=== PATIENT | female | born 1940 | race Caucasian/White ===

== ENCOUNTER 2023-08-03 23:29 | Inpatient (IN) | payer MEDICARE, OTHER, SELFPAY ==
[2023-08-03 20:08] VITALS: BP 212/97
--- NOTE | 2023-08-03 20:08 | ED.GENMED ---
History of Present Illness
General
Chief Complaint: Weakness
Source: patient and ambulance crew
Exam Limitations: none
Time Seen by Provider: 08/03/23 20:03
History of Present Illness
History of Present Illness:
See MDM
Past History
Past History
ED Past Medical History: GERD, HTN and Hypercholesterolemia
ED Past Surgical History: Cholecystectomy, Orthopedic (Bilateral knee replacement, and lumbar laminectomy) and Tonsilectomy
Social History
Tobacco: Non-smoker
Alcohol: None
Drug: None
Personal:
Living: assisted living
Employment: Retired
Family History
Family History: Other (Noncontributory)
Phy Exam
Physical Exam
Physical Exam:
See MDM
Course
Orders/Labs/Results
Orders:
Orders
08/03/23 20:07
Electrocardiogram (*1) Urgent
Reason for Study: Fatigue / Weakness
CT Head W/o Iv Contrast Urgent
Comment:
Reason For Exam: fall, head injury
EKG- Treatment ONCE
08/03/23 20:17
Basic Metabolic Panel Urgent
Complete Blood Count/With Diff Urgent
08/03/23 20:19
0.9% Sodium Chloride 1000 ml [Nss] 1,000 ml IV BOLUS
Acetaminophen [Tylenol] 1,000 mg PO NOW STA
08/03/23 20:40
COVID-19 Antigen Urgent
Source: Nasal Swab
Lactic Acid Q4H
Comment: CANCEL 2nd LACTIC ACID IF 1st LACTIC ACID IS LESS THAN 2
Blood Culture Q30M
FERMIN Source: Blood/Venous
Specimen Description:
Blood Culture Q30M
FERMIN Source: Blood/Venous
Specimen Description:
Influenza A+B Rapid Molecular Urgent
FERMIN Source: Nasal Swab
Specimen Description:
08/03/23 20:51
Urinalysis Reflex To Culture Urgent
Date Specimen was Collected: 08/03/23
Time Specimen was Collected: 20:50
Urine Microscopic Reflex Cult Urgent
08/03/23 21:09
CT Chest W/o Iv Contrast Urgent
Comment:
Reason For Exam: fall, R rib pain
CT Pelvis W/o Iv Contrast Urgent
Comment:
Reason For Exam: pelvic and b/l hip pain
08/03/23 22:17
Case Management Consult ONCE
Case Management Consult: Discharge Planning
Pt Eval And Treat Urgent
Activity Level: Ambulate
08/04/23 00:30
Lactic Acid Q4H
Comment: CANCEL 2nd LACTIC ACID IF 1st LACTIC ACID IS LESS THAN 2
Abnormal Lab Results
08/03/23 08/03/23
20:17 20:51
WBC 11.6 H 10^3/uL
(4.8-10.8)
Abs Immat Gran (auto) 0.1 H 10^3/uL
(0-0.05)
Absolute Neuts (auto) 9.4 H 10^3/uL
(1.4-6.5)
Absolute Monos (auto) 0.8 H 10^3/uL
(0.1-0.6)
Immature Gran % 0.7 H %
(0-0.5)
Neutrophils % 80.7 H %
(42.2-75.2)
Lymphocytes % 10.8 L %
(20.5-51.1)
Sodium 133 L mmol/L
(135-145)
BUN 33 H mg/dl
(7-17)
Creatinine 1.5 H mg/dL
(0.6-1.0)
Glucose 148 H mg/dl
(70-99)
Calcium 10.4 H mg/dl
(8.4-10.2)
Urine Bacteria (Reflex) Few A
(Negative)
Urine Albumin (Reflex) 3+ A
(Neg - Trace)
08/03/23 20:17
08/03/23 20:17
Vital Signs
Initial and Last Documented VS:
Initial Vital Signs
Temp Pulse
100.1 F 86
08/03/23 20:07 08/03/23 20:07
Last Documented Vital Signs
Temp Pulse Resp BP Pulse Ox
100.1 F 81 14 198/72 95
08/03/23 20:07 08/03/23 22:15 08/03/23 22:15 08/03/23 21:27 08/03/23 22:15
MDM/Problems Addressed
Differential Diagnosis Includes:
HPI and MDM Narrative:
82-year-old female presenting from [facility]. Patient states she has been falling over the past several days. She complains of increased weakness. EMS was called initially for lift assist. However, she called them
back because patient is unable to get up or move around.
On exam, patient appears uncomfortable. She complains of pain 'everywhere'. She has multiple bruises throughout her body ages of healing. Most significantly, there is large bruising to right axilla and right chest. Patient denies head trauma but
she has bruising to her right face.
Will obtain CT head, hip x-rays, chest x-ray and basic blood work. If everything negative, patient will require admission for case management and physical therapy for placement
Patient found to be febrile. Will obtain lactic acid, culture, COVID and flu and provide IV fluids and Tylenol
Physical exam
General: tearful and upset, nontoxic
HEENT: protecting airway
Neck: supple
CV: No evidence of cyanosis. Regular rate and rhythm
Resp: No accessory muscle use. Lungs clear
Abd: Non-distended and nontender
Extremities: Chronic appearing lymphedema to bilateral lower extremities
Neuro: alert
Psych: Tearful and upset
Skin: bruising throughout her body with evidence of healing. Large bruising to right axilla and right chest
Problems Addressed including Acute and Chronic Conditions affecting care:
1. Generalized weakness
Acuity: acute
Prognosis: stable
Details: Will obtain basic blood work
2. Frequent falls
Acuity: acute
Prognosis: unstable
Details: Will obtain CT head, rib x-ray and hip x-rays.
Updates
Imaging negative for fracture. No infectious source noted. Will admit overnight for Case management and physical therapy
Differential Diagnosis (but not limited to): Contusions, hip fracture, rib fracture
Testing considered: Cervical spine CT but no tenderness elicited
Drug therapy (if applicable): OTC meds, please see d/c instruction regarding Rx drugs
Amount and/or Complexity of Data Reviewed
Clinical info obtained from: Patient
External data reviewed: N/A
Labs I independently reviewed (but not limited to): Mild leukocytosis
Radiology: the CT scan was personally and independently reviewed. In addition, official CT report reviewed.
Pulse Ox: not hypoxic
EKG independently reviewed: Sinus rhythm, normal axis, no STEMI
Clinical Social Work Aide: N/A
Critical Care: N/A
Risk of Complication:
Social Determinants of health: Good social support
Discussed with other providers: Hospitalist
Escalation of Care includes Admit/Obs: given her weakness, deconditioning and frequent falls, will admit for case management physical therapy
Occasional wrong word or 'sound a like' substitutions may have occurred due to the inherent limitations of voice recognition software. Read the chart carefully and recognize, using context, where substitutions have occurred.
*Critical Care Note
Total Time (30-74mins, 75-104mins- exclusive of procedures): Not Applicable
ED Attending Note
-
Portions of this chart may have been created with voice recognition software.� Occasional wrong word or��sound alike� substitutions may have occurred due to the inherent limitations of voice recognition software.
Discharge Plan
Departure
Patient Disposition: Admit
Date of Disposition: 08/03/23
Time of Disposition: 22:20
Admit to: Med/Surg
Presentation/result/management discussed w/ accepting MD/DO: Hospitalist
Discharge Problem:
Frequent falls, Physical deconditioning
Prescriptions:
No Action
diltiazem HCl 240 mg Capsule,Extended Release 24hr
240 mg PO DAILY
aspirin 81 mg Tablet,Chewable
81 mg PO DAILY
rosuvastatin [Crestor] 20 mg Tablet
20 mg PO DAILY
acetaminophen [Tylenol] 325 mg Tablet
650 mg PO Q6HPRN PRN (Reason: FEVER)
sertraline 100 mg Tablet
100 mg PO QPM
trazodone 50 mg Tablet
25 mg PO HS
dextromethorphan-guaifenesin 10-100 mg/5 mL Liquid
10 ml PO Q6H PRN (Reason: COUGH)
metoprolol succinate 100 mg tablet extended release 24 hr
100 mg PO DAILY@1999
miconazole nitrate 2 % Powder
1 applic TOPICAL BIDPRN PRN (Reason: GROIN,ABD FOLDS FOR RASH)
alprazolam 0.5 mg Tablet
1 mg PO HSPRN PRN (Reason: ANXIETY,SLEEP)
magnesium hydroxide [Milk of Magnesia] 400 mg/5 mL Suspension
30 ml PO DAILYPRN PRN (Reason: CONSTIPATION)
menthol 10 mg Lozenge
10 mg PO TIDPRN PRN (Reason: SORE THROAT)
calcium carbonate 500 mg calcium (1,250 mg) Tablet,Chewable
1,000 mg PO DAILY PRN (Reason: HEARTBURN)
ondansetron 4 mg Tablet,Disintegrating
4 mg PO Q6H PRN (Reason: NAUSEA AND VOMITING)
cholecalciferol (vitamin D3) 25 mcg (1,000 unit) Tablet
50 mcg PO DAILY
Michelle Protect (zinc oxide) 12 % Cream
1 applic TOPICAL BID
miconazole nitrate [Miconazorb AF] 2 % Powder
1 applic topical BID Qty: 85 0RF
furosemide [Lasix] 20 mg tablet
20 mg PO Q OTHER DAY Qty: 14 0RF
Metamucil Packet
0.5 packet PO DAILYPRN PRN (Reason: constipation)
loperamide 2 mg Tablet
2 mg PO DAILYPRN PRN (Reason: diarrhea)
lidocaine 5 % Adhesive Patch,Medicated
1 patch TOPICAL DAILY
Interventions
Interventions:
*Risk Screen - Suicide Last Done: 08/03/23 20:07
*General Assessment Last Done: 08/03/23 20:07
*Neglect/Abuse Screening Last Done: 08/03/23 20:07
[2023-08-03 20:16] VITALS: BP 204/71
[2023-08-03 20:18] VITALS: BP 204/71
[2023-08-03 20:29] LABS: % Basophils 0.3 % (0-2); % Eosinophils 0.8 % (0-6); % Immature Granulocytes 0.7 % (0-0.5); % Lymphocytes 10.8 % (20.5-51.1); % Monocytes 6.7 % (1.7-9.3); % Neutrophils 80.7 % (42.2-75.2); Absolute Eosinophils 0.1 10^3/uL (0-0.7); Absolute Immature Granulocytes 0.1 10^3/uL (0-0.05); Absolute Lymphocytes 1.3 10^3/uL (1.2-3.4); Absolute Monocytes 0.8 10^3/uL (0.1-0.6); Absolute Neutrophils 9.4 10^3/uL (1.4-6.5); Hematocrit 37.9 % (37.0-47.0); Hemoglobin 12.9 g/dL (12.0-16.0); Mean Corpuscular Hgb 29.3 pg (27.0-31.0); Mean Corpuscular Volume 85.9 fL (81.0-99.0); Mean Platelet Volume 9.2 fL (7.4-10.4); Nucleated Red Blood Cells % 0 %; Platelet Count 187 10^3/uL (130-400); Red Blood Cell Count 4.41 10^6/uL (4.20-5.40); White Blood Cell Count 11.6 10^3/uL (4.8-10.8)
[2023-08-03 20:51] VITALS: BP 201/74
[2023-08-03 20:55] LABS: Blood Urea Nitrogen 33 mg/dl (7-17); Calcium 10.4 mg/dl (8.4-10.2); Carbon Dioxide 29 mmol/L (22-30); Chloride 102 mmol/L (98-107); Estimated Creatinine Clearance 36 ml/min; Glucose 148 mg/dl (70-99); Sodium 133 mmol/L (135-145); eGFR 34.36
[2023-08-03 21:04] LABS: Urine Albumin 3+ (Neg - Trace); Urine Bilirubin Negative (Negative); Urine Character Clear (Clear); Urine Color Yellow; Urine Glucose Negative (Negative); Urine Ketone Negative (Negative); Urine Leukocyte Negative (Negative); Urine Nitrite Negative (Negative); Urine Occult Blood Negative (Negative); Urine Urobilinogen Negative (Neg - 1+)
[2023-08-03 21:15] LABS: COVID-19 Antigen Negative (Negative)
[2023-08-03 21:15] LABS: Urine Bacteria Few (Negative); Urine Red Blood Cell 0-2 /HPF (0-2); Urine White Cell 0-2 /HPF (0-5)
--- NOTE | 2023-08-03 21:17 | PHANOTE ---
Addendum entered by Naila Richardson 08/04/23 16:27:
Pages 1 & 2 sent up to ER, home med list updated. Still missing page 4.
Addendum entered by Narciso Manuel 08/04/23 10:13:
08/04/2023, med rec tech, called twice at 0840 and 0945 and both times [facility] said that they will fax over pt.'s med. list, awaiting fax.
Addendum entered by Lorena Pinedo 08/03/23 21:32:
called [phone] and [facility] spoke to her and explained missing pages and she going to fax them over, awaiting fax
Addendum entered by Lorena Pinedo 08/03/23 21:19:
also called [phone], no answer
Original Note:
med rec note- [facility] paperwork missing page 2 and 4, called [facility] at [phone] but no answer
[2023-08-03 21:27] VITALS: BP 198/72
[2023-08-03] MEDS: TYLENOL 1000 MG PO (21:46)
[2023-08-03] MEDS: NSS 1000 IV (21:47)
--- NOTE | 2023-08-03 22:58 | HPS.HSE ---
Addendum entered and electronically signed by Paula Sanches MD 08/03/23 23:04:
Continue loperamide for chronic diarrhea.
Original Note:
Family Physician
-
Family Physician: Renee Bruno DO
Chief Complaint
-
falls
History of Present Illness
82-year-old female past medical history of GERD, hypertension, hypercholesteremia, CKD 3B, lymphedema, stasis dermatitis, insomnia, obesity, chronic ambulatory dysfunction, insomnia presenting from [facility] with falls and weakness and vertigo
since the weekend. She denies passing out. She complains of pain in her upper legs/pelvic area. She had a fever in the hospital today. She denies any symptoms of infection such as headache, sore throat or runny nose, cough, shortness of breath,
chest pain, nausea or vomiting, abdominal pain, urinary symptoms.
She states that she has been having diarrhea for the past 6 months for which she has been taking antidiarrheal. She states that her bilateral lower extremity lymphedema has been stable and has nurse perform wound care. Her legs are not painful and
she denies any discharge from the legs.
Medical History
Past Medical History
Past Medical History: Reports Other ( GERD, hypertension, hypercholesteremia, CKD 3B, lymphedema, stasis dermatitis, insomnia, obesity, chronic ambulatory dysfunction, insomnia)
Past Surgical History: Reports Other ( Cholecystectomy, Orthopedic (Bilateral knee replacement, and lumbar laminectomy) and Tonsilectomy)
Social History
Tobacco: Non-smoker
Alcohol: None
Drug: None
Family History
Family History: Not pertinent
Allergies / Home Medications
Allergies reflects when Allergies were last updated in [facility].
Home Medications with original date entered in [facility]
Allergy/Medication List:
Allergies
Allergy/AdvReac Type Severity Reaction Status Date / Time
shellfish derived Allergy Rash Verified 01/04/23 20:57
Home Medications
aspirin 81 mg chewable tablet 81 mg PO DAILY Blood clot prevention/tx 01/10/22
diltiazem HCl 240 mg capsule,extended release 24 hr 240 mg PO DAILY HYPERTENSION 01/10/22
rosuvastatin 20 mg tablet (Crestor) 20 mg PO DAILY High cholesterol 01/10/22
acetaminophen 325 mg tablet (Tylenol) 650 mg PO Q6HPRN PRN FEVER 09/12/22
sertraline 100 mg tablet 100 mg PO QPM Depression 09/12/22
alprazolam 0.5 mg tablet 1 mg PO HSPRN PRN ANXIETY,SLEEP 12/10/22
calcium carbonate 500 mg calcium (1,250 mg) chewable tablet 1,000 mg PO DAILY PRN HEARTBURN 12/10/22
cholecalciferol (vitamin D3) 25 mcg (1,000 unit) tablet 50 mcg PO DAILY Supplement 12/10/22
dextromethorphan-guaifenesin 10 mg-100 mg/5 mL oral liquid 10 ml PO Q6H PRN COUGH 12/10/22
magnesium hydroxide 400 mg/5 mL oral suspension (Milk of Magnesia) 30 ml PO DAILYPRN PRN CONSTIPATION 12/10/22
menthol 10 mg lozenges 10 mg PO TIDPRN PRN SORE THROAT 12/10/22
metoprolol succinate 100 mg tablet,extended release 24 hr 100 mg PO DAILY@2000 Blood Pressure 12/10/22
miconazole nitrate 2 % topical powder 1 applic topical BIDPRN PRN GROIN,ABD FOLDS FOR RASH 12/10/22
ondansetron 4 mg disintegrating tablet 4 mg PO Q6H PRN NAUSEA AND VOMITING 12/10/22
trazodone 50 mg tablet 25 mg PO HS INSOMNIA 12/10/22
zinc oxide 12 % topical cream (Michelle Protect (zinc oxide)) 1 applic topical BID GROIN AND BUTTOCKS FOR REDNESS 12/10/22
furosemide 20 mg tablet (Lasix) 20 mg PO Q OTHER DAY Fluid retention/Swelling #14 tabs 12/12/22
miconazole nitrate 2 % topical powder (Miconazorb AF) 1 applic topical BID Skin issues #85 grams 12/12/22
lidocaine 5 % topical patch 1 patch topical DAILY low back 08/03/23
loperamide 2 mg tablet 2 mg PO DAILYPRN PRN diarrhea 08/03/23
psyllium 0.5 packet PO DAILYPRN PRN constipation 08/03/23
Review of Systems
-
History Source: Patient
A 12 point ROS was completed and negative except as noted: Yes
Constitutional: Reports No Symptoms
EENT: Reports No Symptoms
Respiratory: Reports No Symptoms
Cardiac: Reports No Symptoms
Abdomen/GI: Reports No Symptoms
: Reports No Symptoms
Musculoskeletal: Reports No Symptoms
Skin: Reports No Symptoms
Neurological: Reports No Symptoms
Endocrine: Reports No Symptoms
Hematologic/Lymphatic: Reports No Symptoms
Psych: Reports No Symptoms
Physical Exam
Vital Signs
Vital Signs
Temp Pulse Resp BP Pulse Ox
100.7 F H 81 14 198/72 95
08/03/23 22:38 08/03/23 22:15 08/03/23 22:15 08/03/23 21:27 08/03/23 22:15
Physical Exam
General: Well Developed, Well Nourished and No Apparent Distress
HEENT: NormoCephalic, Moist mucous membranes and Atraumatic
Respiratory: Clear
Cardiac: S1/S2 and Regular Rhythm; No Murmur or Rub
GI: Soft, Non Tender, Non Distended and Normal Bowel Sounds; No Organomegaly
Rectal: Deferred by Provider
Musculoskeletal: No Clubbing, No Cyanosis and No Edema
Skin: No Rash
Neuro: Nonfocal/grossly intact
Laboratory Results
-
08/03/23 20:17
08/03/23 20:17
Laboratory Results
Lactic Acid 1.0 mmol/L (0.7-2.0) 08/03/23 20:40
Total Bilirubin Cancelled 08/03/23 20:17
AST Cancelled 08/03/23 20:17
ALT Cancelled 08/03/23 20:17
Alkaline Phosphatase Cancelled 08/03/23 20:17
Data Reviewed
-
Lab Data: Labs Reviewed by me
Old Records: Reviewed
Impression/Plan
-
IMPRESSION:
PLAN:
# Fever/weakness/falls unclear etiology, possibly mild cellulitis of chronic lymphedema of lower extremities
-No focal symptoms of infection
-COVID-negative
-Influenza negative
-Urinalysis negative
-Check blood cultures
-Cefazolin to cover cellulitis
-PT/OT
# Hypertensive urgency likely chronic possibly exacerbated by hypercalcemia
-Continue metoprolol
-Start losartan 25 mg
-Unclear if still on diltiazem, hold
-As needed hydralazine
# Hypercalcemia
-Check vitamin D, PTH
-Hold calcium supplements if she still takes
Chronic lymphedema/venous stasis
CKD 3B
-Renal function baseline
GERD
Hypercholesterolemia
-Continue statin
Insomnia
-Continue trazodone
Chronic ambulatory dysfunction
Anxiety/depression
-Continue Xanax
-Continue sertraline
Full code
DVT prophylaxis�heparin
Regular diet
[2023-08-04] VITALS (9 sets, daily range): BP systolic 150–196; BP diastolic 66–89; BMI 49.6
[2023-08-04] MEDS: ANCEF 5 IV ×4 (00:11→23:46)
[2023-08-04 06:45] LABS: % Basophils 0.4 % (0-2); % Eosinophils 0.8 % (0-6); % Immature Granulocytes 0.8 % (0-0.5); % Lymphocytes 13.3 % (20.5-51.1); % Monocytes 7.8 % (1.7-9.3); % Neutrophils 76.9 % (42.2-75.2); Absolute Eosinophils 0.1 10^3/uL (0-0.7); Absolute Immature Granulocytes 0.1 10^3/uL (0-0.05); Absolute Lymphocytes 1.1 10^3/uL (1.2-3.4); Absolute Monocytes 0.7 10^3/uL (0.1-0.6); Absolute Neutrophils 6.5 10^3/uL (1.4-6.5); Hematocrit 37.1 % (37.0-47.0); Hemoglobin 12.4 g/dL (12.0-16.0); Mean Corp Hgb Conc. 33.4 g/dL (33.0-37.0); Mean Corpuscular Hgb 29.2 pg (27.0-31.0); Mean Corpuscular Volume 87.3 fL (81.0-99.0); Mean Platelet Volume 9.5 fL (7.4-10.4); Nucleated Red Blood Cells % 0 %; Platelet Count 152 10^3/uL (130-400); Red Blood Cell Count 4.25 10^6/uL (4.20-5.40); White Blood Cell Count 8.4 10^3/uL (4.8-10.8)
[2023-08-04 07:02] LABS: ALT (SGPT) 12 U/L (0-35); AST (SGOT) 20 U/L (14-36); Alkaline Phosphatase 68 U/L (38-126); Blood Urea Nitrogen 28 mg/dl (7-17); Calcium 10.1 mg/dl (8.4-10.2); Carbon Dioxide 29 mmol/L (22-30); Chloride 101 mmol/L (98-107); Estimated Creatinine Clearance 38 ml/min; Glucose 118 mg/dl (70-99); Potassium 4.1 mmol/L (3.5-5.1); Sodium 136 mmol/L (135-145); Total Bilirubin 1.2 mg/dl (0.2-1.3); Total Protein 5.8 g/dl (6.3-8.2); eGFR 37.33
[2023-08-04 07:14] LABS: Intact PTH 198.3 pg/ml (13.6-85.8)
[2023-08-04 07:24] LABS: Vitamin D, 25-OH*** 28.9 ng/mL (30-80)
[2023-08-04] MEDS: ZINC OXIDE OINTMENT 1 APPLIC TOPICAL ×2 (08:34→20:09)
[2023-08-04] MEDS: LIDOCAINE 4% PATCH 1 PATCH TOPICAL (08:36)
[2023-08-04] MEDS: HEPARIN SC ×2 (08:36→08:47)
[2023-08-04] MEDS: APRESOLINE 5 MG IV ×3 (11:43→23:47)
[2023-08-04] MEDS: LOW STRENGTH ASPIRIN PO (11:49)
--- NOTE | 2023-08-04 11:49 | PTCARENOTE ---
Addendum entered by Eleanor Louis RN 08/04/23 14:03:
Awaiting pharmacy to clarify if patient takes cozaar. both pharmacy and MD aware.
Addendum entered by Eleanor Louis RN 08/04/23 11:57:
attempted to take patients blood sugar due to change in patient mood, patient states 'i have the right to refuse do not poke me' MD aware.
Original Note:
Patient refusing morning aspirin and heparin. Patient agitated telling staff to 'leave me alone'. this morning patient was pleasant now angry with staff. MD aware.
--- NOTE | 2023-08-04 12:12 | W.PN.HOSP.TC ---
Today's Communication/Plan
-
cw abx
PT/OT eval and tx
Assessment / Plan
Assessment / Plan
# Fever/weakness/falls unclear etiology, possibly mild cellulitis of chronic lymphedema of lower extremities
-No focal symptoms of infection
-COVID-negative
-Influenza negative
-Urinalysis negative
-Check blood cultures
-Cefazolin to cover cellulitis
-PT/OT
# Hypertensive urgency
-Continue metoprolol
-CW Prn hydralazine
- DW Pharmacist -await clarification on her meds
-Unclear if still on diltiazem, hold
-
# Hypercalcemia
Normalized now.Intermittenlty high but mild degree
-Check vitamin D; PTH elevated suspect sec to CKD.Follow with Nephro for secondary hyperparathyroid treatments
Chronic lymphedema/venous stasis
CKD 3B
-Renal function baseline
GERD
Hypercholesterolemia
-Continue statin
Insomnia
-Continue trazodone
Chronic ambulatory dysfunction
Anxiety/depression
-Continue Xanax
-Continue sertraline
Full code
DVT prophylaxis�heparin
Regular diet
Anticipated Discharge: 24 - 48 hours
Subjective/Interval History
-
Date of Service: August 04, 2023
pt sleeping
Got irritable when woken up' what do you want?' and goes back to sleep
No events from ovenight per RN
Objective Data
-
Labs:
Laboratory Results
08/04/23 08/04/23
06:21 06:21
WBC 8.4
Hgb 12.4
Hct 37.1
Plt Count 152
Sodium 136
Potassium 4.1
Chloride 101
Carbon Dioxide 29
BUN 28 H
Creatinine 1.4 H
Glucose 118 H
Calcium Cancelled 10.1
Total Bilirubin 1.2
AST 20
ALT 12
Alkaline Phosphatase 68
Vital Signs:
Vital Signs
Temp Pulse Resp BP Pulse Ox
98.6 F 66 18 188/75 91
08/04/23 11:25 08/04/23 11:43 08/04/23 11:25 08/04/23 11:43 08/04/23 11:25
Review of Systems
-
Unable to obtain full review of systems at this time due to: Other (Due to her sleeping)
Physical Exam
-
General: No Apparent Distress
HEENT: Moist Mucous Membranes
Respiratory: Clear to Auscultation (anteriorly)
Cardiac: Regular Rhythm and S1/S2
GI: Soft
Neuro: Other (sleepy ;not cooperative so didnt do neuro exam)
Psych: Calm
Data Reviewed
-
Labs: Labs Reviewed by me
--- NOTE | 2023-08-04 14:05 | PTCARENOTE ---
Addendum entered by Eleanor Louis RN 08/04/23 15:46:
BP still elevated, ordered another IV hydralazine
Original Note:
PRN hydralazine given for patient high BP, when attempting to recheck patient screaming at staff. Recheck BP 173/83. Still waiting for verification of cozaar medication. MD made aware of BP.
[2023-08-04] MEDS: COZAAR PO (15:48)
[2023-08-04] MEDS: XANAX 0.25 MG PO (17:34)
--- NOTE | 2023-08-04 18:28 | PTCARENOTE ---
Arrived to unit in bed. AAOx3. Reports feeling anxious. Dr. Gtz made aware. 1x order for po xanax given. Oriented to room.
[2023-08-04] MEDS: XANAX 1 MG PO (20:06)
[2023-08-04] MEDS: TOPROL XL 100 MG PO (20:07)
[2023-08-04] MEDS: HEPARIN 5000 UNITS SC (20:08)
[2023-08-04] MEDS: TYLENOL 650 MG PO (20:36)
[2023-08-05] MEDS: COZAAR 25 MG PO (05:17)
[2023-08-05] MEDS: TYLENOL 650 MG PO (05:19)
[2023-08-05] MEDS: ULTRAM 25 MG PO (05:46)
[2023-08-05 06:15] VITALS: BP 177/78
--- NOTE | 2023-08-05 06:28 | PTCARENOTE ---
Throughout night patient increasingly anxious, uncooperative, and yelling out. Patient with multiple demands. Repositioned for comfort multiple times, as well as emotional support provided. Patient called daughters and son stating she was 'dying',
prompting a visit from son at 0445. Patient's son extremely apologetic for patient yelling out and being uncooperative with staff. Patient complained to son about generalized pain from prior falls and son asked this RN if it would be possible to
get his mother something stronger for pain control and to calm her down. TEENAGE PROGRAM DIRECTOR made aware of son's request, orders for 25 mg PO Ultram - given as ordered.
[2023-08-05 06:46] LABS: Hematocrit 39.3 % (37.0-47.0); Hemoglobin 13.2 g/dL (12.0-16.0); Mean Corp Hgb Conc. 33.6 g/dL (33.0-37.0); Mean Corpuscular Hgb 29.2 pg (27.0-31.0); Mean Corpuscular Volume 86.9 fL (81.0-99.0); Mean Platelet Volume 9.7 fL (7.4-10.4); Platelet Count 150 10^3/uL (130-400); Red Blood Cell Count 4.52 10^6/uL (4.20-5.40); Red Cell Dist. Width 13.9 % (11.5-14.5); White Blood Cell Count 9.6 10^3/uL (4.8-10.8)
[2023-08-05 07:07] LABS: Blood Urea Nitrogen 22 mg/dl (7-17); Calcium 10.2 mg/dl (8.4-10.2); Carbon Dioxide 27 mmol/L (22-30); Chloride 103 mmol/L (98-107); Estimated Creatinine Clearance 44 ml/min; Glucose 141 mg/dl (70-99); Potassium 3.7 mmol/L (3.5-5.1); Sodium 133 mmol/L (135-145); eGFR 44.91
[2023-08-05 07:25] VITALS: BP 198/97
[2023-08-05] MEDS: ANCEF 5 IV ×3 (08:26→23:36)
[2023-08-05] MEDS: LIDOCAINE 4% PATCH 1 PATCH TOPICAL (08:26)
[2023-08-05] MEDS: HEPARIN 5000 UNITS SC ×2 (08:26→21:13)
[2023-08-05] MEDS: APRESOLINE 5 MG IV (08:31)
[2023-08-05] MEDS: LOW STRENGTH ASPIRIN 81 MG PO (08:32)
[2023-08-05] MEDS: ZINC OXIDE OINTMENT 1 APPLIC TOPICAL ×2 (08:33→21:16)
[2023-08-05 09:44] VITALS: BP 246/113
[2023-08-05] MEDS: CARDIZEM CD 240 MG PO (11:15)
--- NOTE | 2023-08-05 11:37 | W.PN.HOSP.TC ---
Today's Communication/Plan
-
see plan above
Assessment / Plan
Assessment / Plan
# Fever/weakness/falls unclear etiology, possibly mild cellulitis in left leg; chronic lymphedema of lower extremities
-COVID-negative
-Influenza negative
-Urinalysis negative
-Neg blood cultures
- CT chest no pneumonia
-Cefazolin to cover cellulitis
-PT/OT
- Wound care consult chronic lymphedema
# Hypertensive urgency
-Continue metoprolol
-Add back her routine diltiazem.
-CT of the head shows no acute intracranial findings.
-CW Prn hydralazine
# Falls
CT chest showed no evidence of fractures. Pelvic CT shows no evidence of fractures. Check x-ray of the right femur because of the pain
# Hypercalcemia
Normalized now.Intermittenlty high but mild degree
-Check vitamin D and phosphorus; PTH elevated suspect sec to CKD.Follow with Nephro for secondary hyperparathyroid treatments
Chronic lymphedema/venous stasis
CKD 3B
-Renal function baseline
GERD
Hypercholesterolemia
-Continue statin
Insomnia
-Continue trazodone
Chronic ambulatory dysfunction
Anxiety/depression
-Continue Xanax
-Continue sertraline
Full code
DVT prophylaxis�heparin
Regular diet
Discussed with son at bedside
Anticipated Discharge: 24 - 48 hours
Subjective/Interval History
-
Date of Service: August 05, 2023
Patient has been having some lately in the last 2 weeks. According to her son at bedside it is a change for her. She normally walks with a walker and has been doing okay for the last year or so. She usually gets in trouble with weakness and fall
when she has an acute medical issue.
Patient complains of cough as a symptom but no shortness of breath. No chest pain.
Since the fall she complains of left arm pain and the right leg pain. Her right leg pain seems to be focused in the thigh.
Denies any diarrhea.
Denies any dysuria.
No fever chills today.
Objective Data
-
Labs:
Laboratory Results
08/05/23
06:19
WBC 9.6
Hgb 13.2
Hct 39.3
Plt Count 150
Sodium 133 L
Potassium 3.7
Chloride 103
Carbon Dioxide 27
BUN 22 H
Creatinine 1.2 H
Glucose 141 H
Calcium 10.2
Vital Signs:
Vital Signs
Temp Pulse Resp BP Pulse Ox
97.7 F 66 18 246/113 95
08/05/23 07:25 08/05/23 07:25 08/05/23 07:25 08/05/23 09:44 08/05/23 10:08
I&O
08/04/23 08/05/23 08/06/23
06:59 06:59 06:59
Intake Total 1680 / 1680
Output Total 3400 / 3400
Balance -1720 / -1720
Review of Systems
-
Constitutional: Denies Fever
EENT: Denies Sore Throat
Respiratory: Denies Cough or Trouble Breathing
Cardiac: Denies Chest Pain
Abdomen/GI: Denies Abdominal Pain, Nausea or Vomiting
Genitourinary: Denies Dysuria
Neuro: Denies Dizzy
Physical Exam
-
General: No Apparent Distress
HEENT: Moist Mucous Membranes
Respiratory: Clear to Auscultation; Negative Wheezes or Crackles
Cardiac: Regular Rhythm and S1/S2; Negative Tachycardic
GI: Soft and Other (obese)
Musculoskeletal: Other (BL LE lymphedema with some erythema in left lateral leg ; pain in palpation of right femur; ROM ok in left shoulder/elbow)
Neuro: AO x 3
Psych: Calm; Negative Confused
Data Reviewed
-
Labs: Labs Reviewed by me
[2023-08-05] MEDS: ZOLOFT 100 MG PO (12:03)
[2023-08-05 12:10] LABS: Phosphorus 3.3 mg/dl (2.5-4.5)
[2023-08-05] MEDS: ULTRAM 50 MG PO ×2 (12:49→21:14)
[2023-08-05 13:03] VITALS: BP 180/118
[2023-08-05 15:25] VITALS: BP 151/94
[2023-08-05] MEDS: ZOFRAN 4 MG IV (15:35)
--- NOTE | 2023-08-05 15:51 | WOUNDNOTE ---
[facility] RN NOTE: Review chart, met with patient and son Dalton. Patient lives in Personal Care at [facility]. Son reports poor mobility. Son states patient has leg wraps and lymphedema pumps at home but patient does not like and will not wear. Patient
verbally agreed with son's statement. Bilateral LE dry, edematous with changes consistent with lymphedema. Patient began dry heaving/vomiting during assessment. Will resume consultation later so back of LE cam be viewed. Per son, legs have been
'weeping. Static air overlay ordered. DONYA Lamb and hospitalist made aware of plan. Static air overlay ordered.
--- NOTE | 2023-08-05 16:50 | CM ---
Cm following re: d/c planning
Chart reviewed
Cm met with the patient and her son at bedside; IA completed
Patient's son answered questions asked due to the patient's cognitive deficit
Pt resides at [facility] in a 2nd floor apartment
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
Pt has recent PT/OT hx with [facility], has been to [facility], [facility], & for rehab, & has a w/c & r/w for use if needed
Pt has confirmed prescription coverage and rx's are filled at [facility]
Pt PCP-Renee Bruno
Awaiting PT/OT evals for recommendations r/t to discharge planning
PLAN; CM following for needs
[2023-08-05] MEDS: CRESTOR 20 MG PO (17:05)
[2023-08-05] MEDS: TOPROL XL 100 MG PO (21:14)
[2023-08-05] MEDS: DESYREL 100 MG PO (21:15)
[2023-08-05] MEDS: XANAX 1 MG PO (21:16)
[2023-08-05 23:39] VITALS: BP 179/88
[2023-08-06] VITALS (9 sets, daily range): BP systolic 112–220; BP diastolic 53–99
[2023-08-06] MEDS: ULTRAM 50 MG PO (03:12)
--- NOTE | 2023-08-06 03:59 | PTCARENOTE ---
Patient yelling out, went to check on patient. Patient screaming 'water!' multiple times, when given pt cup of water it was only half way full, pt stating it was empty and threw cup at this RN, spilling water on radiator. Pt also stating she 'will
throw herself onto the floor until she gets what she wants'. Safety measures in place, including bed alarm. Patient reassured she has been given multiple cups of water throughout the night. Asked patient if she needed anything else, to which she
responded this RN is 'too stupid to understand'.
[2023-08-06] MEDS: TYLENOL 650 MG PO ×2 (06:13→18:16)
[2023-08-06] MEDS: ANCEF 5 IV ×3 (08:51→23:57)
[2023-08-06] MEDS: CARDIZEM CD 240 MG PO (08:52)
[2023-08-06] MEDS: LIDOCAINE 4% PATCH 1 PATCH TOPICAL (08:52)
[2023-08-06] MEDS: HEPARIN 5000 UNITS SC ×2 (08:53→21:08)
[2023-08-06] MEDS: LOW STRENGTH ASPIRIN 81 MG PO (08:53)
[2023-08-06] MEDS: ZOLOFT 100 MG PO (08:53)
[2023-08-06] MEDS: ZINC OXIDE OINTMENT 1 APPLIC TOPICAL ×2 (09:12→21:13)
--- NOTE | 2023-08-06 11:00 | W.PN.HOSP.TC ---
Today's Communication/Plan
-
Psychiatry consultation
Follow blood pressure closely
Continue with PT OT
Assessment / Plan
Assessment / Plan
# Fever/weakness/falls unclear etiology, possibly mild cellulitis in left leg; chronic lymphedema of lower extremities
-COVID-negative
-Influenza negative
-Urinalysis negative
-Neg blood cultures
- CT chest no pneumonia
-Cefazolin to cover cellulitis
-cw PT/OT
-cw Wound care for chronic lymphedema
# Hypertensive urgency
-Patient 's son thinks that blood pressure was under control but when she landed in the hospital her blood pressure readings were high
-Patient on her home regimen now blood pressure controlled.
-CT of the head shows no acute intracranial findings.
-CW Prn hydralazine
# Change in personality-per patient's son , she has been having change in personality for a week before coming into the hospital. Doubt mild cellulitis doing it. I am more concerned about her hypertensive urgency picture on presentation and she
could as well have a hypertensive encephalopathy. Advised patient's son to get me the readings for at least couple of days before presentation to see how the blood pressure was and if it was normal then I would do an MRI of the brain to rule out
any acute stroke causing blood pressure dysregulations.
Consult psychiatry to rule out any major mood disorder.
# Falls
CT chest showed no evidence of fractures. Pelvic CT shows no evidence of fractures. neg x-ray of the right femur
CW PT
# Hypercalcemia
Normalized now.Intermittenlty high but mild degree.
Phosphorus normal.
Vitamin D deficiency noted.
Based on this degree of elevation on admission rule out primary parathyroidism. She does have chronic kidney disease which could cause secondary hyperparathyroidism. Advised an endocrinology follow-up. Phosphorus is normal.
#Vitamin D deficiency-increase dose of vitamin D3
Chronic lymphedema/venous stasis
CKD 3B
-Renal function baseline
GERD
Hypercholesterolemia
-Continue statin
Insomnia
-Continue trazodone
Chronic ambulatory dysfunction
Anxiety/depression
-Continue Xanax
-Continue sertraline
Full code
DVT prophylaxis�heparin
Regular diet
Discussed with son at bedside
Anticipated Discharge: 24 - 48 hours
Subjective/Interval History
-
Date of Service: August 06, 2023
Patient's son at bedside. He is concerned about her personality changes.
Patient was up all night and had made multiple calls to him and other people. She was noted to be emotionally labile. Did not see any hallucinations or delusions.
This morning she is sleeping because she did not get enough sleep last night.
1 week prior to hospitalization son said there was a change in her personality. He has a change in personality associated with falls in the past as well.
He thinks her blood pressure was well-controlled prior to coming into the hospital. Her mobility was pretty decent before this falls. He showed me a video from Jul of this year where she seemed pretty independent with a walker.
She is sleepy but arousable. She is oriented to place person. She seems appropriate
Objective Data
-
Vital Signs:
Vital Signs
Temp Pulse Resp BP Pulse Ox
98.9 F 70 20 134/70 92
08/06/23 07:40 08/06/23 08:52 08/06/23 07:40 08/06/23 08:52 08/06/23 09:30
I&O
08/05/23 08/06/23 08/07/23
06:59 06:59 06:59
Intake Total 1680 / 1680 2320 / 2320
Output Total 3400 / 3400 3000 / 3000
Balance -1720 / -1720 -680 / -680
Review of Systems
-
Unable to obtain full review of systems at this time due to: Other (Limited due to her sleepiness)
Respiratory: Denies Trouble Breathing
Cardiac: Denies Chest Pain
Abdomen/GI: Reports Diarrhea (Apparently diarrhea before coming to the hospital but here she has brown formed stools.); Denies Nausea or Vomiting
Neuro: Reports Dizzy
Physical Exam
-
General: No Apparent Distress
HEENT: Moist Mucous Membranes
Respiratory: Clear to Auscultation
Cardiac: Regular Rhythm and S1/S2
GI: Soft and Nontender
Neuro: Negative Awake (Sleepy but oriented when woken up) or Alert
Psych: Calm
Data Reviewed
-
Labs: Labs Reviewed by me
[2023-08-06] MEDS: HYDROPHOR 1 APPLIC TOPICAL (11:34)
[2023-08-06] MEDS: VITAMIN D3 (cholecalciferol) 2000 UNITS PO (11:34)
--- NOTE | 2023-08-06 12:39 | WOUNDNOTE ---
[facility] RN NOTE: Visited patient to follow up on lymphedema and orders. Met with patient, son Dalton and Dr. Gtz. Patient with + palpable pulse. Per Dr. Gtz, ok order bilateral compression with ARELIS. Patients legs cleaned with Vashe soaked gauze.
Nursing to follow up with applying Aquaphor and ARELIS wraps. DONYA Marcano given update. Careplan, discharge and orders updated. Will follow as needed.
--- NOTE | 2023-08-06 14:46 | W.PN.UPDATE ---
Update Note
Progress Note Update
Saw the patient but she was drowsy and kept falling off to sleep so I was not successful in interviewing her. Called so who was very good historian. He stated she tends to get depressed more in July to September. She however has had depression for
much of her life. Currently is on Zoloft 100, Trazodone, 100 hs and Xanax 1 mg prn prescibed bey her FP. Son reports change in MS over past 2 weeks, calling family at night and sleeping during the day. Prior to that was apparently social,
cognitively intact and able to do ADL's.
Currently investigated for hypertensive encephalopathy, cause of the change in MS not clear.
Unfortunately I could not assess the patient.
We will F/U through the department.
Discussed with son.
[2023-08-06] MEDS: APRESOLINE 5 MG IV ×2 (15:15→17:39)
--- NOTE | 2023-08-06 16:24 | PTCARENOTE ---
BP elevated, 189/98, 79% O2, gave hydralazine prn and placed pt on O2, notified.
--- NOTE | 2023-08-06 16:25 | PTCARENOTE ---
Rpt BP at 1600 was 220/99, 92% on 2 lpm, MD contacted again, will repeat BP in 15 minutes
[2023-08-06] MEDS: CRESTOR 20 MG PO (17:40)
--- NOTE | 2023-08-06 17:47 | PTCARENOTE ---
Pt BP manually is 190/87, made aware, STAT does of hydralazine given, will recheck at 1815.
--- NOTE | 2023-08-06 18:22 | PTCARENOTE ---
Pt recvd a STAT dose of hydralazine 5 mg, rechecked BP and it is 155/53 and a fever of 100.6, 650mg Tylenol given. will reassess
[2023-08-06 19:25] LABS: Glucose - Point of Care 109 mg/dl (70-99)
--- NOTE | 2023-08-06 19:30 | PTCARENOTE ---
Upon walking rounds, Patient has been drowsy and very hard to wake up ( but didn't really sleep last night). now on 4L pf oxygen- 91% ( was on RA last night). BP- 186/77, temp- 99.3. JOSELUIS Zhou made aware. Stat orders for Covid/CXR/ labs/
ABG.
[2023-08-06 20:17] LABS: % Basophils 0.2 % (0-2); % Eosinophils 0.2 % (0-6); % Immature Granulocytes 1.1 % (0-0.5); % Lymphocytes 10.3 % (20.5-51.1); % Monocytes 11.5 % (1.7-9.3); % Neutrophils 76.7 % (42.2-75.2); Absolute Immature Granulocytes 0.1 10^3/uL (0-0.05); Absolute Lymphocytes 0.9 10^3/uL (1.2-3.4); Absolute Neutrophils 6.7 10^3/uL (1.4-6.5); Hematocrit 36.6 % (37.0-47.0); Hemoglobin 12.4 g/dL (12.0-16.0); Mean Corp Hgb Conc. 33.9 g/dL (33.0-37.0); Mean Corpuscular Hgb 29.8 pg (27.0-31.0); Mean Platelet Volume 9.4 fL (7.4-10.4); Nucleated Red Blood Cells % 0 %; Platelet Count 150 10^3/uL (130-400); Red Blood Cell Count 4.16 10^6/uL (4.20-5.40); Red Cell Dist. Width 14.1 % (11.5-14.5); White Blood Cell Count 8.7 10^3/uL (4.8-10.8)
[2023-08-06 20:26] LABS: COVID-19 Antigen Positive (Negative)
[2023-08-06 20:35] LABS: Lactic Acid 0.6 mmol/L (0.7-2.0)
[2023-08-06 20:38] LABS: Blood Urea Nitrogen 20 mg/dl (7-17); Calcium 9.5 mg/dl (8.4-10.2); Carbon Dioxide 30 mmol/L (22-30); Chloride 98 mmol/L (98-107); Estimated Creatinine Clearance 44 ml/min; Glucose 110 mg/dl (70-99); Potassium 3.9 mmol/L (3.5-5.1); Sodium 127 mmol/L (135-145); eGFR 44.91
[2023-08-06] MEDS: TOPROL XL 100 MG PO (21:30)
[2023-08-06 21:42] LABS: B.E. 3.7 mmol/L; HCO3 30.5 mmol/L (21-28); O2 Saturation % 96.9 % (94-98); PCO2 54 mmHg (32-35); PO2 75 mmHg (83-108); pH 7.36 (7.35-7.45)
[2023-08-06] MEDS: DESYREL PO (21:44)
--- NOTE | 2023-08-06 21:45 | PTCARENOTE ---
Received report from Mary NAQVI, patient transferred into room 2125 via bed with all belongings. Assessment as documented, patient Ox3 but lethargic and arouses to tactile stimuli. On 4L NC, sat 94%, breathing very shallow with diminished lung sounds
throughout. HR regular with weak PP, +3 BLLE with red/warm cellulitic legs. Purewick placed for incontinence, brief maintained. Bed alarmed, call adrian within reach, care ongoing.
[2023-08-06 22:04] LABS: Procalcitonin 0.12 ng/ml (0.0-0.25)
--- NOTE | 2023-08-06 23:40 | W.PN.UPDATE ---
Update Note
Progress Note Update
1929 RN reports pt drowsy most of day, low grade temps and new hypoxia since afternoon (ra to 4L)
Will check covid, labs, cxr
1999 covid positive --> will start decadron
lactic and procal normal
pt was able to be aroused for me stated her name but did fall back to sleep. no resp distress noted. Of note pt was awake all night previous night.
[2023-08-07] VITALS (13 sets, daily range): BP systolic 120–208; BP diastolic 59–180
[2023-08-07] MEDS: LASIX 20 MG IV ×2 (00:16→12:53)
--- NOTE | 2023-08-07 01:24 | W.PN.UPDATE ---
Update Note
Progress Note Update
ABG results reviewed, compensating at present.
On O2 4l 94% RR 20
Cxr noted Pulmonary edema, takes Lasix at home, Patient is not on Lasix at present. Creatinine 1.2, will give Lasix 20mg IV and order ProBNP
Otherwise patient stable at present, resting in bed, Stable VS
Son Héctor made aware.
[2023-08-07] MEDS: CARDIZEM CD 240 MG PO (07:46)
[2023-08-07] MEDS: LOW STRENGTH ASPIRIN 81 MG PO (07:47)
[2023-08-07] MEDS: DECADRON 6 MG IV (07:47)
[2023-08-07] MEDS: ZOLOFT 100 MG PO (07:47)
[2023-08-07] MEDS: HEPARIN 5000 UNITS SC ×2 (07:47→19:38)
[2023-08-07] MEDS: VITAMIN D3 (cholecalciferol) 2000 UNITS PO (07:47)
[2023-08-07] MEDS: ANCEF 5 IV (07:48)
[2023-08-07] MEDS: HYDROPHOR 1 APPLIC TOPICAL (07:49)
[2023-08-07] MEDS: ZINC OXIDE OINTMENT 1 APPLIC TOPICAL ×2 (07:49→20:10)
[2023-08-07] MEDS: LIDOCAINE 4% PATCH 1 PATCH TOPICAL (07:49)
[2023-08-07 09:08] LABS: Hematocrit 36.1 % (37.0-47.0); Hemoglobin 12.4 g/dL (12.0-16.0); Mean Corp Hgb Conc. 34.3 g/dL (33.0-37.0); Mean Corpuscular Hgb 29.5 pg (27.0-31.0); Mean Platelet Volume 9.7 fL (7.4-10.4); Platelet Count 153 10^3/uL (130-400); Red Cell Dist. Width 14.1 % (11.5-14.5); White Blood Cell Count 7.2 10^3/uL (4.8-10.8)
[2023-08-07] MEDS: ZOFRAN 4 MG IV (09:18)
[2023-08-07 09:27] LABS: Blood Urea Nitrogen 23 mg/dl (7-17); Calcium 9.4 mg/dl (8.4-10.2); Carbon Dioxide 31 mmol/L (22-30); Chloride 98 mmol/L (98-107); Estimated Creatinine Clearance 44 ml/min; Glucose 90 mg/dl (70-99); Potassium 3.8 mmol/L (3.5-5.1); Sodium 131 mmol/L (135-145); eGFR 44.91
[2023-08-07 09:35] LABS: NT-proBNP 2570 pg/ml
[2023-08-07 09:45] LABS: Osmolality Urine 350 mOsm/kg (300-900)
[2023-08-07 09:49] LABS: Urine Sodium 107 mmol/L (30-90)
--- NOTE | 2023-08-07 10:31 | PTCARENOTE ---
Addendum entered by Nerissa Rainey RN 08/07/23 11:36:
This RN communicated with respiratory therapist Sabra, made MD aware of patient's need for upgrade in level of care for continuous Bipap.
Original Note:
Patient AAOx3 but lethargic this AM, arouses to tactile stimuli/sternal rub for very brief periods of time; unable to stay awake for PO medication administration or breakfast but was able to briefly answer orientation questions correctly. on 4L NC,
sat 92-93%, breathing shallow with diminished lung sounds throughout. +3 B/L LE edema, legs warm and red, wrapped with knee high ARELIS wraps, wound care completed per order by assembler 1st shift RN. PRN zofran given for patient complaint of nausea. This RN
communicated with MD regarding patient's level of arousability and blood gas results, order for Bipap placed.
[2023-08-07] MEDS: APRESOLINE 10 MG IV (11:29)
--- NOTE | 2023-08-07 12:01 | W.PN.HOSP.TC ---
Today's Communication/Plan
-
Follow BP closely after IV hydralazine and if still an issue will start on IV nicardipine drip
Continue with IV Lasix
BiPAP support
Consult cardiology
Consult neurology
Consult ID
Assessment / Plan
Assessment / Plan
# Change in MS
Patient has been excessively sleepy/decreased responsiveness
On presentation there was a concern about hypertension urgency anemia and may be hypertensive encephalopathy. She was getting a as needed antihypertensives including her blood pressure medication. She was due to get an MRI to rule out any acute
FUR IRONER issues. Her CT of the head was negative.
She remains with decreased responsiveness. Her blood pressure readings was higher this morning. She just got her iv Hydralazine. Still concern for hypertensive encephalopathy.
Transferred to ICU for close blood pressure monitoring and initiation of IV antihypertensives continuous
Complete MRI when able.
Consult neurology.
# COVID positivity
She was -3 days before that on the day of admission and now she turned positive. She also came with fever and attributed to mild cellulitis. Unclear if she may have COVID to begin with. With current hypoxia and chest x-ray changes agree with
steroids. Consult ID for remdesivir. Check inflammatory markers
# Acute hypoxic respiratory insufficiency
-Compensated respiratory acidosis suspect secondary to decreased mentation. Not known to have primary underlying lung disease. BiPAP support till she is awake.
Chest x-ray shows concern for bilateral pulm edema. BNP is mildly elevated. EKG shows sinus rhythm
Chest CT on admission 3 days ago showed no pulmonary abnormalities.
Unclear if this is hypertensive related pulm edema.
Unclear if this is related to COVID-19 infection.
Continue with IV Lasix and COVID-19 therapeutics.
Consult cardiology.
# Change in personality -per patient's son , she has been having change in personality for a week before coming into the hospital. Doubt mild cellulitis doing it. I am more concerned about her hypertensive urgency picture on presentation and she
could as well have a hypertensive encephalopathy.
Consult psychiatry to rule out any major mood disorder.
# Hypertensive urgency on admission
-Patient 's son thinks that blood pressure was under control but when she landed in the hospital her blood pressure readings were high
-Patient on her home regimen now blood pressure controlled.
-CT of the head shows no acute intracranial findings.
-CW Prn hydralazine
# Fever/weakness/falls unclear etiology, possibly mild cellulitis in left leg; chronic lymphedema of lower extremities
-COVID-negative
-Influenza negative
-Urinalysis negative
-Neg blood cultures
- CT chest no pneumonia
-Cefazolin to cover cellulitis
-cw PT/OT
-cw Wound care for chronic lymphedema
# COVID positivity
She was -3 days before that on the day of admission and now she turned positive. She also came with fever and attributed to mild cellulitis. Unclear if she may have COVID to begin with. With current hypoxia and chest x-ray changes agree with
steroids. Consult ID for remdesivir. Check inflammatory markers
# Falls
CT chest showed no evidence of fractures. Pelvic CT shows no evidence of fractures. neg x-ray of the right femur
CW PT
# Hypercalcemia
Normalized now.Intermittenlty high but mild degree.
Phosphorus normal.
Vitamin D deficiency noted.
Based on this degree of elevation on admission rule out primary parathyroidism. She does have chronic kidney disease which could cause secondary hyperparathyroidism. Advised an endocrinology follow-up. Phosphorus is normal.
#Vitamin D deficiency-increase dose of vitamin D3
Chronic lymphedema/venous stasis
CKD 3B
-Renal function baseline
GERD
Hypercholesterolemia
-Continue statin
Insomnia
-Continue trazodone
Chronic ambulatory dysfunction
Anxiety/depression
-Continue Xanax
-Continue sertraline
Full code
DVT prophylaxis�heparin
Regular diet
Discussed with son on phone and updated the clinical changes and plan
MAHESH RN
Total time spent on today's encounter was 52 minutes which included time spent in counseling the patient/family regarding diagnosis and treatment plan as listed above, goals of care, and symptom management. Case was discussed with nursing staff,
specialists, and care coordinators/case management. All labs and imaging personally reviewed by me. Remainder the time spent in detailed review of previous records, lab data, imaging, and other medical provider documentation.
Anticipated Discharge: > 48 hours
Subjective/Interval History
-
Date of Service: August 07, 2023
Last night events noted.
Patient remains very sleepy. Arousable. She is able to tell me her name and drifts off into sleep. Very hard to hold a conversation because of her sleepiness. She was able to get up and take some of her meds to RN.
Objective Data
-
Labs:
Laboratory Results
08/07/23
09:00
WBC 7.2
Hgb 12.4
Hct 36.1 L
Plt Count 153
Sodium 131 L
Potassium 3.8
Chloride 98
Carbon Dioxide 31 H
BUN 23 H
Creatinine 1.2 H
Glucose 90
Calcium 9.4
Vital Signs:
Vital Signs
Temp Pulse Resp BP Pulse Ox
98.4 F 65 14 192/104 95
08/07/23 11:29 08/07/23 11:29 08/07/23 11:29 08/07/23 11:29 08/07/23 11:29
I&O
08/06/23 08/07/23 08/08/23
06:59 06:59 06:59
Intake Total 2320 / 2320 480 / 480
Output Total 3000 / 3000 250 / 250
Balance -680 / -680 230 / 230
Review of Systems
-
Unable to obtain full review of systems at this time due to: Other (Due to her mentation issues)
Physical Exam
-
General: No Apparent Distress
HEENT: Moist Mucous Membranes
Respiratory: Clear to Auscultation (On anterior auscultatoin ;difficult to exam due to body habitus); Negative Wheezes
Cardiac: Regular Rhythm and S1/S2
GI: Soft
Neuro: Negative Awake, Alert or Tremors
Psych: Calm
Data Reviewed
-
Diagnostic Radiology: Report Reviewed by me (cxr)
Labs: Labs Reviewed by me
[2023-08-07 13:50] LABS: Troponin I 0.018 ng/ml
--- NOTE | 2023-08-07 14:53 | CON.INTV ---
Consultation
Consultation Request
Date/Time Consultation Requested: 08/07/2023 - 1430
Date/Time Consultation Performed: 08/07/2023 - 1500
Requesting Provider: Dr. Gtz
Performing Provider: Dr. Alcaraz
Reason for Consultation: AMS; hypertensive crisis; SOB
Medical History
-
Chief Complaint: Falls
History of Present Illness:
82-year-old female with a past med history of hypertension, CKD and insomnia who presented from senior care with falls and vertigo. Patient diagnosed with hypertensive urgency on admission with cellulitis. She had a fever which normalized.
Family says that her change in mental status has been ongoing for about a week now. She initially was COVID antigen negative however on 08/06/2023 she was retested and is now positive. Due to patient's change in mental status with combativeness,
brain MRI was done earlier today which was a limited study demonstrating no focal or acute intracranial abnormalities. She was started on steroids due to her being positive for COVID and due to her having high blood pressure, she was transferred to
the ICU for closer monitoring with possible need for BiPAP +/- antihypertensive drip (i.e. Cardene). Car Rental Clerk service is consulted for additional management/recommendations.
PMHx: GERD, hypertension, hypercholesteremia, CKD 3B, lymphedema, stasis dermatitis, insomnia, obesity, chronic ambulatory dysfunction, insomnia
PSHx: Cholecystectomy, Orthopedic (Bilateral knee replacement, and lumbar laminectomy) and Tonsilectomy
Past Medical History
Past Medical History: Other (Above as per HPI)
Past Surgical History: Other (Above as per HPI)
Social History
Tobacco: Non-smoker
Alcohol: None
Drug: None
Family History
Family History: Reviewed & Not Pertinent
Allergies / Home Medications
Allergies
Allergy/AdvReac Type Severity Reaction Status Date / Time
shellfish derived Allergy Rash Verified 01/04/23 20:57
Home Medications
Medication Instructions Recorded Confirmed Last Taken Type
aspirin 81 mg chewable tablet 81 mg PO DAILY Blood clot 01/10/22 08/04/23 12/10/22 History
prevention/tx
diltiazem HCl 240 mg 240 mg PO DAILY HYPERTENSION 01/10/22 08/04/23 12/10/22 History
capsule,extended release 24 hr
rosuvastatin 20 mg tablet (Crestor) 20 mg PO DAILY High cholesterol 01/10/22 12/10/22 12/10/22 History
acetaminophen 325 mg tablet 650 mg PO Q6HPRN PRN FEVER 09/12/22 08/04/23 Unknown History
(Tylenol)
sertraline 100 mg tablet 100 mg PO QPM Depression 09/12/22 12/10/22 12/09/22 History
alprazolam 0.5 mg tablet 1 mg PO HSPRN PRN ANXIETY,SLEEP 12/10/22 08/04/23 Unknown History
calcium carbonate 500 mg calcium 1,000 mg PO DAILY PRN HEARTBURN 12/10/22 08/04/23 10/16/22 History
(1,250 mg) chewable tablet
cholecalciferol (vitamin D3) 25 50 mcg PO DAILY Supplement 12/10/22 08/03/23 12/10/22 History
mcg (1,000 unit) tablet
dextromethorphan-guaifenesin 10 5 ml PO Q6H PRN COUGH 12/10/22 08/04/23 Unknown History
mg-100 mg/5 mL oral liquid
magnesium hydroxide 400 mg/5 mL 30 ml PO DAILYPRN PRN CONSTIPATION 12/10/22 12/10/22 Unknown History
oral suspension (Milk of Magnesia)
menthol 10 mg lozenges 10 mg PO TIDPRN PRN SORE THROAT 12/10/22 12/10/22 Unknown History
metoprolol succinate 100 mg 100 mg PO DAILY@2000 Blood Pressure 12/10/22 08/03/23 12/09/22 History
tablet,extended release 24 hr
miconazole nitrate 2 % topical 1 applic topical BIDPRN PRN 12/10/22 08/03/23 Unknown History
powder GROIN,ABD FOLDS FOR RASH
ondansetron 4 mg disintegrating 4 mg PO Q6H PRN NAUSEA AND VOMITING 12/10/22 12/10/22 Unknown History
tablet
trazodone 50 mg tablet 25 mg PO HS INSOMNIA 12/10/22 12/10/22 12/09/22 History
zinc oxide 12 % topical cream 1 applic topical BID GROIN AND 12/10/22 08/04/23 12/10/22 History
(Michelle Protect (zinc oxide)) BUTTOCKS FOR REDNESS
furosemide 20 mg tablet (Lasix) 20 mg PO Q OTHER DAY Fluid 12/12/22 Unknown Rx
retention/Swelling #14 tabs
miconazole nitrate 2 % topical 1 applic topical BID Skin issues 12/12/22 Unknown Rx
powder (Miconazorb AF) #85 grams
lidocaine 5 % topical patch 1 patch topical DAILY low back 08/03/23 08/03/23 Unknown History
loperamide 2 mg tablet 2 mg PO DAILYPRN PRN diarrhea 08/03/23 08/03/23 Unknown History
psyllium 0.5 packet PO DAILYPRN PRN 08/03/23 08/03/23 Unknown History
constipation
benzocaine 6 mg-menthol 10 mg 1 randell mucous membrane TID PRN sore 08/04/23 08/04/23 Unknown History
lozenges (Chloraseptic Sore Throat) throat
dextromethorphan-guaifenesin 10 10 ml PO Q4H PRN cough 08/04/23 08/04/23 Unknown History
mg-100 mg/5 mL oral syrup
diltiazem HCl 240 mg 240 mg PO DAILY 08/05/23 08/05/23 Unknown History
capsule,extended release 24 hr
(Cardizem CD)
tramadol 50 mg tablet 50 mg PO BID PRN pain 08/05/23 08/05/23 Unknown History
Review of Systems
-
Unable to Obtain full review of systems at this time due to: Acuity
Vitals / Labs / Diagnostic Testing
Vital Signs
Temp Pulse Resp BP Pulse Ox
98.4 F 65 14 176/78 95
08/07/23 11:29 08/07/23 11:29 08/07/23 11:29 08/07/23 12:07 08/07/23 11:29
Lab Data
08/07/23 09:00
08/07/23 09:00
Laboratory Results
08/06/23
21:29
pH 7.36
pCO2 54 H
pO2 75 L
HCO3 30.5 H
O2 Delivery Level
Microbiology
08/03/23 20:40 Blood/Venous Blood Culture - Preliminary
No Growth in 72 hours- Final report to follow
08/03/23 20:40 Blood/Venous Blood Culture - Preliminary
No Growth in 72 hours- Final report to follow
Diagnostic Testing:
Physical Exam
-
HEENT: Normocephalic and Anicteric
Cardiovascular: S1/S2 and Peripheral Edema (neg)
Respiratory: Wheeze (negg), Rales, Rhonchi (neg) and Accessory Resp Muscle Use (mild)
GI: Soft, Non Distended and Normal Bowel Sounds
Neurology: Awake and Other (Agitated, screaming in the room)
Skin: Warm and Dry
General: Respiratory Distress (mild) and Comfortable
Assessment
-
Assessment: 82-year-old female with a past med history of hypertension, CKD and insomnia who presented from senior care with falls and vertigo. Patient diagnosed with hypertensive urgency on admission with cellulitis. She had a fever which
normalized. Family says that her change in mental status has been ongoing for about a week now. She initially was COVID antigen negative however on 08/06/2023 she was retested and is now positive. Due to patient's change in mental status with
combativeness, brain MRI was done earlier today which was a limited study demonstrating no focal or acute intracranial abnormalities. She was started on steroids due to her being positive for COVID and due to her having high blood pressure, she was
transferred to the ICU for closer monitoring with possible need for BiPAP +/- antihypertensive drip (i.e. Cardene). Car Rental Clerk service is consulted for additional management/recommendations.
Chronic conditions [employer]: GERD, hypertension, hypercholesteremia, CKD 3B, lymphedema, stasis dermatitis, insomnia, obesity, chronic ambulatory dysfunction, insomnia
Impression:
#AMS with acute agitation and combativeness - likely due to TME in setting of steroids, sepsis and hypoxia
#Acute pulmonary edema likely due to hypertensive crisis (pro-BNP 2570; last time checked was December 2022 and it was 1090 then)
#Hypertensive crisis
#COVID-19 positive
#Frequent falls
#Hyponatremia
#CKD
Plan:
- Control BP and reduce SBP by 25% over first 24 hours, with goal SBP 140-160mmHg. Then tomorrow we can reduce BP to goal <140/90
- Continue ancef; if she spikes a fever then would broaden to cefepime and IV vanco
- Start BiPAP if SOB not improved with supplemental O2
- Unclear if she truly needs treatment for covid as her CXR appears to be acute pulmonary edema in setting of HTN crisis ---> diurese for today and control BP as above, and continue steroids for now, and I will check CXR tomorrow. If hypoxia + CXR
improves then we can stop steroids; otherwise she will need decadron 6mg daily x 10 days
- Maintain SpO2 >90-94% with supplemental O2 as needed
- Maintain MAP >65
- Replete K>4, Mg>2, PO4>3
- Maintain euglycemia with goal BG 140�180
- DVT prophylaxis
Critical care statement (Patient seen and evaluated on 08/07/2023): A total of 40 minutes of critical care time was provided for this patient today. This includes management of unstable vital signs, evaluation of the patient at bedside, reviewing the
patient's pertinent medical records including radiographs, microbiology, laboratory evaluations, and discussion with primary team, consultants, pharmacy, nutrition, physical therapy, case management, charge nurse, critical care nursing, and
respiratory therapy.
Data:
Brain MRI 08-07-2023:
Limited study demonstrating no focal or acute intracranial abnormalities.
There is moderate cortical and cerebellar atrophy with moderate nonspecific white matter changes as described above.
CXR 08-06-2023: New findings concerning for mild pulmonary edema.
Mild cardiomegaly. Stable
--- NOTE | 2023-08-07 14:55 | CON.CAR ---
Consultation
Consultation Request
Date/Time Consultation Requested: 08/07/2023 13: 00
Date/Time Consultation Performed: 08/07/2023 13: 30
Requesting Provider: Ulisses
Performing Provider: David
Reason for Consultation: chf
Medical History
-
Chief Complaint: Weakness
History of Present Illness:
Guadalupe lives at [facility] living [place] [facility]. She has a history of type 2 diabetes, hypertension, GERD, CKD 3B, lymphedema. She presented with increasing weakness and falls. She was seen by EMS and was admitted with fever and
possible mild cellulitis. She had worsening and respiratory issues. She initially was COVID-negative but now is COVID-positive. She also has had CO2 retention and cardiology is consulted for acute diastolic CHF. Patient is unable give history of
present and is being transferred to ICU
Past Medical History
Past Medical History: GERD, HTN, Hypercholesterolemia, NIDDM and Other (Measles, mumps, anxiety/depression, arthritis, ambulatory dysfunction, indigestion, falls, peripheral edema, back pain, vertigo, CKD 3B, lymphedema, stasis dermatitis, insomnia,
and obesity)
Past Surgical History: Orthopedic (Left knee replacement surgery, right knee replacement surgery, lumbar laminectomy) and Tonsilectomy
Social History
Tobacco: Non-Smoker
Alcohol: None
Drug: None
Personal:
Living: Assisted Living
Employment: Retired
Family History
Family History: Other (Father at 89 and had arteriosclerosis, mother at 91 and had 'bad heart')
Allergies / Home Medications
Allergy/AdvReac Type Severity Reaction Status Date / Time
shellfish derived Allergy Rash Verified 01/04/23 20:57
Medication Instructions Recorded Confirmed Type
aspirin 81 mg chewable tablet 81 mg PO DAILY Blood clot 01/10/22 08/04/23 History
prevention/tx
diltiazem HCl 240 mg 240 mg PO DAILY HYPERTENSION 01/10/22 08/04/23 History
capsule,extended release 24 hr
rosuvastatin 20 mg tablet (Crestor) 20 mg PO DAILY High cholesterol 01/10/22 12/10/22 History
acetaminophen 325 mg tablet 650 mg PO Q6HPRN PRN FEVER 09/12/22 08/04/23 History
(Tylenol)
sertraline 100 mg tablet 100 mg PO QPM Depression 09/12/22 12/10/22 History
alprazolam 0.5 mg tablet 1 mg PO HSPRN PRN ANXIETY,SLEEP 12/10/22 08/04/23 History
calcium carbonate 500 mg calcium 1,000 mg PO DAILY PRN HEARTBURN 12/10/22 08/04/23 History
(1,250 mg) chewable tablet
cholecalciferol (vitamin D3) 25 50 mcg PO DAILY Supplement 12/10/22 08/03/23 History
mcg (1,000 unit) tablet
dextromethorphan-guaifenesin 10 5 ml PO Q6H PRN COUGH 12/10/22 08/04/23 History
mg-100 mg/5 mL oral liquid
magnesium hydroxide 400 mg/5 mL 30 ml PO DAILYPRN PRN CONSTIPATION 12/10/22 12/10/22 History
oral suspension (Milk of Magnesia)
menthol 10 mg lozenges 10 mg PO TIDPRN PRN SORE THROAT 12/10/22 12/10/22 History
metoprolol succinate 100 mg 100 mg PO DAILY@2000 Blood Pressure 12/10/22 08/03/23 History
tablet,extended release 24 hr
miconazole nitrate 2 % topical 1 applic topical BIDPRN PRN 12/10/22 08/03/23 History
powder GROIN,ABD FOLDS FOR RASH
ondansetron 4 mg disintegrating 4 mg PO Q6H PRN NAUSEA AND VOMITING 12/10/22 12/10/22 History
tablet
trazodone 50 mg tablet 25 mg PO HS INSOMNIA 12/10/22 12/10/22 History
zinc oxide 12 % topical cream 1 applic topical BID GROIN AND 12/10/22 08/04/23 History
(Michelle Protect (zinc oxide)) BUTTOCKS FOR REDNESS
furosemide 20 mg tablet (Lasix) 20 mg PO Q OTHER DAY Fluid 12/12/22 Rx
retention/Swelling #14 tabs
miconazole nitrate 2 % topical 1 applic topical BID Skin issues 12/12/22 Rx
powder (Miconazorb AF) #85 grams
lidocaine 5 % topical patch 1 patch topical DAILY low back 08/03/23 08/03/23 History
loperamide 2 mg tablet 2 mg PO DAILYPRN PRN diarrhea 08/03/23 08/03/23 History
psyllium 0.5 packet PO DAILYPRN PRN 08/03/23 08/03/23 History
constipation
benzocaine 6 mg-menthol 10 mg 1 randell mucous membrane TID PRN sore 08/04/23 08/04/23 History
lozenges (Chloraseptic Sore Throat) throat
dextromethorphan-guaifenesin 10 10 ml PO Q4H PRN cough 08/04/23 08/04/23 History
mg-100 mg/5 mL oral syrup
diltiazem HCl 240 mg 240 mg PO DAILY 08/05/23 08/05/23 History
capsule,extended release 24 hr
(Cardizem CD)
tramadol 50 mg tablet 50 mg PO BID PRN pain 08/05/23 08/05/23 History
Review of Systems
-
Unable to obtain full review of systems at this time due to: Patient Non Verbal
All other systems: Negative unless noted
Constitutional: Sleep Disturbance
EENT: No Symptoms
Respiratory: Trouble Breathing
Cardiac: No Symptoms
Abdomen/GI: No Symptoms
: No Symptoms
Musculoskeletal: Other (Frequent falls)
Skin: No Symptoms
Neurological: Weakness
Endocrine: No Symptoms
Hematologic/Lymphatic: No Symptoms
Physical Exam
Vital Signs
Temp Pulse Resp BP Pulse Ox
98.4 F 65 14 176/78 95
08/07/23 11:29 08/07/23 11:29 08/07/23 11:29 08/07/23 12:07 08/07/23 11:29
General: Lethargic and not easily arousable including to sternal rub
Neck: Supple, no JVD, HJR, carotids +2 B/L, no bruits bilaterally.
Heart: Non displaced PMI, RRR, no murmurs, No S3, S4, no rubs.
Lungs: Scattered rhonchi with poor effort.
Abdomen: Normal bowel sounds, soft, non-tender, non-distended.
Extremities: No clubbing, cyanosis or edema bilaterally.
Neuro: Lethargic and not easily arousable including to sternal rub
Lab Results
08/07/23 09:00
08/07/23 09:00
Troponin I 0.018 ng/ml 08/07/23 13:15
Mxa-Y-Icriphsbxbt Pept 2570 pg/ml 08/07/23 09:00
Impression / Plan
-
Impression:
Respiratory failure with CO2 retention
Acute diastolic chf
COVID-positive
Change in mental status possibly due to CO2 retention
History of hypertension with hypertensive urgency on admission
History of frequent falls
CKD 3B
GERD
Hypercalcemia
Anemia
Chronic amatory dysfunction
Vitamin D deficiency
Anxiety/depression
Hyponatremia
Echocardiogram 12/11/2022: Ejection fraction 60-65 %
Plan
Patient initially admitted with increasing weakness and falls. [place] to initially have cellulitis. She now has respiratory failure with CO2 retention and is COVID-positive with acute diastolic CHF.
Will treat with IV Lasix
Being transferred to ICU
Continue treatment of COVID
Eventual echocardiogram when out of isolate
Discussed with primary service
Critical care time 33 minutes so far
Data Reviewed
-
EKG: Tracing Personally Visualized and interpreted
Radiology: Report Reviewed by me
Medical Tests (Nuc Med, Echo etc): Report Reviewed by me
Labs: Labs Reviewed by me
Old Records: Reviewed
--- NOTE | 2023-08-07 15:01 | PTCARENOTE ---
Patient transported to MRI by this RN and tech, then transferred to ICU room 3363. Bedside report given to Marie NAQVI. Speech therapy consult placed at request of .
--- NOTE | 2023-08-07 16:29 | CON.NEURO4 ---
Consultation - Neurology 4
-
CONSULTING PHYSICIAN: Dharmesh
REFERRING PHYSICIAN: Ulisses
DICTATED BY: Dharmesh
DATE/TIME OF REQUEST: 08/07/23
DATE/TIME OF CONSULTATION: 08/07/23 at 3pm
Reason for Consultation: change in mental status
History of Present Illness:
82 year-old female with a history of GERD, htn, HLD, CKD, insomnia and chronic ambulatory dysfunction who is now COVID + who presented from [facility] with falls and vertigo. No LOC. She had hypertensive urgency on admission, mild cellulitis,
some hypercalcemia that has now normalized and as well as fever. Per son she has had a change in personality for at least one week. She was COVID negative on the date of admission and is now positive with respiratory failure with CO2 retention and
acute diastolic CHF. Has a history of depression and is on Zoloft, trazodone and Xanax prescribed by her PCP. She has been arguing with staff and refused exam by me.
All obtained from records:
Past Medical History: GERD, htn, HLD, CKD, lymphedema, stasis dermatitis, insomnia, obesity, chronic ambulatory dysfunction
Surgical History: cholecystectomy, bilateral knee replacement, lumbar laminectomy, tonsillectomy
Family History: reviewed noncontributory
Social History: nonsmoker, no ETOH or drug use, came in from [facility]
Allergies
shellfish derived Allergy (Verified 01/04/23 20:57)
Rash
Home Medications
Medication Instructions Recorded
aspirin 81 mg chewable tablet 81 mg PO DAILY Blood clot 01/10/22
prevention/tx
diltiazem HCl 240 mg 240 mg PO DAILY HYPERTENSION 01/10/22
capsule,extended release 24 hr
rosuvastatin 20 mg tablet (Crestor) 20 mg PO DAILY High cholesterol 01/10/22
acetaminophen 325 mg tablet 650 mg PO Q6HPRN PRN FEVER 09/12/22
(Tylenol)
sertraline 100 mg tablet 100 mg PO QPM Depression 09/12/22
alprazolam 0.5 mg tablet 1 mg PO HSPRN PRN ANXIETY,SLEEP 12/10/22
calcium carbonate 500 mg calcium 1,000 mg PO DAILY PRN HEARTBURN 12/10/22
(1,250 mg) chewable tablet
cholecalciferol (vitamin D3) 25 50 mcg PO DAILY Supplement 12/10/22
mcg (1,000 unit) tablet
dextromethorphan-guaifenesin 10 5 ml PO Q6H PRN COUGH 12/10/22
mg-100 mg/5 mL oral liquid
magnesium hydroxide 400 mg/5 mL 30 ml PO DAILYPRN PRN CONSTIPATION 12/10/22
oral suspension (Milk of Magnesia)
menthol 10 mg lozenges 10 mg PO TIDPRN PRN SORE THROAT 12/10/22
metoprolol succinate 100 mg 100 mg PO DAILY@2000 Blood Pressure 12/10/22
tablet,extended release 24 hr
miconazole nitrate 2 % topical 1 applic topical BIDPRN PRN 12/10/22
powder GROIN,ABD FOLDS FOR RASH
ondansetron 4 mg disintegrating 4 mg PO Q6H PRN NAUSEA AND VOMITING 12/10/22
tablet
trazodone 50 mg tablet 25 mg PO HS INSOMNIA 12/10/22
zinc oxide 12 % topical cream 1 applic topical BID GROIN AND 12/10/22
(Michelle Protect (zinc oxide)) BUTTOCKS FOR REDNESS
furosemide 20 mg tablet (Lasix) 20 mg PO Q OTHER DAY Fluid 12/12/22
retention/Swelling #14 tabs
miconazole nitrate 2 % topical 1 applic topical BID Skin issues 12/12/22
powder (Miconazorb AF) #85 grams
lidocaine 5 % topical patch 1 patch topical DAILY low back 08/03/23
loperamide 2 mg tablet 2 mg PO DAILYPRN PRN diarrhea 08/03/23
psyllium 0.5 packet PO DAILYPRN PRN 08/03/23
constipation
benzocaine 6 mg-menthol 10 mg 1 randell mucous membrane TID PRN sore 08/04/23
lozenges (Chloraseptic Sore Throat) throat
dextromethorphan-guaifenesin 10 10 ml PO Q4H PRN cough 08/04/23
mg-100 mg/5 mL oral syrup
diltiazem HCl 240 mg 240 mg PO DAILY 08/05/23
capsule,extended release 24 hr
(Cardizem CD)
tramadol 50 mg tablet 50 mg PO BID PRN pain 08/05/23
Review of Symptoms:
Per the HPI. I am unable to obtain a complete review of systems�because of patient refused to provide her own history.
Vital Signs
Temp Pulse Resp BP Pulse Ox
98.4 F 65 14 176/78 95
08/07/23 11:29 08/07/23 11:29 08/07/23 11:29 08/07/23 12:07 08/07/23 11:29
Lab Results
08/07/23 09:00
08/07/23 09:00
Sodium 131 mmol/L (135-145) L 08/07/23 09:00
Potassium 3.8 mmol/L (3.5-5.1) 08/07/23 09:00
BUN 23 mg/dl (7-17) H 08/07/23 09:00
Glucose 90 mg/dl (70-99) 08/07/23 09:00
Calcium 9.4 mg/dl (8.4-10.2) 08/07/23 09:00
Phosphorus 3.3 mg/dl (2.5-4.5) 08/05/23 06:19
Nml-Q-Ptdffptddpe Pept 2570 pg/ml 08/07/23 09:00
Physical Exam: Patient refused.
NIH Stroke Scale: Patient refused.
Neurologic Examination:
The patient was initially awake. She initially followed a basic command, lifting her arms out in front of her. She then became argumentative and refused the remainder of the exam. She was oriented to self--knew birthdate, location, name of the
president; stated about half of her address then appeared to fall asleep. Repeatedly shouted 'this is horrible' and perseverated on complaint of diffuse body pain. No spontaneous antigravity movement in BLE. No involuntary movement/seizure like
activity. No clear facial weakness, dysarthria or aphasia. Before I examined her she was observed to shout at nursing staff.
HCT:
'1. � No CT evidence for acute intracranial hemorrhage or scalp soft tissue hematoma.
2. � Mild to moderate diffuse cerebral and cerebellar volume loss.
3. � Moderate white matter leukoaraiosis in the frontal and parietal lobes.'
MRI brain pending
Impression:
LIZBET KEENE is a 82 year old F with intermittent somnolence and agitation. She is fully oriented. Evaluation was limited as she refused the exam. Her agitation and intermittent somnolence is likely multifactorial with potential
etiologies including acute hypoxic respiratory insufficiency with CO2 retention, COVID, and hypertensive urgency. She has already had an MRI brain--I do not see any clear stroke or structural abnormality as cause for her symptoms. Await official
radiology read. Given multiple possible etiologies for her symptoms, would hold off on any further testing from a neurological standpoint. Continue supportive care per primary team/ICU. Neurology will follow as needed. Please call with any
further questions. Discussed with Dr. Gtz and nursing staff in ICU.
Critical care time 35 mins
--- NOTE | 2023-08-07 16:29 | CON.ID ---
Consultation
-
Date/Time Consultation Requested: 08/07/2023 1256
Date/Time Consultation Performed: 08/07/2023 1600
Requesting Provider: Dr. Gtz
Performing Provider: Dr. Robles
Reason for Consultation: COVID-19
Chief Complaint / Past History
History of Present Illness
Guadalupe Sanchez is an 82-year-old female with a significant past medical history of morbid obesity, chronic ambulatory dysfunction and chronic kidney disease being evaluated at the request of Dr. Gtz in regards to COVID-19 antiviral management.
History is obtained from chart review along with patient interview, although patient was not found to be able to provide significant history to me.
The patient presented to [facility] on 08/03 from a local nursing facility secondary to generalized weakness and several falls. At the time of admission she had complained of pain in her upper legs and pelvic area. She admitted to having
chronic diarrhea over the past 6 months and had been using an antidiarrheal medication. At admission she was tested for COVID, and found to be negative. She was placed on empiric cefazolin for possible cellulitis.
Yesterday she was found to be somnolent for most of the day, and had ongoing temperatures and reported hypoxemia. COVID antigen testing was found to be positive. She has been started on Decadron. She additionally has had issues with HTN and is
being followed by cardiology. She has been started on a nicardipine drip.
History from the patient again is limited, although she denies current shortness of breath. She notes that she is quite thirsty. She admits to occasional cough. She denies sputum production. When asked about pain, she says she has some, but that
it is 'all over' and she cannot localize to any particular body area. She denies any dysuria.
Past History
Additional Past Medical History:
GERD
HTN
Dyslipidemia
CKD stage IIIb
Morbid obesity
Insomnia
Lymphedema
Stasis dermatitis
Chronic ambulatory dysfunction
Allergy History:
shellfish derived Allergy (Verified 01/04/23 20:57)
Rash
Medications Reviewed: Yes
Current Antibiotics:
Cefazolin
Social History
Tobacco: Non-Smoker
Alcohol: None
Drug: None
Employment: Not Employed
Review of Systems
Vital Signs
Temp Pulse Resp BP Pulse Ox
98.4 F 65 14 176/78 95
08/07/23 11:29 08/07/23 11:29 08/07/23 11:29 08/07/23 12:07 08/07/23 11:29
Physical Exam
Physical Exam
Constitutional: Chronically Ill, Non-toxic and Obese
Head: Normocephalic
Eyes: Pupils Equal, Pupils Round, No Conjunctival Hemorrhage and Sclera Anicteric
Oral: No Thrush and No Ulcers
Cardiovascular: S1/S2; Negative S3/S4
Pulmonary: Coarse and Non Labored; Negative Wheezes or Rales
Gastrointestinal: Soft, Non Tender, Non Distended, Normal Bowel Sounds, No Rebound and No Guarding
Genito-Urinary: Negative Nieto
Extremities: Edema, Erythema (Bilateral lower extremities; minimal) and Venous Insufficiency; Negative Cyanosis
Skin: Warm and Dry; Negative Rash or Jaundice
Neurological: Awake and Alert
Psychological: Agitated (Intermittent)
Lab / Diagnostic Study Results
08/07/23 09:00
08/07/23 09:00
Abs Immat Gran (auto) 0.1 10^3/uL (0-0.05) H 08/06/23 20:10
Absolute Neuts (auto) 6.7 10^3/uL (1.4-6.5) H 08/06/23 20:10
Absolute Lymphs (auto) 0.9 10^3/uL (1.2-3.4) L 08/06/23 20:10
Absolute Monos (auto) 1.0 10^3/uL (0.1-0.6) H 08/06/23 20:10
Absolute Basos (auto) 0.0 10^3/uL (0-0.2) 08/06/23 20:10
Immature Gran % 1.1 % (0-0.5) H 08/06/23 20:10
Neutrophils % 76.7 % (42.2-75.2) H 08/06/23 20:10
Lymphocytes % 10.3 % (20.5-51.1) L 08/06/23 20:10
Monocytes % 11.5 % (1.7-9.3) H 08/06/23 20:10
Eosinophils % 0.2 % (0-6) 08/06/23 20:10
Basophils % 0.2 % (0-2) 08/06/23 20:10
Lactic Acid 0.6 mmol/L (0.7-2.0) L 08/06/23 20:10
C-Reactive Protein 174.20 mg/L (0.0-10.00) H 08/07/23 09:00
Procalcitonin 0.12 ng/ml (0.0-0.25) 08/06/23 21:17
Microbiology Results
Micro:
08/03/23 20:40 Blood Culture - Preliminary
Blood/Venous No Growth in 72 hours- Final report to follow
08/03/23 20:40 Blood Culture - Preliminary
Blood/Venous No Growth in 72 hours- Final report to follow
08/03/23 20:40 Influenza Types A & B (FLORES) - Final
Nasal Swab Negative for Influenza A & B, NAAT
Negative results must be combined with clinical observations
and patient history.
Nucleic Acid Amplification test (NAAT)performed on the
[employer] NOW platform.
Imaging:
08/06/2023 CXR (portable): Lungs show prominence of the central vasculature concerning for mild pulmonary edema. Heart is mildly enlarged. No acute infiltrates noted, though.
Assessment / Plan
COVID-19 with minimal symptomatology
Prior lower extremity cellulitis
GERD
HTN
Dyslipidemia
CKD stage IIIb
Morbid obesity
Insomnia
Lymphedema
Stasis dermatitis
Chronic ambulatory dysfunction
Recommendations:
Nasal O2 was titrated down to 0, and patient maintained pulse ox at 94%.
At present, no indication to initiate remdesivir. With minimal symptomatology, other antivirals would be of limited utility.
Agree with initiation of dexamethasone.
Follow clinical picture. If patient decompensates, issue of antivirals can be revisited.
Given lower extremity exam, further Ancef can be discontinued.
[2023-08-07] MEDS: ANCEF IV (16:43)
[2023-08-07] MEDS: CRESTOR 20 MG PO (16:49)
[2023-08-07] MEDS: TOPROL XL 100 MG PO (19:38)
[2023-08-07 20:08] LABS: Troponin I 0.022 ng/ml
[2023-08-07] MEDS: DESYREL 100 MG PO (21:24)
[2023-08-08] VITALS (16 sets, daily range): BP systolic 138–205; BP diastolic 59–150; BMI 45.0
--- NOTE | 2023-08-08 02:15 | PTCARENOTE ---
08/07- received pt from dayshift RN, assessments completed and charted. while in room, patient called staff registered jeanne and we didnt know what we were doing. patient is very verbally abusive, as well as screaming out constantly and putting
call adrian on a dozen times in 10 minutes. patient screaming for water, it was explained that she is on fluid restriction and this patient continues to call staff stupid and evil.
patient complaining of not being able to sleep, i explained that she will get medicine at ten pm,
patient given water and ice as allotted per restriction, patient continues to put call light on and demand to be covered with blankets, after she is covered by tech, patient pulled off all blankets and said she was still cold.
patient pulling off her O2 sensor and bp cuff in order to get you in her room, patient also will roll herself over to active bed alarm to get you in room as well.
08/08 - patient called paper baling machine operator from her cell phone stating she was looking for her call light, patient was transfered to ED phone where she was yelling at them for her call light. ED called ICU to pass message along. when we arrived in her room
patient was screaming she did not have her call light and we reminded her it was on her belly. she called me a liar, and then i pulled her blankets back to reveal the call light on her belly.
patient still taking off her monitor equipment and demanding ice/water
no further needs at this time, will monitor for any acute changes in condition, call adrian with in reach at all times.
[2023-08-08 04:41] LABS: Hematocrit 40.5 % (37.0-47.0); Hemoglobin 13.6 g/dL (12.0-16.0); Mean Corp Hgb Conc. 33.6 g/dL (33.0-37.0); Mean Corpuscular Hgb 29.2 pg (27.0-31.0); Mean Corpuscular Volume 86.9 fL (81.0-99.0); Platelet Count 191 10^3/uL (130-400); Red Blood Cell Count 4.66 10^6/uL (4.20-5.40); Red Cell Dist. Width 13.6 % (11.5-14.5); White Blood Cell Count 7.7 10^3/uL (4.8-10.8)
[2023-08-08 05:09] LABS: Blood Urea Nitrogen 34 mg/dl (7-17); Calcium 10.2 mg/dl (8.4-10.2); Carbon Dioxide 28 mmol/L (22-30); Chloride 97 mmol/L (98-107); Estimated Creatinine Clearance 44 ml/min; Glucose 116 mg/dl (70-99); Potassium 3.6 mmol/L (3.5-5.1); Sodium 134 mmol/L (135-145); eGFR 44.91
[2023-08-08 05:15] LABS: Troponin I 0.021 ng/ml
--- NOTE | 2023-08-08 05:54 | PTCARENOTE ---
patient has ripped off all of her monitoring for the fifth time this shift, she pulls cords from monitor box, has broken all of her pulse ox monitor strips as well, and removed her oxygen tubing,
when i went to replace all of her monitoring equipment, patient was swinging at me, saying 'ew missy, your gross, you want to touch me' 'leave me alone' when i put her ekg pads and electrodes on she ripped them off while i was putting her blood
pressure cuff on,
informed TUNNEL FORM PLACING SUPERVISOR of her non compliance, patient o2 without oxygen is 84-88%, tried to inform patient of how important her oxygen and monitoring was, patient just mocked me and repeated my words back to me with sarcasm and then said 'your all missy, get
out and dont touch me.' will continue to spot check oxygen and blood pressure r/t her hypoxia and hypertension.
[2023-08-08] MEDS: LIDOCAINE 4% PATCH 1 PATCH TOPICAL (07:34)
[2023-08-08] MEDS: HEPARIN 5000 UNITS SC ×2 (07:37→22:08)
[2023-08-08] MEDS: DECADRON 6 MG IV (07:37)
[2023-08-08] MEDS: LASIX 40 MG IV (07:38)
[2023-08-08] MEDS: APRESOLINE 10 MG IV ×2 (07:38→22:09)
[2023-08-08] MEDS: LOW STRENGTH ASPIRIN 81 MG PO (07:49)
[2023-08-08] MEDS: ZOLOFT 100 MG PO (07:49)
[2023-08-08] MEDS: VITAMIN D3 (cholecalciferol) 2000 UNITS PO (07:49)
[2023-08-08] MEDS: ULTRAM 50 MG PO (07:49)
[2023-08-08] MEDS: CARDIZEM CD 240 MG PO (07:49)
--- NOTE | 2023-08-08 08:25 | W.PN.HOSP.TC ---
Today's Communication/Plan
-
See detailed plan as above
Assessment / Plan
Assessment / Plan
# Change in MS
Patient has been excessively sleepy/decreased responsiveness 08/07
On initial presentation there was a concern about hypertension urgency and may be hypertensive encephalopathy. She was getting a as needed antihypertensives including her blood pressure medication. Her CT of the head was negative.
MRI brain was limited study because of her motion. No obvious pathology noted though.
Today patient is awake and follows commands. She has ongoing behavioral issues. Her blood pressure was high this morning but got all her medication. Will continue to follow her blood pressure readings.
Unclear if this is more of a sleep cycle changes and behavioral issues than any neurological issues.
Continue to follow.
# COVID positivity
She was -3 days before that on the day of admission and now she turned positive. She also came with fever and attributed to mild cellulitis. Unclear if she may have COVID to begin with. With hypoxia and chest x-ray changes agree with steroids.
Consult ID for remdesivir. Increased inflammatory markers noted
Today she is not hypoxic.
Repeated chest x-ray to see if any improvement
# Acute hypoxic respiratory insufficiency
-Compensated respiratory acidosis suspect secondary to decreased mentation. Not known to have primary underlying lung disease.
Chest x-ray shows concern for bilateral pulm edema. BNP is mildly elevated. EKG shows sinus rhythm
Chest CT on admission 3 days ago showed no pulmonary abnormalities.
Unclear if this is hypertensive related pulm edema.
Unclear if this is related to COVID-19 infection.
Continue with IV Lasix and COVID-19 therapeutics.
appt cards in put
Resolved hypoxia
ECHO per cards
# Possible AMADO - clinically with body habitus and nocturnal hypoxemia and witnessed apnea high likely AMADO . OP sleep study. For now night time O2 rx.
# Change in personality -per patient's son , she has been having change in personality for a week before coming into the hospital. Doubt mild cellulitis doing it.
Consult psychiatry to rule out any major mood disorder.
# Hypertensive urgency on admission
-Patient 's son thinks that blood pressure was under control but when she landed in the hospital her blood pressure readings were high
- Son also gave me an impression that she tolerated high BP readings in past without any issues.
-Patient on her home regimen .
-CT of the head shows no acute intracranial findings.
-CW Prn hydralazine
- If recurrent need of hydralazine, start on regular hydralazine
# Fever/weakness/falls unclear etiology, possibly mild cellulitis in left leg; chronic lymphedema of lower extremities
-COVID-negative
-Influenza negative
-Urinalysis negative
-Neg blood cultures
- CT chest no pneumonia
-Cefazolin to cover cellulitis
-cw PT/OT
-cw Wound care for chronic lymphedema
# Falls
CT chest showed no evidence of fractures. Pelvic CT shows no evidence of fractures. neg x-ray of the right femur
CW PT
# Hypercalcemia
Normalized now.Intermittenlty high but mild degree.
Phosphorus normal.
Vitamin D deficiency noted.
Based on this degree of elevation on admission rule out primary parathyroidism. She does have chronic kidney disease which could cause secondary hyperparathyroidism. Advised an endocrinology follow-up. Phosphorus is normal.
#Vitamin D deficiency-increase dose of vitamin D3
Chronic lymphedema/venous stasis
CKD 3B
-Renal function baseline
GERD
Hypercholesterolemia
-Continue statin
Insomnia
-Continue trazodone
Chronic ambulatory dysfunction
Anxiety/depression
-Continue Xanax
-Continue sertraline
Full code
DVT prophylaxis�heparin
Regular diet
Discussed with son on phone and updated yesterday's events and todays plan
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
Total time spent on today's encounter was 52 minutes which included time spent in counseling the patient/family regarding diagnosis and treatment plan as listed above, goals of care, and symptom management. Case was discussed with nursing staff,
specialists, and care coordinators/case management. All labs and imaging personally reviewed by me. Remainder the time spent in detailed review of previous records, lab data, imaging, and other medical provider documentation.
Anticipated Discharge: > 48 hours
Subjective/Interval History
-
Date of Service: August 08, 2023
Patient with significant behavioral issues yesterday. She was not nice to the medical providers. She was abrasive and throwing things !
I was warned prior to entering her room.
She was receptive during my visit but mood was labile- crying a bit ,asking to speak to son.
' My nurse is so nice'
' Can i get some water'
' Where is phone my environmental law professor?'
Objective Data
-
Labs:
Laboratory Results
08/08/23
04:00
WBC 7.7
Hgb 13.6
Hct 40.5
Plt Count 191 D
Sodium 134 L
Potassium 3.6
Chloride 97 L
Carbon Dioxide 28
BUN 34 H
Creatinine 1.2 H
Glucose 116 H
Calcium 10.2
Vital Signs:
Vital Signs
Temp Pulse Resp BP Pulse Ox
98.2 F 61 18 191/74 95
08/08/23 04:00 08/08/23 05:30 08/08/23 05:30 08/08/23 05:00 08/08/23 05:30
I&O
08/07/23 08/08/23 08/09/23
06:59 06:59 06:59
Intake Total 480 / 480 480 / 480
Output Total 250 / 250 800 / 800
Balance 230 / 230 -320 / -320
Review of Systems
-
Constitutional: Denies Fever or Chills
EENT: Denies Sore Throat
Respiratory: Denies Cough or Trouble Breathing
Cardiac: Denies Chest Pain
Abdomen/GI: Denies Abdominal Pain, Nausea or Vomiting
Neuro: Denies Headache
Physical Exam
-
General: No Apparent Distress
HEENT: Moist Mucous Membranes
Respiratory: Clear to Auscultation (obese); Negative Rales or Crackles
Cardiac: Regular Rhythm, S1/S2 and Tachycardic
GI: Negative Soft
Neuro: Awake, Alert and AO x 3; Negative No Motor Deficits (moves all 4 limbs ) or Tremors
Psych: Calm and Anxious
Data Reviewed
-
MRI: Report Reviewed by me (brain)
Medical Tests (Nuc Med, Echo etc): Image personally visualized and interpreted
[2023-08-08] MEDS: ZINC OXIDE OINTMENT 1 APPLIC TOPICAL ×2 (09:00→22:08)
--- NOTE | 2023-08-08 09:28 | W.PN.INTV ---
Today's Communication / Plan
Recommendations
Control BP with goal <130/80
Re-check A1C
Replete K>4, Mg>2 while on lasix
Continue steroids for now, but considering CT chest from 08/03/2023 did not show any evidence of bilateral opacities, this acute hypoxia is almost certainly from acute pulmonary edema/HTN crisis, and not due to COVID-19.
Re-check CXR and if it appears improved and her O2 requirements remain stable, then would stop steroids.
Patient stable for downgrade out of ICU to telemetry. [facility] Feeder/pulmonary service will sign off. Please re-consult if respiratory issues deteriorate or if there are any additional questions or concerns.
Assessment
-
Assessment: 82-year-old female with a past med history of hypertension, CKD and insomnia who presented from [facility] with falls and vertigo. Patient diagnosed with hypertensive urgency on admission with cellulitis. She had a fever which
normalized. Family says that her change in mental status has been ongoing for about a week now. She initially was COVID antigen negative however on 08/06/2023 she was retested and is now positive. Due to patient's change in mental status with
combativeness, brain MRI was done earlier today which was a limited study demonstrating no focal or acute intracranial abnormalities. She was started on steroids due to her being positive for COVID and due to her having high blood pressure, she was
transferred to the ICU for closer monitoring with possible need for BiPAP +/- antihypertensive drip (i.e. Cardene). [facility] Feeder service is consulted for additional management/recommendations.
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
Impression:
#AMS with acute agitation and combativeness - likely due to TME in setting of steroids, sepsis and hypoxia - AMS now resolved
#Acute pulmonary edema likely due to hypertensive crisis (pro-BNP 2570; last time checked was December 2022 and it was 1090 then)
#Hypertensive crisis - resolved
#Lower extremity bilateral cellulitis in setting of chronic lymphedema and chronic venous stasis dermatitis
#Acute respiratory failure with hypoxemia - due to acute pulmonary edema ?in the setting of COVID-19
#COVID-19 positive
#Frequent falls
#Hyponatremia
#CKD
Plan:
- Control BP and reduce SBP by 25% over first 24 hours, with goal SBP 140-160mmHg. Today would reduce BP to goal <130/80 9last A1C was 6.5 in February 2023)
- Continue ancef; if she spikes a fever then would broaden to cefepime and IV vanco
- Unclear if she truly needs treatment for covid as her CXR appears to be acute pulmonary edema in setting of HTN crisis ---> diurese and control BP as above, and continue steroids for now, and I will check CXR today. If hypoxia + CXR improves then
we can stop steroids; otherwise she will need decadron 6mg daily x 10 days
- Maintain SpO2 >90-94% with supplemental O2 as needed
- Maintain MAP >65
- Replete K>4, Mg>2, PO4>3
- Maintain euglycemia with goal BG 140�180
- DVT prophylaxis
Dispo: Patient stable for downgrade out of ICU to telemetry. [facility] Feeder/pulmonary service will sign off. Please re-consult if respiratory issues deteriorate or if there are any additional questions or concerns. Thank you for allowing me to be
involved in the care of this patient.
Data:
Brain MRI 08-07-2023:
Limited study demonstrating no focal or acute intracranial abnormalities.
There is moderate cortical and cerebellar atrophy with moderate nonspecific white matter changes as described above.
CXR 08-06-2023: New findings concerning for mild pulmonary edema.
Mild cardiomegaly. Stable
Subjective Dataa
Subjective Data
Date of Service:
Date of Service: August 08, 2023
Chief Complaint: [facility] Follow Up
Subjective:
Seen this morning. She is much more calm and alert today. Answering my questions appropriately. I also met her son, he brought in her phone automation architect for her. He says that at baseline she is a normally functioning woman who does not have any
confusion or agitation. The patient does not have a memory of what happened yesterday. She currently denies chest pain, headache, fevers or chills.
Review of Systems
General: Other (12 point ROS performed and is negative unless mentioned above.)
Objective Data
Data Reviewed
Vital Signs / I&O / Oxygen:
Vital Signs
Temp Pulse Resp BP Pulse Ox
97.5 F 63 15 173/75 94
08/08/23 11:00 08/08/23 17:00 08/08/23 17:00 08/08/23 16:00 08/08/23 17:00
Intake and Output
08/07/23 08/08/23 08/09/23
06:59 06:59 06:59
Intake Total 480 / 480 480 / 480 840 / 840
Output Total 250 / 250 800 / 800 500 / 500
Balance 230 / 230 -320 / -320 340 / 340
SaO2 94
Nasal Cannula flow liters per 4
minute
Physical Exam
General: Comfortable and Chills (neg)
HEENT: Normocephalic and Anicteric
Cardiovascular: S1-S2, Murmur (CHAS heard best ar RUSB) and Peripheral Edema (+1 LE edema)
Respiratory: Clear (anteriorly), Wheeze (neg), Crackles (bibasilar rales heard posteriorly), Rhonchi (neg) and Non-Labored Respirations
GI: Soft, Non Distended, Non Tender and Normal Bowel Sounds
Neurology: Awake and Alert
Skin: Rash (Chronic venous stasis dermatitis bilaterally) and Other (lower extremities covered with bandages with small linear skin tears)
Labs/Micro/Reports
Lab Data
08/08/23 04:00
08/08/23 04:00
Microbiology
08/03/23 20:40 Blood/Venous Blood Culture - Preliminary
No Growth in 4 days- Final report to follow
08/03/23 20:40 Blood/Venous Blood Culture - Preliminary
No Growth in 4 days- Final report to follow
--- NOTE | 2023-08-08 10:00 | PTCARENOTE ---
Hydralazine given for htn with good effect.
[2023-08-08] MEDS: HYDROPHOR 1 APPLIC TOPICAL (11:00)
--- NOTE | 2023-08-08 12:00 | PTCARENOTE ---
Pt more pleasant today. Following commnads. Saying Please and thank you. Pt oriented x3. CHRISTIANSEN. Assisting with turning. Feeding self meals.
--- NOTE | 2023-08-08 14:03 | W.PN.CARDCBS ---
Today's Communication / Plan
-
Continue IV Lasix
Much improved likely due to treatment of CO2 retention
Continue treatment for COVID
Okay to be transferred out of ICU
Impression / Plan
-
Impression:
Respiratory failure with CO2 retention
Acute diastolic chf
COVID-positive
Cellulitis
Change in mental status possibly due to CO2 retention, improved
History of hypertension with hypertensive urgency on admission
History of frequent falls
CKD 3B
GERD
Hypercalcemia
Anemia
Chronic amatory dysfunction
Vitamin D deficiency
Anxiety/depression
Hyponatremia
Echocardiogram 12/11/2022: Ejection fraction 60-65 %
Plan
She is much improved
Mental status is much better likely due to treatment of CO2 retention
Difficult examination but will continue IV Lasix with stable creatinine of 1.2
Weights are likely inaccurate
Continue treatment of COVID
Eventual echocardiogram when out of isolation
Blood pressure is elevated and may need more antihypertensive agents
Discussed with nursing
Critical care time 31 minutes so far
Progress Note - Rivet Heater
Subjective
Date of Service: August 08, 2023
No complaints
Objective
Labs:
08/08/23 04:00
08/08/23 04:00
Labs
Hgb 13.6 g/dL (12.0-16.0) 08/08/23 04:00
Hct 40.5 % (37.0-47.0) 08/08/23 04:00
Plt Count 191 10^3/uL (130-400) D 08/08/23 04:00
Sodium 134 mmol/L (135-145) L 08/08/23 04:00
Potassium 3.6 mmol/L (3.5-5.1) 08/08/23 04:00
BUN 34 mg/dl (7-17) H 08/08/23 04:00
Creatinine 1.2 mg/dL (0.6-1.0) H 08/08/23 04:00
Glucose 116 mg/dl (70-99) H 08/08/23 04:00
Troponins
08/07/23 08/07/23 08/08/23
13:15 19:35 04:00
Troponin I 0.018 0.022 0.021
Vital Signs and I&O:
Vital Signs
Temp Pulse Resp BP Pulse Ox
97.5 F 67 21 169/65 92
08/08/23 11:00 08/08/23 11:00 08/08/23 11:00 08/08/23 11:00 08/08/23 11:00
Vital Signs
Temp Pulse Resp BP Pulse Ox
97.5 F 67 21 169/65 92
08/08/23 11:00 08/08/23 11:00 08/08/23 11:00 08/08/23 11:00 08/08/23 11:00
Intake & Output
08/06/23 08/07/23 08/08/23 08/09/23
06:59 06:59 06:59 06:59
Intake Total 2320 / 2320 480 / 480 480 / 480 360 / 360
Output Total 3000 / 3000 250 / 250 800 / 800 500 / 500
Balance -680 / -680 230 / 230 -320 / -320 -140 / -140
Physical Exam
Physical Exam
General: Well developed, well nourished in NAD.
Neck: Supple, no JVD, HJR, carotids +2 B/L, no bruits bilaterally.
Heart: Non displaced PMI, RRR, no murmurs, No S3, S4, no rubs.
Lungs: Scattered rhonchi
Extremities: No clubbing, cyanosis or edema bilaterally.
Neuro: Grossly nonfocal, awake, alert and oriented x3.
--- NOTE | 2023-08-08 16:00 | PTCARENOTE ---
No changes in assessment. Pt comfortable
[2023-08-08] MEDS: CRESTOR 20 MG PO (17:59)
[2023-08-08] MEDS: TOPROL XL 100 MG PO (22:08)
[2023-08-08] MEDS: DESYREL 100 MG PO (22:11)
[2023-08-09] VITALS (9 sets, daily range): BP systolic 129–161; BP diastolic 50–78; O2SAT 93; BMI 44.1
[2023-08-09 05:13] LABS: Hematocrit 40.1 % (37.0-47.0); Hemoglobin 13.4 g/dL (12.0-16.0); Mean Corp Hgb Conc. 33.4 g/dL (33.0-37.0); Mean Corpuscular Hgb 29.3 pg (27.0-31.0); Mean Corpuscular Volume 87.6 fL (81.0-99.0); Mean Platelet Volume 10.1 fL (7.4-10.4); Platelet Count 226 10^3/uL (130-400); Red Blood Cell Count 4.58 10^6/uL (4.20-5.40); Red Cell Dist. Width 13.8 % (11.5-14.5); White Blood Cell Count 12.9 10^3/uL (4.8-10.8)
[2023-08-09 05:43] LABS: Blood Urea Nitrogen 47 mg/dl (7-17); Calcium 9.9 mg/dl (8.4-10.2); Carbon Dioxide 31 mmol/L (22-30); Chloride 98 mmol/L (98-107); Estimated Creatinine Clearance 33 ml/min; Glucose 131 mg/dl (70-99); Phosphorus 3.4 mg/dl (2.5-4.5); Sodium 131 mmol/L (135-145); eGFR 34.36
[2023-08-09 05:46] LABS: NT-proBNP 1150 pg/ml
[2023-08-09] MEDS: CARDIZEM CD 240 MG PO (08:18)
[2023-08-09] MEDS: ZOLOFT 100 MG PO (08:18)
[2023-08-09] MEDS: VITAMIN D3 (cholecalciferol) 2000 UNITS PO (08:18)
[2023-08-09] MEDS: DECADRON 6 MG IV (08:18)
[2023-08-09] MEDS: LOW STRENGTH ASPIRIN 81 MG PO (08:18)
[2023-08-09] MEDS: LIDOCAINE 4% PATCH 1 PATCH TOPICAL (08:19)
[2023-08-09] MEDS: HEPARIN 5000 UNITS SC ×2 (08:19→20:31)
[2023-08-09] MEDS: LASIX 40 MG IV (08:19)
[2023-08-09] MEDS: HYDROPHOR 1 APPLIC TOPICAL (08:20)
--- NOTE | 2023-08-09 08:37 | W.PN.CARDCBS ---
Today's Communication / Plan
-
Cont IV diuresis
Eventual echo
Impression / Plan
-
.
Impression:
Respiratory failure with CO2 retention
Acute diastolic CHF
COVID-positive
Cellulitis
Change in mental status possibly due to CO2 retention, improved
History of hypertension with hypertensive urgency on admission
History of frequent falls
CKD 3B
GERD
Hypercalcemia
Anemia
Chronic amatory dysfunction
Vitamin D deficiency
Anxiety/depression
Hyponatremia
Echocardiogram 12/11/2022: Ejection fraction 60-65 %
Plan
Cont IV lasix 40 mg daily. BUN and cr rising to 1.5 but pt with hx of CRI with cr 1.3-1.5 throughout 2022.
Wt continues to come down. Monitor Is and Os
Consider eventual echo once out of isolation, however recent echo reviewed with preserved EF.
BP improved but has been labile. Cont metoprolol, Cardizem. May consider Hydralazine if bp remains difficult to control.
Cont tx of COVID and supportive care
Mental status is improved with treatment of CO2 retention
Discussed with nursing
Critical care time 30 min.
Progress Note - Mixing Engineer
Subjective
Date of Service: August 09, 2023
Pt seen and examined. No cp.
Objective
Labs:
08/09/23 04:15
08/09/23 04:15
Labs
Hgb 13.4 g/dL (12.0-16.0) 08/09/23 04:15
Hct 40.1 % (37.0-47.0) 08/09/23 04:15
Plt Count 226 10^3/uL (130-400) 08/09/23 04:15
Sodium 131 mmol/L (135-145) L 08/09/23 04:15
Potassium 4.0 mmol/L (3.5-5.1) 08/09/23 04:15
BUN 47 mg/dl (7-17) H 08/09/23 04:15
Creatinine 1.5 mg/dL (0.6-1.0) H 08/09/23 04:15
Glucose 131 mg/dl (70-99) H 08/09/23 04:15
Troponins
08/07/23 08/07/23 08/08/23
13:15 19:35 04:00
Troponin I 0.018 0.022 0.021
Vital Signs and I&O:
Vital Signs
Temp Pulse Resp BP Pulse Ox
96.7 F L 56 16 146/67 95
08/09/23 08:00 08/09/23 08:19 08/09/23 06:00 08/09/23 08:19 08/09/23 06:00
Vital Signs
Temp Pulse Resp BP Pulse Ox
96.7 F L 56 16 146/67 95
08/09/23 08:00 08/09/23 08:19 08/09/23 06:00 08/09/23 08:19 08/09/23 06:00
Intake & Output
08/07/23 08/08/23 08/09/23 08/10/23
06:59 06:59 06:59 06:59
Intake Total 480 / 480 480 / 480 1320 / 1320
Output Total 250 / 250 800 / 800 1100 / 1100
Balance 230 / 230 -320 / -320 220 / 220
Physical Exam
Physical Exam
General: No acute distress, AAOX3
Neck: Negative JVD
Heart: Regular, Negative S3 positive S1/S2, Negative S4, No murmur
Lungs: CTA b/l, negative wheezes/rales/rhonchi
Abd: Positive BS, NT/ND, neg rebound/rigidity/guarding
Ext: Negative cyanosis/clubbing. +1-2 b/edema with venous stasis skin changes.
Neuro: nonfocal
--- NOTE | 2023-08-09 08:47 | W.PN.HOSP.TC ---
Today's Communication/Plan
-
PT/OT
cont decadron for COVID--not on RemD that I can see
Assessment / Plan
Assessment / Plan
pt is an 82 year old female
Change in MS--Patient has been excessively sleepy/decreased responsiveness on 08/07--head CT neg,MRI brain essentially neg--concern was for possible HTN encephalopathy--She has ongoing behavioral issues?
COVID positivity--She was neg 3 days before that and on the day of admission and now she turned positive on 08/06/23-- She also came with fever and attributed to mild cellulitis--Unclear if she may have COVID to begin with
Acute hypoxic respiratory insufficiency--Compensated respiratory acidosis suspect secondary to decreased mentation. Not known to have primary underlying lung disease--Chest CT on admission showed no pulmonary abnormalities--Unclear if this is
hypertensive related pulm edema--Unclear if this is related to COVID-19 infection--Continue with IV Lasix and COVID-19 therapeutics--ECHO pending
Possible AMADO - clinically with body habitus and nocturnal hypoxemia and witnessed apnea high likely AMADO--OP sleep study. For now night time O2 rx.
Change in personality--per patient's son, she has been having change in personality for a week before coming into the hospital. Doubt mild cellulitis doing it--last psych note 08/06....
Hypertensive urgency on admission--Patient 's son thinks that blood pressure was under control but when she landed in the hospital her blood pressure readings were high--Son also gave me an impression that she tolerated high BP readings in past
without any issues--Patient on her home regimen--CT of the head shows no acute intracranial findings--prn hydralazine
Fever/weakness/falls unclear etiology, possibly mild cellulitis in left leg; chronic lymphedema of lower extremities--now COVID +, wound care
Falls--CT chest showed no evidence of fractures--Pelvic CT shows no evidence of fractures--neg x-ray of the right femur --PT/OT
Hypercalcemia--follow--Based on this degree of elevation on admission rule out primary hyperparathyroidism--She does have chronic kidney disease which could cause secondary hyperparathyroidism. Advised an endocrinology follow-up. Phosphorus is
normal.
Vitamin D deficiency-increase dose of vitamin D3
Chronic lymphedema/venous stasis
CKD 3B--Renal function baseline
GERD
Hypercholesterolemia--Continue statin
Insomnia--Continue trazodone
Chronic ambulatory dysfunction
Anxiety/depression--Continue Xanax--Continue sertraline
code status --Full code
DVT prophylaxis�heparin
Anticipated Discharge: > 48 hours
Subjective/Interval History
-
Date of Service: August 09, 2023
pt doing OK, no c/o
Objective Data
-
Labs:
Laboratory Results
08/09/23
04:15
WBC 12.9 H
Hgb 13.4
Hct 40.1
Plt Count 226
Sodium 131 L
Potassium 4.0
Chloride 98
Carbon Dioxide 31 H
BUN 47 H
Creatinine 1.5 H
Glucose 131 H
Calcium 9.9
Vital Signs:
max temp for 24 hours
08/08/23
19:36
Temp 98.3 F
Vital Signs
Temp Pulse Resp BP Pulse Ox
96.7 F L 56 16 146/67 95
08/09/23 08:00 08/09/23 08:19 08/09/23 06:00 08/09/23 08:19 08/09/23 06:00
I&O
08/08/23 08/09/23 08/10/23
06:59 06:59 06:59
Intake Total 480 / 480 1320 / 1320
Output Total 800 / 800 1100 / 1100
Balance -320 / -320 220 / 220
Review of Systems
-
All other systems: Reviewed and negative
Physical Exam
-
General: Well Developed, Well Nourished and No Apparent Distress
HEENT: Normocephalic and Atraumatic
Respiratory: Clear to Auscultation; Negative Wheezes or Rhonchi
Cardiac: Regular Rhythm, S1/S2 and Bradycardic; Negative Murmur
GI: Soft, Nontender, Nondistended and Normal Bowel Sounds
Musculoskeletal: No Clubbing, No Cyanosis and No Edema
Skin: Warm
Neuro: Awake and Alert
Psych: Calm
--- NOTE | 2023-08-09 08:55 | CM ---
Patient on quarantine restrictions, patient was independent prior to admission per prior CM discussion with patient son. CM called to [facility] and VM left requesting call back regarding prior level of functioning. Patient pending PT/OT
assessment. CM will continue to follow for discharge planning needs.
Plan; PT/OT assessment; SNF vs return to [facility] Personal care with VN
[2023-08-09] MEDS: ZINC OXIDE OINTMENT TOPICAL (09:12)
--- NOTE | 2023-08-09 09:52 | PTCARENOTE ---
Addendum entered by Magy Roca RN 08/09/23 11:20:
complete care given, patient dangled at bedside. 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 tiger text to hospitalist to update
Original Note:
report received, assessments per work list. patient alert and oriented, cooperative and pleasant. monitor sinus bradycardia. lungs with basilar crackles, diminished throughout. pulse oximeter 95 on 1 liter. 90 on room air, desaturation to 83 while
sleeping. oxygen reapplied. purewick in place, kevan urine. call adrian in reach. covid precautions maintained
[2023-08-09 09:54] LABS: Glycohemoglobin (HgbA1c) 6.6 % (4.0-5.6)
--- NOTE | 2023-08-09 10:43 | W.PN.ID1 ---
Date of Service
Date of Service: August 09, 2023
Today's Communication
Observe off antibiotics
Assessment / Plan
COVID-19 with minimal symptomatology
Prior lower extremity cellulitis
GERD
HTN
Dyslipidemia
CKD stage IIIb
Morbid obesity
Insomnia
Lymphedema
Stasis dermatitis
Chronic ambulatory dysfunction
Recommendations:
At rest, patient is maintaining a pulse ox of 94% on minimal O2. Nursing reports that when she falls asleep that the O2 dips.
At present, no indication to initiate remdesivir. With minimal symptomatology, other antivirals would be of limited utility.
Continue dexamethasone.
Follow clinical picture. If patient decompensates, issue of antivirals can be revisited.
Subjective / Review of Systems
Patient seen and examined. Offers no complaints at present.
Review of Systems: No Fever and No Chills
Vital Signs / Physical Exam
Vital Signs
Vital Signs
Temp Pulse Resp BP Pulse Ox
96.7 F L 53 13 146/67 89
08/09/23 08:00 08/09/23 09:00 08/09/23 09:00 08/09/23 08:19 08/09/23 09:00
Physical Exam
Constitutional: Comfortable and Non-toxic
Eyes: No Conjunctival Hemorrhage and Sclera Anicteric
Cardiovascular: S1/S2; Negative S3/S4
Pulmonary: Non Labored; Negative Wheezes or Rales
Gastrointestinal: Soft, Non Tender and Non Distended
Neurological: Awake and Alert
Psychological: Calm
Objective Data
Lab Data
Lab Results
08/09/23 04:15
08/09/23 04:15
Estimated Creat Clear 33 ml/min 08/09/23 04:15
Lactic Acid 0.6 mmol/L (0.7-2.0) L 08/06/23 20:10
Total Bilirubin 1.2 mg/dl (0.2-1.3) 08/04/23 06:21
AST 20 U/L (14-36) 08/04/23 06:21
ALT 12 U/L (0-35) 08/04/23 06:21
Alkaline Phosphatase 68 U/L (38-126) 08/04/23 06:21
C-Reactive Protein 59.40 mg/L (0.0-10.00) H 08/09/23 04:15
Most recent labs reviewed.
Micro Results:
08/03/23 20:40 Blood Culture - Final
Blood/Venous No Growth - Final Report
08/03/23 20:40 Blood Culture - Final
Blood/Venous No Growth - Final Report
08/03/23 20:40 Influenza Types A & B (FLORES) - Final
Nasal Swab Negative for Influenza A & B, NAAT
Negative results must be combined with clinical observations
and patient history.
Nucleic Acid Amplification test (NAAT)performed on the
[employer] platform.
Imaging:
08/06/2023 CXR (portable): Lungs show prominence of the central vasculature concerning for mild pulmonary edema. Heart is mildly enlarged. No acute infiltrates noted, though.
[2023-08-09] MEDS: ANTIVERT 12.5 MG PO (12:31)
[2023-08-09] MEDS: ULTRAM 50 MG PO (14:57)
--- NOTE | 2023-08-09 15:31 | PTCARENOTE ---
vertigo improved post antivert, c/o shoulder discomfort, medicated with ultram. PT/OT @bedside
[2023-08-09] MEDS: CRESTOR 20 MG PO (16:34)
[2023-08-09] MEDS: ZINC OXIDE OINTMENT 1 APPLIC TOPICAL (20:29)
[2023-08-09] MEDS: TOPROL XL 100 MG PO (20:30)
[2023-08-09] MEDS: DESYREL 100 MG PO (20:30)
[2023-08-10] VITALS (8 sets, daily range): BP systolic 134–175; BP diastolic 53–97; BMI 44.1; BMI 45.1
[2023-08-10 04:49] LABS: Hematocrit 39.1 % (37.0-47.0); Hemoglobin 13.1 g/dL (12.0-16.0); Mean Corp Hgb Conc. 33.5 g/dL (33.0-37.0); Mean Corpuscular Hgb 28.5 pg (27.0-31.0); Mean Corpuscular Volume 85.2 fL (81.0-99.0); Mean Platelet Volume 9.4 fL (7.4-10.4); Platelet Count 215 10^3/uL (130-400); Red Blood Cell Count 4.59 10^6/uL (4.20-5.40); Red Cell Dist. Width 13.7 % (11.5-14.5); White Blood Cell Count 13.8 10^3/uL (4.8-10.8)
[2023-08-10 05:21] LABS: ALT (SGPT) 11 U/L (0-35); AST (SGOT) 21 U/L (14-36); Albumin 2.7 g/dl (3.5-5.0); Alkaline Phosphatase 71 U/L (38-126); Blood Urea Nitrogen 55 mg/dl (7-17); Calcium 9.9 mg/dl (8.4-10.2); Carbon Dioxide 34 mmol/L (22-30); Chloride 96 mmol/L (98-107); Estimated Creatinine Clearance 33 ml/min; Glucose 127 mg/dl (70-99); Magnesium 1.9 mg/dl (1.6-2.3); Potassium 3.7 mmol/L (3.5-5.1); Sodium 135 mmol/L (135-145); Total Bilirubin 0.7 mg/dl (0.2-1.3); Total Protein 5.6 g/dl (6.3-8.2); eGFR 34.36
[2023-08-10] MEDS: ZOLOFT 100 MG PO (07:45)
[2023-08-10] MEDS: LOW STRENGTH ASPIRIN 81 MG PO (07:45)
[2023-08-10] MEDS: ANTIVERT 12.5 MG PO (07:46)
[2023-08-10] MEDS: LIDOCAINE 4% PATCH 1 PATCH TOPICAL (07:46)
[2023-08-10] MEDS: CARDIZEM CD 240 MG PO (07:46)
[2023-08-10] MEDS: DECADRON 6 MG IV (07:47)
[2023-08-10] MEDS: LASIX 40 MG IV (07:47)
[2023-08-10] MEDS: HEPARIN 5000 UNITS SC ×2 (07:47→20:19)
[2023-08-10] MEDS: ZINC OXIDE OINTMENT 1 APPLIC TOPICAL ×2 (07:48→20:21)
[2023-08-10] MEDS: HYDROPHOR 1 APPLIC TOPICAL (07:48)
[2023-08-10] MEDS: VITAMIN D3 (cholecalciferol) 50 MCG PO (07:55)
--- NOTE | 2023-08-10 08:35 | W.PN.CARDCBS ---
Today's Communication / Plan
-
Stop diltiazem given HFpEF
Increase metoprolol ER 200 mg twice daily
Add amlodipine 10 mg a day
Continue IV Lasix, convert to oral
Echo when out of isolation
Impression / Plan
-
.
Impression:
Respiratory failure with CO2 retention
Acute diastolic CHF
COVID-positive
Cellulitis
Change in mental status possibly due to CO2 retention, improved
History of hypertension with hypertensive urgency on admission
History of frequent falls
CKD 3B
GERD
Hypercalcemia
Anemia
Chronic amatory dysfunction
Vitamin D deficiency
Anxiety/depression
Hyponatremia
Echocardiogram 12/11/2022: Ejection fraction 60-65 %
Plan
It seems that patient is continuing to improve per report of nurses.
Creatinine is stable at 1.5. Continue IV Lasix. Weight was stable yesterday to today. Consider switch to oral furosemide in 24 to 48 hours.
Will repeat echocardiogram when patient comes out of isolation. She has been here for 1 week, and isolation to end soon.
Blood pressure remains elevated. She remains bradycardic. She is on diltiazem, which given HFpEF is not ideal. We will stop diltiazem, add amlodipine, and increase metoprolol ER. If blood pressure remains elevated may need hydralazine or other
second line agent. ARELIS/ARB could potentially be problematic given history of ALEX.
Progress Note - Senior Service Technician
Subjective
Date of Service: August 10, 2023:
Medications: Subcu heparin, lidocaine patch, aspirin 81 mg daily, metoprolol ER 100 mg daily, diltiazem ER 240 mg a day, rosuvastatin 20 mg daily, sertraline 100 mg daily, trazodone 100 mg daily, furosemide 40 mg IV daily
Outpatient meds furosemide 20 mg every other day
PMH/PSH/SH/FH: Reviewed
Allergies: None to medications, shellfish
ROS: Negative except as above
, intake and output -0.2 L, weight 109.2 kg, unchanged from yesterday, if accurate 122.9 kg on admission
White count 13.8, hemoglobin 13.1, platelets 215, BUN/creatinine 55 and 1.5, creatinine unchanged from yesterday, was 1.5 on admit, potassium 3.7, peak proBNP was 2570, troponin 0.021 ng/mL, CRP is 59,
chest x-ray yesterday infiltrate left base, possibly vascular congestion
Objective
Labs:
08/10/23 04:30
08/10/23 04:30
Labs
Hgb 13.1 g/dL (12.0-16.0) 08/10/23 04:30
Hct 39.1 % (37.0-47.0) 08/10/23 04:30
Plt Count 215 10^3/uL (130-400) 08/10/23 04:30
Sodium 135 mmol/L (135-145) 08/10/23 04:30
Potassium 3.7 mmol/L (3.5-5.1) 08/10/23 04:30
BUN 55 mg/dl (7-17) H 08/10/23 04:30
Creatinine 1.5 mg/dL (0.6-1.0) H 08/10/23 04:30
Glucose 127 mg/dl (70-99) H 08/10/23 04:30
Troponins
08/07/23 08/07/23 08/08/23
13:15 19:35 04:00
Troponin I 0.018 0.022 0.021
Vital Signs and I&O:
Vital Signs
Temp Pulse Resp BP Pulse Ox
36.2 C 56 13 95
08/10/23 07:45 08/10/23 07:47 08/10/23 06:00 08/10/23 07:47 08/10/23 07:45
Vital Signs
Temp Pulse Resp BP Pulse Ox
36.2 C 56 13 175/74 95
08/10/23 07:45 08/10/23 07:47 08/10/23 06:00 08/10/23 07:47 08/10/23 07:45
Intake & Output
08/08/23 08/09/23 08/10/23 08/11/23
07:59 07:59 07:59 07:59
Intake Total 480 / 480 1320 / 1560 1320 / 1320
Output Total 800 / 800 1100 / 1100 1250 / 1250
Balance -320 / -320 220 / 460 70 / 70
Physical Exam
Physical Exam
Patient not examined related to COVID isolation..
--- NOTE | 2023-08-10 09:39 | W.PN.HOSP.TC ---
Today's Communication/Plan
-
SNF referrals
OP endo followup
d/c planning
tele
Assessment / Plan
Assessment / Plan
pt is an 82 year old female
Change in MS--Patient has been excessively sleepy/decreased responsiveness on 08/07--head CT neg,MRI brain essentially neg--concern was for possible HTN encephalopathy--resolved
COVID positivity--She was neg 3 days before that and on the day of admission and now she turned positive on 08/06/23-- She also came with fever and attributed to mild cellulitis--Unclear if she may have COVID to begin with--not on any COVID specific
therapies
Acute hypoxic respiratory insufficiency--Compensated respiratory acidosis suspect secondary to decreased mentation. Not known to have primary underlying lung disease--Chest CT on admission showed no pulmonary abnormalities--Unclear if this is
hypertensive related pulm edema--Unclear if this is related to COVID-19 infection--Continue with IV Lasix and COVID-19 therapeutics--ECHO once pt out of isolation per cardiology
Possible AMADO - clinically with body habitus and nocturnal hypoxemia and witnessed apnea high likely AMADO--OP sleep study. For now night time O2
Change in personality--per patient's son, she has been having change in personality for a week before coming into the hospital. Doubt mild cellulitis doing it--last psych note 08/06....
Hypertensive urgency on admission--Patient 's son thinks that blood pressure was under control but when she landed in the hospital her blood pressure readings were high--Son also gave me an impression that she tolerated high BP readings in past
without any issues--Patient on her home regimen--CT of the head shows no acute intracranial findings--prn hydralazine
Fever/weakness/falls unclear etiology, possibly mild cellulitis in left leg; chronic lymphedema of lower extremities--now COVID +, wound care
Falls--CT chest showed no evidence of fractures--Pelvic CT shows no evidence of fractures--neg x-ray of the right femur --PT/OT
Hypercalcemia--follow--Based on this degree of elevation on admission rule out primary hyperparathyroidism, iPTH is significantly elevated, likely will need endocrine follow up as outpt--She does have chronic kidney disease which could cause
secondary hyperparathyroidism-- Phosphorus is normal.
Vitamin D deficiency-increase dose of vitamin D3
Chronic lymphedema/venous stasis
CKD 3B--Renal function baseline
GERD
Hypercholesterolemia--Continue statin
Insomnia--Continue trazodone
Chronic ambulatory dysfunction
Anxiety/depression--Continue Xanax--Continue sertraline
code status --Full code
DVT prophylaxis�heparin
Anticipated Discharge: 24 - 48 hours
Subjective/Interval History
-
Date of Service: August 10, 2023
pt without c/o--agrees to referrals to SNF ([facility], [facility], [facility])
Objective Data
-
Labs:
Laboratory Results
08/10/23
04:30
WBC 13.8 H
Hgb 13.1
Hct 39.1
Plt Count 215
Sodium 135
Potassium 3.7
Chloride 96 L
Carbon Dioxide 34 H
BUN 55 H
Creatinine 1.5 H
Glucose 127 H
Calcium 9.9
Total Bilirubin 0.7
AST 21
ALT 11
Alkaline Phosphatase 71
Vital Signs:
max temp for 24 hours
08/09/23
20:38
Temp 98.1 F
Vital Signs
Temp Pulse Resp BP Pulse Ox
97.2 F 56 13 175/74 94
08/10/23 07:45 08/10/23 07:47 08/10/23 06:00 08/10/23 07:47 08/10/23 08:30
I&O
08/09/23 08/10/23 08/11/23
06:59 06:59 06:59
Intake Total 1320 / 1320 1320 / 1320 240 / 240
Output Total 1100 / 1100 1250 / 1250
Balance 220 / 220 70 / 70 240 / 240
Review of Systems
-
All other systems: Reviewed and negative
Physical Exam
-
General: Well Developed, Well Nourished and No Apparent Distress
HEENT: Normocephalic, Atraumatic and Oxygen
Respiratory: Clear to Auscultation and Wheezes; Negative Rhonchi
GI: Other (not examined as tray table over her and she is eating breakfast)
Musculoskeletal: No Clubbing, No Cyanosis and No Edema
Neuro: Awake and Alert
--- NOTE | 2023-08-10 09:55 | CM ---
Addendum entered by Thelma Elam 08/10/23 16:51:
CM spoke with patient and updated her about accepting [facility].
Addendum entered by Thelma Elam 08/10/23 15:58:
[facility] accepted patient, left for patient son via phone.
Addendum entered by Thelma Elam 08/10/23 12:42:
[facility] declined, [facility] declined, [facility] has not responded but normally asks for 10 days post COVID + testing. [facility] is looking for available bed for tomorrow.
Addendum entered by Thelma Elam 08/10/23 10:02:
referrals sent via all scripts
Original Note:
Patient seen at bedside by physician, on quarentine precautions. Patient reqested referrals to [facility], [facility], [facility] and [facility]. CM will continue to follow for discharge planning needs.
Plan; SNF; pending bed availability
[2023-08-10] MEDS: ULTRAM 50 MG PO ×2 (09:56→22:37)
[2023-08-10] MEDS: NORVASC 10 MG PO (11:26)
[2023-08-10] MEDS: KCL 40 MEQ PO (11:26)
[2023-08-10] MEDS: DESENEX/MITRAZOL/ZEASORB 1 APPLIC TOPICAL ×2 (11:27→20:21)
--- NOTE | 2023-08-10 13:34 | W.PN.ID1 ---
Date of Service
Date of Service: August 10, 2023
Today's Communication
Sign off.
Assessment / Plan
COVID-19 with minimal symptomatology
Prior lower extremity cellulitis
Leukocytosis
- likely steroid effect.
GERD
HTN
Dyslipidemia
CKD stage IIIb
Morbid obesity
Insomnia
Lymphedema
Stasis dermatitis
Chronic ambulatory dysfunction
Recommendations:
At rest, patient is maintaining a pulse ox of 94% on RA. Nursing reports that when she falls asleep that the O2 dips.
At present, no indication for remdesivir. With minimal symptomatology, other antivirals would be of limited utility.
Continue dexamethasone and supportive care.
Little more to offer from an Infectious Diseases standpoint.
Will see again at your request.
����������������������������������������������������������
Chief Complaint
-: Other (Covid-19)
Subjective / Review of Systems
Patient seen and examined. O2 has been weaned. No fevers recorded in the chart.
Review of Systems: No Fever
Vital Signs / Physical Exam
Vital Signs
Vital Signs
Temp Pulse Resp BP Pulse Ox
97.8 F 52 14 134/68 93
08/10/23 11:55 08/10/23 12:00 08/10/23 12:00 08/10/23 12:00 08/10/23 12:00
Physical Exam
Constitutional: Comfortable, Chronically Ill, Non-toxic and Obese
Eyes: Sclera Anicteric
Pulmonary: Non Labored
Gastrointestinal: Non Distended
Extremities: Negative Edema, Cyanosis or Erythema
Neurological: Awake
Psychological: Calm
Objective Data
Lab Data
Lab Results
08/10/23 04:30
08/10/23 04:30
Estimated Creat Clear 33 ml/min 08/10/23 04:30
Lactic Acid 0.6 mmol/L (0.7-2.0) L 08/06/23 20:10
Total Bilirubin 0.7 mg/dl (0.2-1.3) 08/10/23 04:30
AST 21 U/L (14-36) 08/10/23 04:30
ALT 11 U/L (0-35) 08/10/23 04:30
Alkaline Phosphatase 71 U/L (38-126) 08/10/23 04:30
C-Reactive Protein 59.40 mg/L (0.0-10.00) H 08/09/23 04:15
Most recent labs reviewed.
Micro Results:
08/03/23 20:40 Blood Culture - Final
Blood/Venous No Growth - Final Report
08/03/23 20:40 Blood Culture - Final
Blood/Venous No Growth - Final Report
08/03/23 20:40 Influenza Types A & B (FLORES) - Final
Nasal Swab Negative for Influenza A & B, NAAT
Negative results must be combined with clinical observations
and patient history.
Nucleic Acid Amplification test (NAAT)performed on the
[employer] platform.
Imaging:
08/06/2023 CXR (portable): Lungs show prominence of the central vasculature concerning for mild pulmonary edema. Heart is mildly enlarged. No acute infiltrates noted, though.
[2023-08-10] MEDS: CRESTOR 20 MG PO (17:07)
--- NOTE | 2023-08-10 19:20 | PTCARENOTE ---
phone report called to oncoming RN on
[2023-08-10] MEDS: TOPROL XL 100 MG PO (20:22)
[2023-08-10] MEDS: DESYREL 100 MG PO (20:23)
--- NOTE | 2023-08-10 21:00 | PTCARENOTE ---
Pt received as transfer from ICU, VSS, NAD noted. Pt oriented to room, call adrian within reach. Medications given per SEP. pt placed on Telemetry per orders. SR-SB on monitor.
[2023-08-11] VITALS (9 sets, daily range): BP systolic 110–196; BP diastolic 57–93; PULSE 54; O2SAT 97; BMI 45.1
[2023-08-11 05:21] LABS: Hematocrit 41.6 % (37.0-47.0); Hemoglobin 13.9 g/dL (12.0-16.0); Mean Corp Hgb Conc. 33.4 g/dL (33.0-37.0); Mean Corpuscular Hgb 28.5 pg (27.0-31.0); Mean Corpuscular Volume 85.2 fL (81.0-99.0); Mean Platelet Volume 9.4 fL (7.4-10.4); Platelet Count 220 10^3/uL (130-400); Red Blood Cell Count 4.88 10^6/uL (4.20-5.40); Red Cell Dist. Width 13.5 % (11.5-14.5); White Blood Cell Count 15.3 10^3/uL (4.8-10.8)
[2023-08-11 06:04] LABS: ALT (SGPT) 15 U/L (0-35); AST (SGOT) 23 U/L (14-36); Albumin 2.9 g/dl (3.5-5.0); Alkaline Phosphatase 78 U/L (38-126); Blood Urea Nitrogen 57 mg/dl (7-17); Calcium 10.2 mg/dl (8.4-10.2); Carbon Dioxide 31 mmol/L (22-30); Chloride 96 mmol/L (98-107); Estimated Creatinine Clearance 36 ml/min; Glucose 185 mg/dl (70-99); Magnesium 1.9 mg/dl (1.6-2.3); Sodium 135 mmol/L (135-145); Total Bilirubin 0.8 mg/dl (0.2-1.3); Total Protein 5.9 g/dl (6.3-8.2); eGFR 37.33
[2023-08-11] MEDS: LASIX 40 MG IV ×2 (07:24→17:25)
[2023-08-11] MEDS: ZOLOFT 100 MG PO (07:24)
[2023-08-11] MEDS: LOW STRENGTH ASPIRIN 81 MG PO (07:24)
[2023-08-11] MEDS: DECADRON 6 MG IV (07:24)
[2023-08-11] MEDS: VITAMIN D3 (cholecalciferol) 50 MCG PO (07:24)
[2023-08-11] MEDS: LIDOCAINE 4% PATCH 1 PATCH TOPICAL (07:25)
[2023-08-11] MEDS: HEPARIN 5000 UNITS SC ×2 (07:25→21:00)
[2023-08-11] MEDS: NORVASC 10 MG PO (07:25)
[2023-08-11] MEDS: TOPROL XL 100 MG PO ×2 (07:26→21:00)
[2023-08-11] MEDS: ZINC OXIDE OINTMENT 1 APPLIC TOPICAL ×2 (07:32→21:00)
[2023-08-11] MEDS: DESENEX/MITRAZOL/ZEASORB 1 APPLIC TOPICAL ×2 (07:32→21:00)
[2023-08-11] MEDS: HYDROPHOR 1 APPLIC TOPICAL (07:41)
--- NOTE | 2023-08-11 09:13 | W.PN.CARDCBS ---
Today's Communication / Plan
-
Resume IV Lasix 40 mg IV twice daily
Continue Toprol and amlodipine for elevated blood pressure readings. Add Aldactone 12.5 mg daily
Follow creatinine and potassium
Eventual echocardiogram.
Impression / Plan
-
.
Impression:
Respiratory failure with CO2 retention
Acute diastolic CHF
COVID-positive
Cellulitis
Change in mental status possibly due to CO2 retention, improved
History of hypertension with hypertensive urgency on admission
History of frequent falls
CKD 3B
GERD
Hypercalcemia
Anemia
Chronic amatory dysfunction
Vitamin D deficiency
Anxiety/depression
Hyponatremia
Echocardiogram 12/11/2022: Ejection fraction 60-65 %
Plan
Shortness of breath remains multifactorial I suspect. Will resume Lasix 40 mg IV twice daily. Continue to follow creatinine. Creatinine is overall stable at 1.4.
Hopefully can check echo over the next 24 hours.
Blood pressure remains markedly elevated on Toprol and amlodipine. With renal insufficiency we will add low-dose Aldactone 12.5 mg daily. Continue to follow potassium and kidney function.
High likelihood of having obstructive sleep apnea. Needs outpatient sleep study.
Remains in isolation for COVID.
Progress Note - [employer] [employer] [facility]
Subjective
Date of Service: August 11, 2023
Has mild shortness of breath. Overall about the same.
Objective
Labs:
08/11/23 05:10
08/11/23 05:10
Labs
Hgb 13.9 g/dL (12.0-16.0) 08/11/23 05:10
Hct 41.6 % (37.0-47.0) 08/11/23 05:10
Plt Count 220 10^3/uL (130-400) 08/11/23 05:10
Sodium 135 mmol/L (135-145) 08/11/23 05:10
Potassium 4.0 mmol/L (3.5-5.1) 08/11/23 05:10
BUN 57 mg/dl (7-17) H 08/11/23 05:10
Creatinine 1.4 mg/dL (0.6-1.0) H 08/11/23 05:10
Glucose 185 mg/dl (70-99) H 08/11/23 05:10
Vital Signs and I&O:
Vital Signs
Temp Pulse Resp BP Pulse Ox
97.8 F 61 16 196/93 93
08/11/23 07:05 08/11/23 07:24 08/11/23 07:05 08/11/23 07:26 08/11/23 07:05
Vital Signs
Temp Pulse Resp BP Pulse Ox
97.8 F 61 16 196/93 93
08/11/23 07:05 08/11/23 07:24 08/11/23 07:05 08/11/23 07:26 08/11/23 07:05
Intake & Output
08/09/23 08/10/23 08/11/23 08/12/23
06:59 06:59 06:59 06:59
Intake Total 1320 / 1320 1320 / 1320 1560 / 1560
Output Total 1100 / 1100 1250 / 1250 1650 / 1650
Balance 220 / 220 70 / 70 -90 / -90
Physical Exam
Physical Exam
GEN: No distress, awake,
HEENT: supple, anicteric, mmm
LUNGS: dec BS at bases
CV: Reg, S1/S2, 1/6 syst LSB, no gallop
ABD: soft, BS+, NT/ND
EXT: +1 edema
NEURO: Gross non-focal
SKIN: No rash
--- NOTE | 2023-08-11 09:40 | CM ---
Addendum entered by Thelma Elam 08/11/23 10:12:
Plan; to transfer tomorrow, pending physician assessment [phone]/fax [phone]
Addendum entered by Thelma Elam 08/11/23 10:01:
Patient drowsy this am, complaining of not sleeping. Plan to hold for today, physicians to assess and plan for discharge again tomorrow. CM will review with Admissions at [facility].
Original Note:
CM spoke with patient son, Héctor who is currently in [place]. Patient son indicated that his siblings that patient was getting annoyed but he was comfortable with transition to SNF today if appropriate with physician.
--- NOTE | 2023-08-11 09:54 | W.PN.UPDATE ---
Update Note
Progress Note Update
patient seen chart reviewed. discussed w nursing. spoke to dr ansari. patient according to nsg has had periods where she is lethargic and others where she is not and can be rather demanding. when i saw her this am she was lethargic. i had a hard
time getting her to answer questions she was drifting off to sleep. she told me she was at [facility] and it was 2019. i did correct her and asked nursing to come in and tell me if this represented a change in mental status which they felt it
did . called dr ansari who came to see her. noted patient did have meclizine and trazodone 100 mg q hs and both of these are sedating with dr ansari's consent have d c'ed. patient also states she was up all night and has a hard time
sleeping. have added melatonin 3 mg. might consider swapping out zoloft for remeron which would help w sleep. she was to go to [facility] today but dr ansari has decided to hold her until the am. will see her in the morning.
--- NOTE | 2023-08-11 10:02 | W.PN.HOSP.TC ---
Today's Communication/Plan
-
check ABG
stop trazadone
hold d/c until tomorrow
Assessment / Plan
Assessment / Plan
pt is an 82 year old female
Change in MS--Patient has been excessively sleepy/decreased responsiveness on 08/07--head CT neg, MRI brain essentially neg--concern was for possible HTN encephalopathy--happened again today--checking ABG but suspect that her sleep wake cycle is off
(she admits to being anxious and up all night)--apprec psych, stop trazadone and meclizine
COVID positivity--She was neg 3 days before that and on the day of admission and now she turned positive on 08/06/23-- She also came with fever and attributed to mild cellulitis--Unclear if she may have COVID to begin with--not on any COVID specific
therapies
Acute hypoxic respiratory insufficiency--Compensated respiratory acidosis suspect secondary to decreased mentation. Not known to have primary underlying lung disease--Chest CT on admission showed no pulmonary abnormalities--Unclear if this is
hypertensive related pulm edema--Unclear if this is related to COVID-19 infection--Continue with IV Lasix and COVID-19 therapeutics--ECHO once pt out of isolation per cardiology
Possible AMADO - clinically with body habitus and nocturnal hypoxemia and witnessed apnea high likely AMADO--OP sleep study--For now night time O2
Change in personality--per patient's son, she has been having change in personality for a week before coming into the hospital. Doubt mild cellulitis doing it--last psych note 08/06....
Hypertensive urgency on admission--Patient 's son thinks that blood pressure was under control but when she landed in the hospital her blood pressure readings were high--Son also gave an impression that she tolerated high BP readings in past without
any issues--Patient on her home regimen--CT of the head shows no acute intracranial findings--prn hydralazine
Fever/weakness/falls unclear etiology, possibly mild cellulitis in left leg; chronic lymphedema of lower extremities--now COVID +, wound care
Falls--CT chest showed no evidence of fractures--Pelvic CT shows no evidence of fractures--neg x-ray of the right femur --PT/OT
Hypercalcemia--follow--Based on this degree of elevation on admission rule out primary hyperparathyroidism, iPTH is significantly elevated, likely will need endocrine follow up as outpt--She does have chronic kidney disease which could cause
secondary hyperparathyroidism-- Phosphorus is normal.
Vitamin D deficiency-increase dose of vitamin D3
Chronic lymphedema/venous stasis
CKD 3B--Renal function baseline
GERD
Hypercholesterolemia--Continue statin
Insomnia--Continue trazodone
Chronic ambulatory dysfunction
Anxiety/depression--Continue Xanax--Continue sertraline
code status --Full code
DVT prophylaxis�heparin
Anticipated Discharge: Within 24 hours
Subjective/Interval History
-
Date of Service: August 11, 2023
pt sleepy but arousable--told me she did not sleep overnight--says she is anxious at night
Objective Data
-
Labs:
Laboratory Results
08/11/23 08/11/23
05:10 10:01
WBC 15.3 H
Hgb 13.9
Hct 41.6
Plt Count 220
HCO3 Pending
Sodium 135
Potassium 4.0
Chloride 96 L
Carbon Dioxide 31 H
BUN 57 H
Creatinine 1.4 H
Glucose 185 H
Calcium 10.2
Total Bilirubin 0.8
AST 23
ALT 15
Alkaline Phosphatase 78
Vital Signs:
max temp for 24 hours
08/10/23
22:56
Temp 98.4 F
Vital Signs
Temp Pulse Resp BP Pulse Ox
97.8 F 61 16 196/93 93
08/11/23 07:05 08/11/23 07:24 08/11/23 07:05 08/11/23 07:26 08/11/23 07:05
I&O
08/10/23 08/11/23 08/12/23
06:59 06:59 06:59
Intake Total 1320 / 1320 1560 / 1560
Output Total 1250 / 1250 1650 / 1650
Balance 70 / 70 -90 / -90
Review of Systems
-
All other systems: Reviewed and negative
Physical Exam
-
General: Well Developed, Well Nourished and No Apparent Distress (sleepy)
HEENT: Normocephalic, Atraumatic and Oxygen
Respiratory: Decreased Breath Sounds
Cardiac: Regular Rhythm and S1/S2; Negative Murmur
GI: Soft, Nontender, Nondistended and Normal Bowel Sounds
Musculoskeletal: No Clubbing and No Cyanosis; Negative No Edema (chronic lymphedema with skin changes)
Neuro: Other (sleepy but arousable)
[2023-08-11 10:25] LABS: B.E. 9.6 mmol/L; HCO3 34.3 mmol/L (21-28); O2 Saturation % 99.5 % (94-98); PCO2 45 mmHg (32-35); PO2 156 mmHg (83-108); pH 7.49 (7.35-7.45)
[2023-08-11] MEDS: ALDACTONE 12.5 MG PO (11:54)
[2023-08-11] MEDS: APRESOLINE 10 MG IV (12:00)
[2023-08-11] MEDS: CRESTOR 20 MG PO (17:25)
--- NOTE | 2023-08-11 17:32 | PTCARENOTE ---
son at bedside [facility] [phone] said can call about discharge information since primary contact is currently in [place].
[2023-08-11] MEDS: MELATONIN 3 MG PO (21:11)
[2023-08-12 03:09] VITALS: BP 165/82
[2023-08-12 03:44] VITALS: BMI 44.4
[2023-08-12 05:22] LABS: Hematocrit 41.1 % (37.0-47.0); Hemoglobin 14.2 g/dL (12.0-16.0); Mean Corp Hgb Conc. 34.5 g/dL (33.0-37.0); Mean Corpuscular Hgb 29.2 pg (27.0-31.0); Mean Corpuscular Volume 84.6 fL (81.0-99.0); Mean Platelet Volume 9.7 fL (7.4-10.4); Platelet Count 239 10^3/uL (130-400); Red Blood Cell Count 4.86 10^6/uL (4.20-5.40); Red Cell Dist. Width 13.5 % (11.5-14.5); White Blood Cell Count 16.9 10^3/uL (4.8-10.8)
[2023-08-12 05:42] LABS: Blood Urea Nitrogen 60 mg/dl (7-17); Calcium 10.1 mg/dl (8.4-10.2); Carbon Dioxide 34 mmol/L (22-30); Chloride 97 mmol/L (98-107); Estimated Creatinine Clearance 33 ml/min; Glucose 141 mg/dl (70-99); Potassium 4.2 mmol/L (3.5-5.1); Sodium 132 mmol/L (135-145); eGFR 34.36
[2023-08-12 07:55] VITALS: BP 204/85
[2023-08-12] MEDS: TOPROL XL 100 MG PO ×2 (08:06→21:00)
[2023-08-12] MEDS: ALDACTONE 12.5 MG PO (08:07)
[2023-08-12] MEDS: LOW STRENGTH ASPIRIN 81 MG PO (08:07)
[2023-08-12] MEDS: VITAMIN D3 (cholecalciferol) 50 MCG PO (08:07)
[2023-08-12] MEDS: HEPARIN 5000 UNITS SC ×2 (08:08→21:00)
[2023-08-12] MEDS: DECADRON 6 MG IV (08:08)
[2023-08-12] MEDS: LASIX 40 MG IV ×2 (08:08→16:59)
[2023-08-12] MEDS: LIDOCAINE 4% PATCH 1 PATCH TOPICAL (08:08)
[2023-08-12] MEDS: NORVASC 10 MG PO (08:09)
--- NOTE | 2023-08-12 08:16 | CM ---
Addendum entered by Thelma Elam 08/12/23 10:19:
left with patient son, to review options and physician to update.
Original Note:
Patient son called CM and stated that the family was now refusing transfer to [facility]. CM reviewed options and patient son stated he was calling personal care to see if they would be able to take patient back to the facility. will update physician
and review options with patient son/POA.
[2023-08-12] MEDS: ZINC OXIDE OINTMENT 1 APPLIC TOPICAL ×2 (08:20→21:00)
[2023-08-12] MEDS: DESENEX/MITRAZOL/ZEASORB 1 APPLIC TOPICAL ×2 (08:20→21:00)
[2023-08-12] MEDS: HYDROPHOR 1 APPLIC TOPICAL (08:20)
[2023-08-12] MEDS: ZOLOFT 100 MG PO (08:23)
[2023-08-12 09:40] VITALS: BP 177/70
--- NOTE | 2023-08-12 10:17 | W.PN.UPDATE ---
Update Note
Progress Note Update
patient seen chart reviewed. spoke w nursing, dr ansari and ms christiano . the patient was irritated last eveing...called several family members resulting in bro appearing here at 1030 pm. nursing reports she does not sleep well at all. the patient
admitted her sleep is poor and was quite somnolent this am. we had been trying to avoid medication that might increase risk for falls but discussed w dr ansari trying to get her a few good nights of sleep monitoring for daytime sedation. will
try remeron 7.5 mg q hs and increase melatonin to 5 mg. patient had been accepted at [facility] but family now saying they do not want her to go there. this is being addressed by cm. will follow
--- NOTE | 2023-08-12 10:19 | W.PN.HOSP.TC ---
Today's Communication/Plan
-
adjusting sleep meds
d/c planning
tried to call son with CM--no answer
Assessment / Plan
Assessment / Plan
pt is an 82 year old female
Change in MS--Patient has been excessively sleepy/decreased responsiveness on 08/07--head CT neg, MRI brain essentially neg--concern was for possible HTN encephalopathy--happened again 08/11--checking ABG but suspect that her sleep wake cycle is off
(she admits to being anxious and up all night)--apprec psych, stop trazadone and meclizine--consideration for remeron and cont melatonin
COVID positivity--She was neg 3 days before that and on the day of admission and now she turned positive on 08/06/23 (day 6 of isolation)-- She also came with fever and attributed to mild cellulitis--Unclear if she may have COVID to begin with--not
on any COVID specific therapies
Acute hypoxic respiratory insufficiency--Compensated respiratory acidosis suspect secondary to decreased mentation. Not known to have primary underlying lung disease--Chest CT on admission showed no pulmonary abnormalities--Unclear if this is
hypertensive related pulm edema--Unclear if this is related to COVID-19 infection--Continue with IV Lasix and COVID-19 therapeutics--ECHO once pt out of isolation per cardiology
Possible AMADO - clinically with body habitus and nocturnal hypoxemia and witnessed apnea high likely AMADO--OP sleep study--For now night time O2
Change in personality--per patient's son, she has been having change in personality for a week before coming into the hospital. Doubt mild cellulitis doing it--last psych note 08/06....
Hypertensive urgency on admission--Patient 's son thinks that blood pressure was under control but when she landed in the hospital her blood pressure readings were high--Son also gave an impression that she tolerated high BP readings in past without
any issues--Patient on her home regimen--CT of the head shows no acute intracranial findings--prn hydralazine
Fever/weakness/falls unclear etiology, possibly mild cellulitis in left leg; chronic lymphedema of lower extremities--now COVID +, wound care
Falls--CT chest showed no evidence of fractures--Pelvic CT shows no evidence of fractures--neg x-ray of the right femur --PT/OT
Hypercalcemia--follow--Based on this degree of elevation on admission rule out primary hyperparathyroidism, iPTH is significantly elevated, likely will need endocrine follow up as outpt--She does have chronic kidney disease which could cause
secondary hyperparathyroidism-- Phosphorus is normal.
Vitamin D deficiency-increase dose of vitamin D3
Chronic lymphedema/venous stasis
CKD 3B--Renal function baseline
GERD
Hypercholesterolemia--Continue statin
Insomnia--Continue trazodone
Chronic ambulatory dysfunction
Anxiety/depression--Continue Xanax--Continue sertraline
code status --Full code
DVT prophylaxis�heparin
Anticipated Discharge: 24 - 48 hours
Subjective/Interval History
-
Date of Service: August 12, 2023
pt without c/o
Objective Data
-
Labs:
Laboratory Results
08/12/23
05:09
WBC 16.9 H
Hgb 14.2
Hct 41.1
Plt Count 239
Sodium 132 L
Potassium 4.2
Chloride 97 L
Carbon Dioxide 34 H
BUN 60 H
Creatinine 1.5 H
Glucose 141 H
Calcium 10.1
Vital Signs:
max temp for 24 hours
08/12/23
03:09
Temp 98.4 F
Vital Signs
Temp Pulse Resp BP Pulse Ox
97.5 F 57 18 177/70 93
08/12/23 07:55 08/12/23 08:06 08/12/23 07:55 08/12/23 09:40 08/12/23 10:00
I&O
08/11/23 08/12/23 08/13/23
06:59 06:59 06:59
Intake Total 1560 / 1560 780 / 780
Output Total 1650 / 1650 1550 / 1550
Balance -90 / -90 -770 / -770
Review of Systems
-
All other systems: Reviewed and negative
Physical Exam
-
General: Well Developed, Well Nourished and No Apparent Distress
HEENT: Normocephalic, Atraumatic and Oxygen
Respiratory: Clear to Auscultation; Negative Wheezes or Rhonchi
Cardiac: Regular Rhythm and S1/S2; Negative Murmur
GI: Soft, Nontender, Nondistended and Normal Bowel Sounds
Musculoskeletal: No Clubbing, No Cyanosis and No Edema
Neuro: Awake and Alert
--- NOTE | 2023-08-12 11:04 | W.PN.CARDCBS ---
Today's Communication / Plan
-
Tentative plan to transition from IV to oral Lasix tomorrow
Continue Aldactone
Monitor renal function and daily weights
Check echo when out of COVID isolation
Impression / Plan
-
Impression:
Respiratory failure with CO2 retention
Acute diastolic CHF
COVID-positive
Cellulitis
Change in mental status possibly due to CO2 retention, improved
History of hypertension with hypertensive urgency on admission
History of frequent falls
CKD 3B
GERD
Hypercalcemia
Anemia
Chronic amatory dysfunction
Vitamin D deficiency
Anxiety/depression
Hyponatremia
Echocardiogram 12/11/2022: Ejection fraction 60-65 %
Plan
Shortness of breath improved
Hypoxia still on 1L NC
Cont Lasix 40 mg IV twice daily today
Plan to transition to PO lasix 40mg tomorrow
Aldactone added
Blood pressure remains elevated, continue Toprol, amlodipine, Aldactone for now and monitor BP
High likelihood of having obstructive sleep apnea consider outpatient sleep study
Remains in isolation for COVID
Eventual echo when out of isolation, could be done as an outpatient if necessary
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
Subjective
Date of Service: August 12, 2023
NAOE. Resting comfortably on monitored floor. Tells me breathing is improved. Still on 1L NC.
Objective
Labs:
08/12/23 05:09
08/12/23 05:09
Labs
Hgb 14.2 g/dL (12.0-16.0) 08/12/23 05:09
Hct 41.1 % (37.0-47.0) 08/12/23 05:09
Plt Count 239 10^3/uL (130-400) 08/12/23 05:09
Sodium 132 mmol/L (135-145) L 08/12/23 05:09
Potassium 4.2 mmol/L (3.5-5.1) 08/12/23 05:09
BUN 60 mg/dl (7-17) H 08/12/23 05:09
Creatinine 1.5 mg/dL (0.6-1.0) H 08/12/23 05:09
Glucose 141 mg/dl (70-99) H 08/12/23 05:09
Vital Signs and I&O:
Vital Signs
Temp Pulse Resp BP Pulse Ox
97.5 F 57 18 177/70 93
08/12/23 07:55 08/12/23 08:06 08/12/23 07:55 08/12/23 09:40 08/12/23 10:00
Vital Signs
Temp Pulse Resp BP Pulse Ox
97.5 F 57 18 177/70 93
08/12/23 07:55 08/12/23 08:06 08/12/23 07:55 08/12/23 09:40 08/12/23 10:00
Intake & Output
08/10/23 08/11/23 08/12/23 08/13/23
06:59 06:59 06:59 06:59
Intake Total 1320 / 1320 1560 / 1560 780 / 780
Output Total 1250 / 1250 1650 / 1650 1550 / 1550
Balance 70 / 70 -90 / -90 -770 / -770
Physical Exam
Physical Exam
Gen: NAD, AA
HEENT: NC/AT, sclera anicteric
Neck: Difficult to assess JVD
CV: RRR, NL s1/s2
Lungs: No increased WOB on 1L NC
Abd: S/ND
Ext: Nonpitting LE edema
Skin: Warm, dry
Neuro: Non-focal
[2023-08-12] MEDS: APRESOLINE 10 MG IV (11:58)
--- NOTE | 2023-08-12 12:09 | PTCARENOTE ---
Addendum entered by Annalee Richardson RN 08/12/23 12:38:
follow up bp 155/69 HR 63
Original Note:
pt bp was 193/110 and 63 HR. prn hydralazine given for the systolic > 180. See mar for proper documentation.
[2023-08-12 12:38] VITALS: BP 155/69
[2023-08-12] MEDS: APRESOLINE 10 MG PO ×2 (16:59→21:06)
[2023-08-12] MEDS: CRESTOR 20 MG PO (17:00)
[2023-08-12 19:26] VITALS: BP 169/74
[2023-08-12] MEDS: REMERON 7.5 MG PO (21:05)
[2023-08-12] MEDS: MELATONIN 5 MG PO (21:05)
[2023-08-12 23:30] VITALS: BP 178/78
[2023-08-13 03:19] VITALS: BP 159/71
[2023-08-13 05:35] LABS: Hematocrit 43.5 % (37.0-47.0); Hemoglobin 15.2 g/dL (12.0-16.0); Mean Corp Hgb Conc. 34.9 g/dL (33.0-37.0); Mean Corpuscular Hgb 30.2 pg (27.0-31.0); Mean Corpuscular Volume 86.3 fL (81.0-99.0); Mean Platelet Volume 9.8 fL (7.4-10.4); Platelet Count 257 10^3/uL (130-400); Red Blood Cell Count 5.04 10^6/uL (4.20-5.40); Red Cell Dist. Width 13.5 % (11.5-14.5); White Blood Cell Count 17.1 10^3/uL (4.8-10.8)
[2023-08-13 05:40] VITALS: BMI 44.3
[2023-08-13 06:05] LABS: Blood Urea Nitrogen 65 mg/dl (7-17); Calcium 10.5 mg/dl (8.4-10.2); Carbon Dioxide 34 mmol/L (22-30); Chloride 91 mmol/L (98-107); Estimated Creatinine Clearance 33 ml/min; Glucose 155 mg/dl (70-99); Potassium 3.8 mmol/L (3.5-5.1); Sodium 134 mmol/L (135-145); eGFR 34.36
[2023-08-13 08:21] VITALS: BP 189/89
--- NOTE | 2023-08-13 08:56 | CM ---
Patient for transfer to SNF;[facility] [phone]/fax [phone]. Transfer documentation completed (paperwork) and provided to community outreach coordinator. CM spoke with Admissions at [facility] and she is aware. CM spoke with patient sharon Hoffman, email to
. Patient family aware of transfer and in agreement. CM will continue to follow for discharge planning needs.
Plan; transfer to SNF
[2023-08-13] MEDS: LOW STRENGTH ASPIRIN 81 MG PO (08:59)
[2023-08-13] MEDS: APRESOLINE 10 MG PO (08:59)
[2023-08-13] MEDS: VITAMIN D3 (cholecalciferol) 50 MCG PO (08:59)
[2023-08-13] MEDS: NORVASC 10 MG PO (08:59)
[2023-08-13] MEDS: ALDACTONE 12.5 MG PO (08:59)
[2023-08-13] MEDS: ZOLOFT 100 MG PO (08:59)
[2023-08-13] MEDS: LASIX 40 MG PO (09:00)
[2023-08-13] MEDS: TOPROL XL 100 MG PO (09:00)
[2023-08-13] MEDS: HEPARIN 5000 UNITS SC (09:00)
[2023-08-13] MEDS: HYDROPHOR 1 APPLIC TOPICAL (09:00)
[2023-08-13] MEDS: LIDOCAINE 4% PATCH 1 PATCH TOPICAL (09:01)
[2023-08-13] MEDS: DESENEX/MITRAZOL/ZEASORB 1 APPLIC TOPICAL (09:01)
[2023-08-13] MEDS: ZINC OXIDE OINTMENT 1 APPLIC TOPICAL (09:02)
--- NOTE | 2023-08-13 09:07 | W.PN.HOSP.TC ---
Today's Communication/Plan
-
d/c
Assessment / Plan
Assessment / Plan
pt is an 82 year old female
Change in MS--Patient has been excessively sleepy/decreased responsiveness on 08/07--head CT neg, MRI brain essentially neg--concern was for possible HTN encephalopathy--happened again 08/11--ABG OK but suspect that her sleep wake cycle is off (she
admits to being anxious and up all night)--apprec psych, stop trazadone and meclizine--continue for remeron and cont melatonin
COVID positivity--She was neg 3 days before that and on the day of admission and now she turned positive on 08/06/23 (day 6 of isolation)-- She also came with fever and attributed to mild cellulitis--Unclear if she may have COVID to begin with--not
on any COVID specific therapies
Acute hypoxic respiratory insufficiency--Compensated respiratory acidosis suspect secondary to decreased mentation. Not known to have primary underlying lung disease--Chest CT on admission showed no pulmonary abnormalities--Unclear if this is
hypertensive related pulm edema--Unclear if this is related to COVID-19 infection--Continue with IV Lasix and COVID-19 therapeutics--ECHO once pt out of isolation per cardiology, can do as outpt
Possible AMADO - clinically with body habitus and nocturnal hypoxemia and witnessed apnea high likely AMADO--OP sleep study--For now night time O2
Change in personality--per patient's son, she has been having change in personality for a week before coming into the hospital. Doubt mild cellulitis doing it--last psych note 08/06....
Hypertensive urgency on admission--Patient 's son thinks that blood pressure was under control but when she landed in the hospital her blood pressure readings were high--Son also gave an impression that she tolerated high BP readings in past without
any issues--Patient on her home regimen--CT of the head shows no acute intracranial findings--prn hydralazine
Fever/weakness/falls unclear etiology, possibly mild cellulitis in left leg; chronic lymphedema of lower extremities--now COVID +, wound care
Falls--CT chest showed no evidence of fractures--Pelvic CT shows no evidence of fractures--neg x-ray of the right femur --PT/OT
Hypercalcemia--follow--Based on this degree of elevation on admission rule out primary hyperparathyroidism, iPTH is significantly elevated, likely will need endocrine follow up as outpt--She does have chronic kidney disease which could cause
secondary hyperparathyroidism-- Phosphorus is normal.
Vitamin D deficiency-increase dose of vitamin D3
Chronic lymphedema/venous stasis
CKD 3B--Renal function baseline
GERD
Hypercholesterolemia--Continue statin
Insomnia--Continue trazodone
Chronic ambulatory dysfunction
Anxiety/depression--Continue Xanax--Continue sertraline
code status --Full code
DVT prophylaxis�heparin
Anticipated Discharge: Today
Subjective/Interval History
-
Date of Service: August 13, 2023
pt ready for d/c
says she didn't sleep
Objective Data
-
Labs:
Laboratory Results
08/13/23
05:03
WBC 17.1 H
Hgb 15.2
Hct 43.5
Plt Count 257
Sodium 134 L
Potassium 3.8
Chloride 91 L
Carbon Dioxide 34 H
BUN 65 H
Creatinine 1.5 H
Glucose 155 H
Calcium 10.5 H
Vital Signs:
max temp fo 24 hours
08/13/23
03:19
Temp 98.2 F
Vital Signs
Temp Pulse Resp BP Pulse Ox
97.9 F 57 18 189/89 93
08/13/23 08:21 08/13/23 08:21 08/13/23 08:21 08/13/23 08:21 08/13/23 08:21
I&O
0208/13/23 08/14/23
06:59 06:59 06:59
Intake Total 780 / 780 1140 / 1140
Output Total 1550 / 1550 600 / 600
Balance -770 / -770 540 / 540
Review of Systems
-
All other systems: Reviewed and negative
Physical Exam
-
General: Well Developed, Well Nourished and No Apparent Distress
HEENT: Normocephalic, Atraumatic and Oxygen
Respiratory: Clear to Auscultation; Negative Wheezes or Rhonchi
Cardiac: Regular Rhythm and S1/S2; Negative Murmur
GI: Soft, Nontender, Nondistended and Normal Bowel Sounds
Musculoskeletal: No Clubbing, No Cyanosis and No Edema
Neuro: Awake
Psych: Calm
--- NOTE | 2023-08-13 09:43 | PN.CDI ---
CDI
- -
CDI:
Physician Documentation Request
Admit Date: 08/03/23 23:29
Dear Doctor Francesca,
Clinical Indicators:
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
08/08 IS ordered.
08/11 CXR report, ' Bilateral small pleural effusions and adjacent atelectasis/consolidation, greater on the right.'
08/10 (09:20) RN note, 'Attempted on room air, but sats as low as 86%. Placed back on 2lnc and sats quickly improved. Pt encouraged to use IS but only to 500.'
Please indicate in your progress notes if you are in agreement that the above diagnosis is valid for this patient:
Atelectasis is a valid diagnosis (Please include it in your progress notes)
Atelectasis is not a valid diagnosis for this patient
Atelectasis is not yet confirmed but remains a suspected condition
Other, please specify
Unable to determine
Use of terms such as suspected, likely, concern for, or probable are acceptable for a diagnosis that is being evaluated, monitored or treated as if it exists and can be coded in the inpatient setting, when documented at the time of discharge.
Thank you,
KELSIE King RN
CDI Specialist
available via tiger text
Please use your independent medical judgment in providing your response.
--- NOTE | 2023-08-13 09:59 | W.PN.CARDCBS ---
Impression / Plan
-
Impression:
Presented 08/03/2023 with SOB, weakness
Respiratory failure with CO2 retention
Acute on chronic with heart failure with reduced ejection fraction
COVID-positive
Cellulitis
Change in mental status possibly due to CO2 retention, improved
History of hypertension with hypertensive urgency on admission
History of frequent falls
CKD 3B
GERD
Hypercalcemia
Anemia
Chronic amatory dysfunction
Vitamin D deficiency
Anxiety/depression
Hyponatremia
Echocardiogram 12/11/2022: Ejection fraction 60-65 %
Plan
Presented 08/03/2023 with SOB, weakness, COVID+
Shortness of breath improved
Intermittent Hypoxia still on 1L NC
Current weight is 241 lbs, creat 1.5. Transition to Lasix 40 mg daily 08/13/2023, this was prior outpt dosing
Aldactone added 08/11/2023, K+ 3.8
Blood pressure remains elevated, continue Toprol, amlodipine, Aldactone. Would consider increasing Aldactone to 25 mg daily if creat allows once back on oral lasix
High likelihood of having obstructive sleep apnea consider outpatient sleep study
Remains in isolation for COVID
Eventual echo when out of isolation, could be done as an outpatient if necessary
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
Subjective
Date of Service: August 13, 2023
Objective
Labs:
08/13/23 05:03
08/13/23 05:03
Labs
Hgb 15.2 g/dL (12.0-16.0) 08/13/23 05:03
Hct 43.5 % (37.0-47.0) 08/13/23 05:03
Plt Count 257 10^3/uL (130-400) 08/13/23 05:03
Sodium 134 mmol/L (135-145) L 08/13/23 05:03
Potassium 3.8 mmol/L (3.5-5.1) 08/13/23 05:03
BUN 65 mg/dl (7-17) H 08/13/23 05:03
Creatinine 1.5 mg/dL (0.6-1.0) H 08/13/23 05:03
Glucose 155 mg/dl (70-99) H 08/13/23 05:03
Vital Signs and I&O:
Vital Signs
Temp Pulse Resp BP Pulse Ox
97.9 F 57 18 189/89 93
08/13/23 08:21 08/13/23 08:21 08/13/23 08:21 08/13/23 08:21 08/13/23 08:21
Vital Signs
Temp Pulse Resp BP Pulse Ox
97.9 F 57 18 189/89 93
08/13/23 08:21 08/13/23 08:21 08/13/23 08:21 08/13/23 08:21 08/13/23 08:21
Intake & Output
08/11/23 08/12/23 08/13/23 08/14/23
06:59 06:59 06:59 06:59
Intake Total 1560 / 1560 780 / 780 1140 / 1140
Output Total 1650 / 1650 1550 / 1550 600 / 600
Balance -90 / -90 -770 / -770 540 / 540
--- NOTE | 2023-08-13 10:01 | W.PN.UPDATE ---
Update Note
Progress Note Update
patient not seen but chart was reviewed. she is being dc'ed today. reported she did not sleep last night. would suggest remeron could be increased to 15 mg if she continues to struggle to sleep but need to monitor for sedation dizziness etc. it is
possible sleep will improve when she is not in hospital environment. psych signing off
[2023-08-13 11:42] VITALS: BP 140/66
--- NOTE | 2023-08-13 12:26 | PTCARENOTE ---
Report given to Meggan (RN) from [facility]. IV and tele removed. Belongings from room taken with Pt. Acute Care transport came at 12:[address] [facility]. Son to meet her there.
--- NOTE | 2023-08-13 13:28 | W.DCSUMMARY ---
Discharge Summary
Discharge Data
Date of Admission: 08/03/23
Date of Discharge: 08/13/23
-
Pending Results: No
Hospital Course
Primary care physician : Renee Bruno
Principal Discharge diagnosis : Acute hypoxemic respiratory insufficiency along with excessive sleepiness and decreased responsiveness, COVID positivity, possible obstructive sleep apnea, hypertensive urgency on admission, fever/weakness/falls,
hypercalcemia which looks like primary hyperparathyroidism
Chronic Discharge diagnosis : Vitamin D deficiency, chronic lymphedema with venous stasis changes, chronic kidney disease stage IIIb, gastroesophageal reflux disease, hyperlipidemia, insomnia, chronic ambulatory dysfunction, anxiety/depression
Hospital Course : Patient was an 82-year-old female who presented with falls and weakness along with vertigo. She denied passing out. She complained of pain in her upper legs and pelvic area. She also was noted to have a fever. She stated she
was having diarrhea for the past 6 months prior to admission for which she was taking an antidiarrheal. She stated that her bilateral lower extremity lymphedema was stable. Patient was admitted.
Problem #1: Acute hypoxemic respiratory insufficiency along with excessive sleepiness and decreased responsiveness. Patient had episode of on 08/07/2023 and again on 08/11/2023. Head CT was negative. MRI of the brain was essentially negative.
Concern was for possible hypertensive encephalopathy as mentioned earlier. ABG was checked. Psychiatry did see the patient. This is suspected to be that her sleep-wake cycle is off. She admitted to being anxious and up all night. Family
confirms that she checks them all night long. Trazodone and meclizine were stopped. Remeron and melatonin were added to assist with sleep. These medications can be increased as needed to augment her sleep and to try to get her back to a proper
sleep-wake cycle.
Problem #2: COVID positivity. Patient was negative 3 days before admission but urine positive on 08/06/2023. On the day of discharge she was day 7 out of 10 of isolation. She was not on any specific COVID therapies.
Problem #3: Possible obstructive sleep apnea undiagnosed. Given the patient's body habitus and nocturnal hypoxemia along with witnessed apnea this is likely obstructive sleep apnea. Patient should have an outpatient sleep study and would likely
benefit from CPAP/BiPAP at night. For now she is continued on nighttime oxygen.
Problem #4: Hypertensive urgency. Patient CAT scan of the head showed no acute intracranial findings. Patient was continued on medications. Cardiology was consulted and medications were adjusted. IV Lasix was given as well. CAT scan of her
chest showed no pulmonary abnormalities. It is recommended that she have an echocardiogram once the patient finishes isolation for COVID. This can be done as an outpatient.
Problem #5: Fever/weakness/falls. Patient was seen in consultation by physical therapy and Occupational Therapy. Pelvis CAT scan showed no evidence of fractures. CT of the chest showed no evidence of fractures. Right femur x-ray was negative for
fracture. It is recommended that she [facility] prior to returning to her assisted living facility.
Problem for 6: Hypercalcemia which looks like new diagnosis of primary hyperparathyroidism. Patient's calcium was elevated. Intact parathyroid hormone was significantly elevated into the 180's. She does have chronic kidney disease. It is
recommended that she follow-up with endocrine as an outpatient to sort out the possibility of primary hyperparathyroidism as well as possible treatments for this.
Problem #7: All other medical issues. These include Vitamin D deficiency, chronic lymphedema with venous stasis changes, chronic kidney disease stage IIIb, gastroesophageal reflux disease, hyperlipidemia, insomnia, chronic ambulatory dysfunction,
anxiety/depression. These medical issues were stable during her hospitalization. Medications were continued as able.
Patient is stable for discharge to rehab at this time. If there are any questions regarding this dictation or her hospital stay, please not hesitate to call. Our office number is [phone].
Time for discharge 38 minutes.
Discharge Plan
-
Patient Disposition: Long Term/SNF
Discharge Diagnosis/Procedures: Hypertension encephalopathy�resolved, COVID positivity, acute hypoxemic respiratory insufficiency, likely obstructive sleep apnea, hypertensive urgency, falls, hypercalcemia, vitamin D deficiency, chronic lymphedema
and venous stasis, chronic kidney disease stage IIIb, gastroesophageal reflux disease, hyperlipidemia, insomnia, chronic ambulatory dysfunction, anxiety/depression
Condition: Good
Diet: As tolerated and Regular
Activity: As tolerated
Driving Restrictions: As prior to admission
Bathing Restrictions: None
Activity Restrictions/Additional Instructions:
Wound Care Instructions Bilateral LE- Clean with Vashe or soap and water daily. Apply Aquaphor and ARELIS wraps daily.
Resume use of lymphedema pumps as directed.
Patient will need an outpatient sleep study set up to evaluate for sleep apnea
Patient will need an endocrine follow-up for likely primary hyperparathyroidism
Patient will also need echocardiogram done once COVID isolation is finished
Referrals:
Renee Bruno DO [Family Provider] - in less than 1 week
Jose Manuel Tejeda MD [Consulting Staff] - in two weeks (or anyone in practice for hyperparathyroidism--hospital follow up)
Albert Hernandez MD [Active] - in one week (will also need outpt ECHO)
Kemal Bush MD [Active] - (call for appointment, needs sleep study)
Prescriptions:
New
furosemide 40 mg Tablet
40 mg PO DAILY Qty: 0 0RF
hydralazine 10 mg Tablet
10 mg PO TID Qty: 0 0RF
acetaminophen 325 mg Tablet
650 mg PO Q4HPRN PRN (Reason: mild pain/CHRISTENSEN/temp> 100.4F) Qty: 0 0RF
metoprolol succinate 100 mg Tablet Extended Release 24 Hr
100 mg PO BID Qty: 0 0RF
spironolactone 25 mg Tablet
12.5 mg PO DAILY Qty: 0 0RF
amlodipine 10 mg Tablet
10 mg PO DAILY Qty: 0 0RF
rosuvastatin 20 mg Tablet
20 mg PO QPM Qty: 0 0RF
mirtazapine 7.5 mg Tablet
7.5 mg PO HS Qty: 0 0RF
melatonin 5 mg Tablet
5 mg PO HS Qty: 0 0RF
white petrolatum [Hydrophor] 42 % Ointment
1 applic topical DAILY Qty: 0 0RF
Remove Patch [Remove Lidocaine Patch]
1 patch REMOVE DAILY@1999 Qty: 0 0RF
Continued
diltiazem HCl 240 mg Capsule,Extended Release 24hr
240 mg PO DAILY
aspirin 81 mg Tablet,Chewable
81 mg PO DAILY
rosuvastatin [Crestor] 20 mg Tablet
20 mg PO DAILY
sertraline 100 mg Tablet
100 mg PO QPM
miconazole nitrate 2 % Powder
1 applic TOPICAL BIDPRN PRN (Reason: GROIN,ABD FOLDS FOR RASH)
magnesium hydroxide [Milk of Magnesia] 400 mg/5 mL Suspension
30 ml PO DAILYPRN PRN (Reason: CONSTIPATION)
calcium carbonate 500 mg calcium (1,250 mg) Tablet,Chewable
1,000 mg PO DAILY PRN (Reason: HEARTBURN)
ondansetron 4 mg Tablet,Disintegrating
4 mg PO Q6H PRN (Reason: NAUSEA AND VOMITING)
cholecalciferol (vitamin D3) 25 mcg (1,000 unit) Tablet
50 mcg PO DAILY
Michelle Protect (zinc oxide) 12 % Cream
1 applic TOPICAL BID
psyllium Packet
0.5 packet PO DAILYPRN PRN (Reason: constipation)
loperamide 2 mg Tablet
2 mg PO DAILYPRN PRN (Reason: diarrhea)
lidocaine 5 % Adhesive Patch,Medicated
1 patch TOPICAL DAILY
tramadol 50 mg Tablet
50 mg PO BID PRN (Reason: pain)
Discontinued
acetaminophen [Tylenol] 325 mg Tablet
650 mg PO Q6HPRN PRN (Reason: FEVER)
trazodone 50 mg Tablet
25 mg PO HS
dextromethorphan-guaifenesin 10-100 mg/5 mL Liquid
5 ml PO Q6H PRN (Reason: COUGH)
metoprolol succinate 100 mg tablet extended release 24 hr
100 mg PO DAILY@1999
alprazolam 0.5 mg Tablet
1 mg PO HSPRN PRN (Reason: ANXIETY,SLEEP)
menthol 10 mg Lozenge
10 mg PO TIDPRN PRN (Reason: SORE THROAT)
miconazole nitrate [Miconazorb AF] 2 % Powder
1 applic topical BID Qty: 85 0RF
furosemide [Lasix] 20 mg tablet
20 mg PO Q OTHER DAY Qty: 14 0RF
dextromethorphan-guaifenesin [Guaifenesin DM] 10-100 mg/5 mL Syrup
10 ml PO Q4H PRN (Reason: cough)
Chloraseptic Sore Throat 6-10 mg Lozenge
1 randell MUCOUS MEMBRANE TID PRN (Reason: sore throat)
diltiazem HCl [Cardizem CD] 240 mg Capsule,Extended Release 24hr
240 mg PO DAILY
Discharge Orders:
Discharge Patient (As Directed); Ordered 08/13/23
Ordered By: Ondina Keenan
Discharge Date and Time
Discharge Date/Time: 08/13/23 12:23
== END 2023-08-13 12:23 | DRG 77 ==
LOC: 2 NORTH 23:29
PROVIDERS: Internal Medicine; Internal Medicine Critical Care Medicine; Nurse Practitioner Family; Nurse Practitioner Gerontology; ADMITTING PHYSICIAN Hospitalist; ATTENDING PHYSICIAN Internal Medicine; CONSULT PHYSICIAN Internal Medicine Cardiovascular Disease; CONSULT PHYSICIAN Internal Medicine Infectious Disease; CONSULT PHYSICIAN Psychiatry & Neurology Neurology; EMERGENCY PHYSICIAN Student in an Organized Health Care Education/Training Program; FAMILY PHYSICIAN Hospitalist; OTHER PHYSICIAN Psychiatry & Neurology Psychiatry
PROC: 5A09357 Assistance with Respiratory Ventilation, Less than 24 Consecutive Hours, Continuous Positive Airway Pressure (ICD-10-PCS; 2023-08-07)
DX: I67.4 Hypertensive encephalopathy (principal); I50.31 Acute diastolic (congestive) heart failure; U07.1 COVID-19; J81.0 Acute pulmonary edema; I13.0 Hypertensive heart and chronic kidney disease with heart failure and stage 1 through stage 4 chronic kidney disease, or unspecified chronic kidney disease; E87.1 Hypo-osmolality and hyponatremia; E87.29 Other acidosis; Z68.41 Body mass index [BMI] 40.0-44.9, adult; L03.116 Cellulitis of left lower limb; E21.0 Primary hyperparathyroidism; E78.00 Pure hypercholesterolemia, unspecified; N18.32 Chronic kidney disease, stage 3b; K21.9 Gastro-esophageal reflux disease without esophagitis; Z96.653 Presence of artificial knee joint, bilateral; R29.6 Repeated falls; I89.0 Lymphedema, not elsewhere classified; I87.2 Venous insufficiency (chronic) (peripheral); G47.00 Insomnia, unspecified; E66.01 Morbid (severe) obesity due to excess calories; E11.22 Type 2 diabetes mellitus with diabetic chronic kidney disease; I16.0 Hypertensive urgency; I87.8 Other specified disorders of veins; F32.A Depression, unspecified; F41.9 Anxiety disorder, unspecified; M19.90 Unspecified osteoarthritis, unspecified site; M54.9 Dorsalgia, unspecified; E55.9 Vitamin D deficiency, unspecified; R06.89 Other abnormalities of breathing; R09.02 Hypoxemia; D64.9 Anemia, unspecified; W19.XXXA Unspecified fall, initial encounter; G47.33 Obstructive sleep apnea (adult) (pediatric); S09.90XA Unspecified injury of head, initial encounter; Z11.52 Encounter for screening for COVID-19; Z79.82 Long term (current) use of aspirin; Z91.013 Allergy to seafood; Z82.49 Family history of ischemic heart disease and other diseases of the circulatory system; Z91.81 History of falling
CPT/HCPCS: 36600; 70450; 70551; 71045; 71250; 72192; 73552; 80048; 80053; 81003; 81015; 82306; 82728; 82805; 82962; 83036; 83605; 83735; 83880; 83935; 83970; 84100; 84145; 84300; 84484; 85025; 85027; 86140; 87040; 87502; 87811; 92526; 93005; 96360; 97163; 97166; 97530; 99285

== ENCOUNTER → 2023-09-02 10:00 | Outpatient (REF) | payer MEDICARE, OTHER, SELFPAY ==
[2023-09-02 10:22] LABS: % Basophils 0.9 % (0-2); % Eosinophils 4.5 % (0-6); % Immature Granulocytes 1.4 % (0-0.5); % Lymphocytes 27.1 % (20.5-51.1); % Monocytes 11.2 % (1.7-9.3); % Neutrophils 54.9 % (42.2-75.2); Absolute Basophils 0.1 10^3/uL (0-0.2); Absolute Eosinophils 0.3 10^3/uL (0-0.7); Absolute Immature Granulocytes 0.1 10^3/uL (0-0.05); Absolute Lymphocytes 1.9 10^3/uL (1.2-3.4); Absolute Monocytes 0.8 10^3/uL (0.1-0.6); Absolute Neutrophils 3.9 10^3/uL (1.4-6.5); Hematocrit 35.1 % (37.0-47.0); Mean Corp Hgb Conc. 34.2 g/dL (33.0-37.0); Mean Corpuscular Hgb 29.5 pg (27.0-31.0); Mean Corpuscular Volume 86.2 fL (81.0-99.0); Mean Platelet Volume 10.3 fL (7.4-10.4); Nucleated Red Blood Cells % 0 %; Platelet Count 167 10^3/uL (130-400); Red Blood Cell Count 4.07 10^6/uL (4.20-5.40); White Blood Cell Count 7.1 10^3/uL (4.8-10.8)
[2023-09-02 10:54] LABS: ALT (SGPT) 15 U/L (0-35); AST (SGOT) 22 U/L (14-36); Albumin 3.3 g/dl (3.5-5.0); Alkaline Phosphatase 84 U/L (38-126); Blood Urea Nitrogen 47 mg/dl (7-17); Calcium 10.4 mg/dl (8.4-10.2); Carbon Dioxide 26 mmol/L (22-30); Chloride 101 mmol/L (98-107); Glucose 107 mg/dl (70-99); Potassium 4.6 mmol/L (3.5-5.1); Sodium 133 mmol/L (135-145); Total Bilirubin 1.1 mg/dl (0.2-1.3); Total Protein 6.3 g/dl (6.3-8.2); eGFR 16.97
[2023-09-02 10:55] LABS: Vitamin D, 25-OH*** 30.9 ng/mL (30-80)
== END ==
LOC: OLABMERCHI 10:00
PROVIDERS: ATTENDING PHYSICIAN Nurse Practitioner Gerontology; FAMILY PHYSICIAN Hospitalist
DX: D64.9 Anemia, unspecified (principal); R94.4 Abnormal results of kidney function studies; N39.0 Urinary tract infection, site not specified; E55.9 Vitamin D deficiency, unspecified
CPT/HCPCS: 36415; 80053; 82306; 85025

== ENCOUNTER → 2023-09-09 10:31 | Outpatient (REF) | payer MEDICARE, OTHER, SELFPAY ==
[2023-09-09 12:25] LABS: % Basophils 0.7 % (0-2); % Eosinophils 2.3 % (0-6); % Immature Granulocytes 2.8 % (0-0.5); % Lymphocytes 23.9 % (20.5-51.1); % Monocytes 10.9 % (1.7-9.3); % Neutrophils 59.4 % (42.2-75.2); Absolute Basophils 0.1 10^3/uL (0-0.2); Absolute Eosinophils 0.2 10^3/uL (0-0.7); Absolute Immature Granulocytes 0.2 10^3/uL (0-0.05); Absolute Lymphocytes 1.9 10^3/uL (1.2-3.4); Absolute Monocytes 0.9 10^3/uL (0.1-0.6); Absolute Neutrophils 4.8 10^3/uL (1.4-6.5); Hematocrit 36.6 % (37.0-47.0); Hemoglobin 12.1 g/dL (12.0-16.0); Mean Corp Hgb Conc. 33.1 g/dL (33.0-37.0); Mean Corpuscular Hgb 29.4 pg (27.0-31.0); Mean Corpuscular Volume 89.1 fL (81.0-99.0); Mean Platelet Volume 11.1 fL (7.4-10.4); Nucleated Red Blood Cells % 0 %; Platelet Count 212 10^3/uL (130-400); Red Blood Cell Count 4.11 10^6/uL (4.20-5.40); Red Cell Dist. Width 14.2 % (11.5-14.5); White Blood Cell Count 8.1 10^3/uL (4.8-10.8)
[2023-09-09 12:39] LABS: ALT (SGPT) 14 U/L (0-35); AST (SGOT) 23 U/L (14-36); Albumin 3.6 g/dl (3.5-5.0); Alkaline Phosphatase 68 U/L (38-126); Blood Urea Nitrogen 37 mg/dl (7-17); Calcium 10.4 mg/dl (8.4-10.2); Carbon Dioxide 27 mmol/L (22-30); Chloride 104 mmol/L (98-107); Glucose 118 mg/dl (70-99); Potassium 4.4 mmol/L (3.5-5.1); Sodium 136 mmol/L (135-145); Total Bilirubin 0.9 mg/dl (0.2-1.3); Total Protein 6.6 g/dl (6.3-8.2); eGFR 20.57
== END ==
LOC: OLABMERCHI 10:31
PROVIDERS: ATTENDING PHYSICIAN Hospitalist
DX: R94.4 Abnormal results of kidney function studies (principal); D64.9 Anemia, unspecified
CPT/HCPCS: 36415; 80053; 85025

== ENCOUNTER → 2023-09-16 12:53 | Outpatient (REF) | payer MEDICARE, OTHER, SELFPAY ==
[2023-09-16 14:11] LABS: Blood Urea Nitrogen 42 mg/dl (7-17); Calcium 10.4 mg/dl (8.4-10.2); Carbon Dioxide 25 mmol/L (22-30); Chloride 107 mmol/L (98-107); Glucose 96 mg/dl (70-99); Potassium 4.3 mmol/L (3.5-5.1); Sodium 137 mmol/L (135-145); eGFR 24.18
== END ==
LOC: OLABMERCHI 12:53
PROVIDERS: ATTENDING PHYSICIAN Hospitalist
DX: R94.4 Abnormal results of kidney function studies (principal)
CPT/HCPCS: 36415; 80048

== ENCOUNTER → 2023-10-21 11:12 | Outpatient (REF) | payer MEDICARE, OTHER, SELFPAY ==
[2023-10-21 11:56] LABS: Blood Urea Nitrogen 35 mg/dl (7-17); Calcium 10.9 mg/dl (8.4-10.2); Carbon Dioxide 22 mmol/L (22-30); Chloride 106 mmol/L (98-107); Glucose 93 mg/dl (70-99); Potassium 4.7 mmol/L (3.5-5.1); Sodium 137 mmol/L (135-145); eGFR 29.39
== END ==
LOC: OLABMERCHI 11:12
PROVIDERS: ATTENDING PHYSICIAN Hospitalist
DX: R94.4 Abnormal results of kidney function studies (principal)
CPT/HCPCS: 36415; 80048

== ENCOUNTER 2023-11-08 21:08 | Inpatient (IN) | payer MEDICARE, OTHER, SELFPAY ==
[2023-11-08] VITALS (8 sets, daily range): BP systolic 148–170; BP diastolic 61–84; BMI 49.2; BMI 45.5
[2023-11-08 18:26] LABS: % Basophils 0.5 % (0-2); % Eosinophils 1.7 % (0-6); % Monocytes 9.7 % (1.7-9.3); % Neutrophils 68.1 % (42.2-75.2); Absolute Basophils 0.1 10^3/uL (0-0.2); Absolute Eosinophils 0.2 10^3/uL (0-0.7); Absolute Immature Granulocytes 0.1 10^3/uL (0-0.05); Absolute Neutrophils 7.1 10^3/uL (1.4-6.5); Hematocrit 36.9 % (37.0-47.0); Hemoglobin 12.3 g/dL (12.0-16.0); Mean Corp Hgb Conc. 33.3 g/dL (33.0-37.0); Mean Corpuscular Hgb 29.7 pg (27.0-31.0); Mean Corpuscular Volume 89.1 fL (81.0-99.0); Mean Platelet Volume 9.7 fL (7.4-10.4); Nucleated Red Blood Cells % 0 %; Platelet Count 206 10^3/uL (130-400); Red Blood Cell Count 4.14 10^6/uL (4.20-5.40); Red Cell Dist. Width 14.4 % (11.5-14.5); White Blood Cell Count 10.4 10^3/uL (4.8-10.8)
[2023-11-08 18:46] LABS: NT-proBNP 492 pg/ml
[2023-11-08 18:48] LABS: ALT (SGPT) 10 U/L (0-35); AST (SGOT) 21 U/L (14-36); Albumin 3.6 g/dl (3.5-5.0); Alkaline Phosphatase 78 U/L (38-126); Blood Urea Nitrogen 46 mg/dl (7-17); Carbon Dioxide 22 mmol/L (22-30); Chloride 107 mmol/L (98-107); Estimated Creatinine Clearance 33 ml/min; Glucose 127 mg/dl (70-99); Potassium 4.6 mmol/L (3.5-5.1); Sodium 136 mmol/L (135-145); Total Bilirubin 0.8 mg/dl (0.2-1.3); Total Protein 6.8 g/dl (6.3-8.2); eGFR 31.61
--- NOTE | 2023-11-08 19:39 | ED.GENMED ---
History of Present Illness
General
Chief Complaint: Swelling
Source: patient
Exam Limitations: none
Time Seen by Provider: 11/08/23 17:40
Travel History
Have you had any contact with someone who has COVID-19?: No
Do you have any symptoms of coronavirus? Fever > 100 degrees, chills, cough, shortness of breath, sore throat, loss of taste or smell, muscle aches, or headache?: No
History of Present Illness
History of Present Illness:
83-year-old female presents from assisted living facility with worsening lymphedema to both legs. They have been managing her lymphedema at the facility however recently her legs have increased in size now are draining and are foul in odor. No
reported fever. She is not a diabetic. She has a history of underlying baseline kidney disease. She has been on an oral antibiotic without any relief at the facility. This is progressed over the past week. No other complaints at this time
Past History
Past History
ED Past Medical History: GERD, HTN and Hypercholesterolemia
ED Past Surgical History: Cholecystectomy, Orthopedic (Bilateral knee replacement, and lumbar laminectomy) and Tonsilectomy
Social History
Tobacco: Non-smoker
Alcohol: None
Drug: None
Personal:
Living: assisted living
Employment: Retired
Family History
Family History: Other (Noncontributory)
Phy Exam
Physical Exam
Physical Exam:
General: Obese female no acute respiratory distress
HEENT: Normocephalic atraumatic
Heart: Regular rate and rhythm no murmurs
Lungs: Clear to auscultation bilaterally no wheezing
Extremities: Significant edema bilateral lower extremities no cyanosis
Skin: Erythematous skin with open wounds to both lower extremities that is foul in odor.
Scores
Heart Failure Risk
Heart Failure Risk Score: Not Applicable
Course
Orders/Labs/Results
Orders:
Orders
11/08/23 18:20
Complete Blood Count/With Diff Urgent
Comprehensive Metabolic Panel Urgent
NT-proBNP Urgent
Blood Culture Q30M
FERMIN Source: Blood/Venous
Specimen Description:
11/08/23 18:46
Blood Culture Q30M
FERMIN Source: Blood/Venous
Specimen Description:
11/08/23 19:34
Furosemide [Lasix] 40 mg IV NOW STA
Vancomycin [Vancocin] 2,000 mg 0.9% Sodium Chloride 500 ml [Nss] 500 ml IV NOW
11/08/23 19:35
Wound Culture [Wound/Abscess/Other Culture] Urgent
FERMIN Source: Leg
Specimen Description: Left
Abnormal Lab Results
11/08/23
18:20
RBC 4.14 L 10^6/uL
(4.20-5.40)
Hct 36.9 L %
(37.0-47.0)
Abs Immat Gran (auto) 0.1 H 10^3/uL
(0-0.05)
Absolute Neuts (auto) 7.1 H 10^3/uL
(1.4-6.5)
Absolute Monos (auto) 1.0 H 10^3/uL
(0.1-0.6)
Immature Gran % 1.0 H %
(0-0.5)
Lymphocytes % 19.0 L %
(20.5-51.1)
Monocytes % 9.7 H %
(1.7-9.3)
BUN 46 H mg/dl
(7-17)
Creatinine 1.6 H mg/dL
(0.6-1.0)
Glucose 127 H mg/dl
(70-99)
Calcium 11.0 H mg/dl
(8.4-10.2)
11/08/23 18:20
11/08/23 18:20
Vital Signs
Initial and Last Documented VS:
Initial Vital Signs
Temp Pulse Resp BP Pulse Ox
98.7 F 63 18 164/76 97
11/08/23 14:07 11/08/23 14:07 11/08/23 14:07 11/08/23 14:07 11/08/23 14:07
Last Documented Vital Signs
Temp Pulse Resp BP Pulse Ox
98.6 F 90 22 166/75 97
11/08/23 19:00 11/08/23 19:00 11/08/23 19:00 11/08/23 19:00 11/08/23 19:00
MDM/Problems Addressed
Differential Diagnosis Includes:
Acute on chronic lymphedema question possible overlying cellulitis. Question heart failure with increased fluid. Check BMP and labs.
*Critical Care Note
Total Time (30-74mins, 75-104mins- exclusive of procedures): Not Applicable
Update Note
Update Note:
Reviewed labs. White blood cell count is 10.4. Creatinine is 1.6 which is better than most recent value. Concern for possible secondary infectious process acute on chronic lymphedema with oozing leg and foul-smelling legs. Will start vancomycin
empirically with culture pending Lasix ordered as well. Mid to hospitalist
ED Attending Note
-
Portions of this chart may have been created with voice recognition software.� Occasional wrong word or��sound alike� substitutions may have occurred due to the inherent limitations of voice recognition software.
Discharge Plan
Departure
Patient Disposition: Admit
Date of Disposition: 11/08/23
Time of Disposition: 19:41
Admit to: Telemetry
Presentation/result/management discussed w/ accepting MD/DO: Hospitalist
Patient with high blood pressure during this ER visit?: No
Discharge Problem:
Lymphedema
Prescriptions:
No Action
diltiazem HCl 240 mg Capsule,Extended Release 24hr
240 mg PO DAILY
aspirin 81 mg Tablet,Chewable
81 mg PO DAILY
rosuvastatin [Crestor] 20 mg Tablet
20 mg PO DAILY
sertraline 100 mg Tablet
100 mg PO QPM
miconazole nitrate 2 % Powder
1 applic TOPICAL BIDPRN PRN (Reason: GROIN,ABD FOLDS FOR RASH)
magnesium hydroxide [Milk of Magnesia] 400 mg/5 mL Suspension
30 ml PO DAILYPRN PRN (Reason: CONSTIPATION)
calcium carbonate 500 mg calcium (1,250 mg) Tablet,Chewable
1,000 mg PO DAILY PRN (Reason: HEARTBURN)
ondansetron 4 mg Tablet,Disintegrating
4 mg PO Q6H PRN (Reason: NAUSEA AND VOMITING)
cholecalciferol (vitamin D3) 25 mcg (1,000 unit) Tablet
50 mcg PO DAILY
Michelle Protect (zinc oxide) 12 % Cream
1 applic TOPICAL BID
psyllium Packet
0.5 packet PO DAILYPRN PRN (Reason: constipation)
loperamide 2 mg Tablet
2 mg PO DAILYPRN PRN (Reason: diarrhea)
lidocaine 5 % Adhesive Patch,Medicated
1 patch TOPICAL DAILY
tramadol 50 mg Tablet
50 mg PO BID PRN (Reason: pain)
furosemide 40 mg Tablet
40 mg PO DAILY Qty: 0 0RF
hydralazine 10 mg Tablet
10 mg PO TID Qty: 0 0RF
acetaminophen 325 mg Tablet
650 mg PO Q4HPRN PRN (Reason: mild pain/CHRISTENSEN/temp> 100.4F) Qty: 0 0RF
metoprolol succinate 100 mg Tablet Extended Release 24 Hr
100 mg PO BID Qty: 0 0RF
spironolactone 25 mg Tablet
12.5 mg PO DAILY Qty: 0 0RF
amlodipine 10 mg Tablet
10 mg PO DAILY Qty: 0 0RF
rosuvastatin 20 mg Tablet
20 mg PO QPM Qty: 0 0RF
mirtazapine 7.5 mg Tablet
7.5 mg PO HS Qty: 0 0RF
melatonin 5 mg Tablet
5 mg PO HS Qty: 0 0RF
white petrolatum [Hydrophor] 42 % Ointment
1 applic topical DAILY Qty: 0 0RF
Remove Patch [Remove Lidocaine Patch]
1 patch REMOVE DAILY@1999 Qty: 0 0RF
Referrals:
Renee Bruno DO [Family Provider] -
Interventions
Interventions:
*Risk Screen - Suicide Last Done: 11/08/23 14:14
*General Assessment Last Done: 11/08/23 14:14
*Neglect/Abuse Screening Last Done: 11/08/23 14:14
ED- Cardiac Assessment Last Done: 11/08/23 18:51
ED- Pulmonary Assessment Last Done: 11/08/23 18:51
ED-Skin Assessment Last Done: 11/08/23 18:51
Discharge Date and Time
Print Language: UKRAINIAN
--- NOTE | 2023-11-08 19:48 | HPS.HSE ---
Addendum entered and electronically signed by Joycelyn Tom MD 11/08/23 20:36:
see update note for addendum.
Original Note:
Family Physician
-
Family Physician: Renee Bruno DO
Chief Complaint
-
Increased bilateral leg edema
History of Present Illness
82-year-old female from assisted living at [facility] complaining of increased bilateral leg edema on chronic venous stasis dermatitis weeping with ulcerations. She reports they have not been applying her Kings wraps for possibility weeks when
they are supposed to be applied every day. She states she spends most of the day and in a dependent position in a recliner her family brought her, although she can walk with a walker and uses a wheelchair down to the dining dawkins. According to her
ER records she has had a 13 KG weight gain in the past 2 months. Her son Dalton who is POA at bedside states since having COVID in August and having medication adjustments to her anxiety medication(alprazolam being stopped and Zoloft being stopped
along with trazodone) she was very agitated when she returned back to [facility] those medications were resumed except the trazodone and it took approximately 2 weeks for her to become back to her baseline normal. She has past medical history of
chronic ambulatory dysfunction uses walker at baseline, recurrent falls, vertigo, CKD 3B, E. coli UTI September 2022 E. coli pansensitive, benign HTN, HLD, GERD, anxiety, depression, insomnia, morbid obesity, lumbar laminectomy, bilateral total knee
arthroplasty.
Medical History
Past Medical History
Past Medical History: Reports Other ( GERD, hypertension, hypercholesteremia, CKD 3B, lymphedema, stasis dermatitis, insomnia, obesity, chronic ambulatory dysfunction, insomnia)
Additional Past Medical History:
Chronic diastolic CHF
chronic ambulatory dysfunction uses walker at baseline
recurrent falls
CKD 3B
E. coli UTI September 2022 E. coli pansensitive
benign HTN
HLD
GERD
anxiety
depression
insomnia
morbid obesity
vertigo
Past Surgical History: Reports Other ( Cholecystectomy, Orthopedic (Bilateral knee replacement, and lumbar laminectomy) and Tonsilectomy)
Additional Past Surgical History:
lumbar laminectomy,
bilateral total knee arthroplasty
Tonsillectomy
Social History
Tobacco: Non-smoker
Alcohol: None
Drug: None
Personal: Single
Living: Assisted Living ([facility])
Family History
Family History: Not pertinent
Allergies / Home Medications
Allergies reflects when Allergies were last updated in [employer].
Home Medications with original date entered in [employer]
Allergy/Medication List:
Allergies
Allergy/AdvReac Type Severity Reaction Status Date / Time
shellfish derived Allergy Rash Verified 01/04/23 20:57
Home Medications
aspirin 81 mg chewable tablet 81 mg PO DAILY Blood clot prevention/tx 01/10/22
sertraline 100 mg tablet 100 mg PO DAILY Depression 09/12/22
cholecalciferol (vitamin D3) 25 mcg (1,000 unit) tablet 25 mcg PO DAILY Supplement 12/10/22
tramadol 50 mg tablet 50 mg PO Q12H PRN moderate pain 08/05/23
amlodipine 10 mg tablet 10 mg PO DAILY Blood pressure #0 tabs 08/13/23
melatonin 5 mg tablet 5 mg PO HS Sleep #0 tabs 08/13/23
white petrolatum 42 % topical ointment (Hydrophor) 1 applic topical DAILY Skin issues #0 grams 08/13/23
acetaminophen 325 mg tablet 650 mg PO Q6H PRN mild pain/fever 11/08/23
alprazolam 0.5 mg tablet 0.5 mg PO HS PRN anxiety 11/08/23
doxycycline hyclate 100 mg capsule 100 mg PO BID 11/08/23
hydralazine 25 mg tablet 25 mg PO Q8H 11/08/23
lidocaine 4 % topical cream 1 applic topical DAILY lower back 11/08/23
lidocaine 4 % topical patch (AsperFlex (lidocaine)) 1 patch topical DAILY low back 11/08/23
metoprolol succinate 50 mg tablet,extended release 24 hr 100 mg PO BID 11/08/23
psyllium 1 packet PO Q12H PRN constipation 11/08/23
rosuvastatin 20 mg tablet 20 mg PO HS High cholesterol 11/08/23
Review of Systems
-
History Source: Patient and Family (Son Dalton)
A 12 point ROS was completed and negative except as noted: Yes
Constitutional: Denies Fever or Chills
EENT: Denies Sore Throat or Runny Nose
Respiratory: Denies Cough or Trouble Breathing
Cardiac: Denies Chest Pain, Diaphoresis, Palpitations or Syncope
Abdomen/GI: Denies Abdominal Pain, Nausea, Vomiting, Diarrhea, Constipated, Bloody Stools or Black Stools
: Denies Dysuria, Frequency, Flank Pain, Incontinence or Difficulty Voiding
Musculoskeletal: Reports Edema (Bilateral leg chronic lymphedema with underlying chronic venous stasis and weeping ulcerations); Denies Joint Pain
Skin: Denies Itching or Rash
Neurological: Denies Dizzy, Headache or Weakness
Endocrine: Reports No Symptoms
Hematologic/Lymphatic: Reports No Symptoms
Psych: Reports Calm
Physical Exam
Vital Signs
Vital Signs
Temp Pulse Resp BP Pulse Ox
98.6 F 90 22 166/75 97
11/08/23 19:00 11/08/23 19:00 11/08/23 19:00 11/08/23 19:00 11/08/23 19:00
Physical Exam
General: Morbidly Obese; No Pain, Fever or Chills
HEENT: NormoCephalic, Anicteric, Moist mucous membranes, PERRLA, [place] Conjunctivae and No Ptosis
Respiratory: Clear; No Wheezes, Rales or Rhonchi
Cardiac: S1/S2, Regular Rhythm, Murmur (2/6 systolic) and Peripheral Edema (Bilateral leg chronic lymphedema with underlying chronic venous stasis and weeping ulcerations); No Rub or Gallop
Breast: Deferred by me
GI: Soft, Non Tender, Non Distended, Normal Bowel Sounds and No Hepatosplenomegaly
Rectal: Deferred by Provider
Genito-urinary: Deferred by me
Musculoskeletal: Edema, Left Lower Extremity (Bilateral leg chronic lymphedema with underlying chronic venous stasis and weeping ulcerations) and Edema, Right Lower Extremity (Bilateral leg chronic lymphedema with underlying chronic venous stasis
and weeping ulcerations); No Edema, Left Upper Extremity or Edema, Right Upper Extremity
Skin: Warm, Dry and Ulcers (Bilateral leg chronic lymphedema with underlying chronic venous stasis and weeping ulcerations)
Neuro: AO x 3, No Motor Deficits (While in bed), Nonfocal/grossly intact, Cranial Nerves Intact and No Sensory Deficits; No Slurred Speech, Facial Droop or Tremors
Psych: Calm
Laboratory Results
-
11/08/23 18:20
11/08/23 18:20
Laboratory Results
Total Bilirubin 0.8 mg/dl (0.2-1.3) 11/08/23 18:20
AST 21 U/L (14-36) 11/08/23 18:20
ALT 10 U/L (0-35) 11/08/23 18:20
Alkaline Phosphatase 78 U/L (38-126) 11/08/23 18:20
Impression/Plan
-
Impression/plan:
Admit to telemetry
#Acute on Chronic Peripheral edema 2/2 Chronic diastolic CHF/immobility/lack of compressive dressings
# Chronic bilateral leg venous stasis dermatitis
WBC 8.7, afebrile, nontoxic during
122 kg > 109 kg 08/13/2023(baseline appears to be 108 to 110 kg) WT gain 13kg/28.6 lbs in 2 months
-IV Ancef given in ER will hold as do not suspect infection
-IV Lasix 40 mg now then 40 mg daily(REFRIGERATOR MOVER Lasix 40 mg daily, spironolactone 12.5 p.o. daily)
-Wound care for compressive dressings
PT/Ot /case mgmt consult
#CKD 3B
Creat 1.6 appears near baseline
-Follow BMP
#Recurrent falls history
#Hx of vertigo
-Fall precautions
PT/OT eval
#History E. coli UTI September 2022
was Treated with IV Rocephin
-No Current symptoms
#HTN-benign
166
- cont Diltiazem 240 mg daily, metoprolol succinate 100 mg daily 8 PM, hydralazine 10 mg p.o. 3 times daily, amlodipine 10 mg daily
#GERD
-Continue Tums daily as needed
#HLD
-Continue Crestor 20 mg daily
#Anxiety/depression
-Continue Zoloft 100 mg p.m.
#Insomnia
-Continue mirtazapine 7.5 mg at bedtime, alprazolam 0.5 mg at bedtime
Melatonin 5 mg at bedtime as needed although son states she does not take this
#COVID-19 infection August 2023
#Chronic low back pain
-Lidoderm patch daily
-Tramadol 50 mg every 12 hours as needed moderate pain, Tylenol 650 mg p.o. every 6 hours mild pain
#Morbid obesity due to excess calorie consumption
-Weight loss recommended, healthy heart diet
#Chronic ambulatory dysfunction
- uses walker at baseline
DVT prophylaxis
Subcu Lovenox
Full code per patient with son Dalton RENE at bedside. He states he does not want any of her anxiety medication, insomnia medication or blood pressure medication adjusted without a phone call by a physician
[2023-11-08] MEDS: LASIX 40 MG IV (20:26)
--- NOTE | 2023-11-08 20:37 | W.PN.UPDATE ---
Update Note
Progress Note Update
I saw and examined the patient.
The SHOWCASE MAKER Arline's note was reviewed and I agree with the note.
Comment: 83 y/o F, presenting from [place] with bilateral leg edema, increasing with underlying chronic venous statis dermatitis. She also has a hx of CKD3b, chronic ambulatory dysfunction, HTN, Obesity. Per patient and her son Dalton, the facility has
been inconsistent with applying compression therapy/deena wraps (should be done daily). At baseline she uses a walker for short distances and wheelchair for longer distances. In ER, she is noted to have 12kg weight gain in 2 months. Denies any
fevers/chills, no cp or sob. No GI or complaints. She was recently admitted in August for COVID; sent to [facility] prior to return home.
Physical Exam
General: Morbidly Obese; No Pain, Fever or Chills
HEENT: Normocephalic, Anicteric, Moist mucous membranes, PERRLA, [place] Conjunctivae and No Ptosis
Respiratory: Clear; No Wheezes, Rales or Rhonchi
Cardiac: S1/S2, Regular Rhythm, Murmur (2/6 systolic) and Peripheral Edema (Bilateral leg chronic lymphedema with underlying chronic venous stasis and weeping ulcerations); No Rub or Gallop
Breast: Deferred by me
GI: Soft, Non Tender, Non Distended, Normal Bowel Sounds and No Hepatosplenomegaly
Rectal: Deferred by Provider
Genito-urinary: Deferred by me
Musculoskeletal: Edema, Left Lower Extremity (Bilateral leg chronic lymphedema with underlying chronic venous stasis and weeping ulcerations) and Edema, Right Lower Extremity (Bilateral leg chronic lymphedema with underlying chronic venous stasis
and weeping ulcerations); No Edema, Left Upper Extremity or Edema, Right Upper Extremity
Skin: Warm, Dry and Ulcers (Bilateral leg chronic lymphedema with underlying chronic venous stasis and weeping ulcerations)
Neuro: AO x 3, No Motor Deficits (While in bed), Nonfocal/grossly intact, Cranial Nerves Intact and No Sensory Deficits; No Slurred Speech, Facial Droop or Tremors
Psych: Calm
Plan:
As outlined in SHOWCASE MAKER Arline note
continue IV Lasix daily; monitor I/OS, weights, lytes
exam suggests dependant rubor; no clear evidence of infection. no fevers. no leukocytosis. Monitor off Abx.
Wound care for compression therapy
PT/OT
Continue rest of meds
Please note, son Dalton would like to discuss any proposed changes for meds.
[2023-11-08] MEDS: VANCOCIN 540 MG IV (21:29)
[2023-11-08] MEDS: CRESTOR 20 MG PO (23:09)
[2023-11-08] MEDS: ULTRAM 50 MG PO (23:09)
[2023-11-08] MEDS: APRESOLINE 25 MG PO (23:10)
[2023-11-08] MEDS: XANAX 0.5 MG PO (23:10)
--- NOTE | 2023-11-08 23:29 | PTCARENOTE ---
Received pt from ED via stretcher. Pt pulled over onto bed, pt states she hasn't walked in over a week. AAOx3, however forgetful. BP elevated, other VSS. Oriented pt to floor, call adrian within reach.
[2023-11-09] VITALS (8 sets, daily range): BP systolic 133–176; BP diastolic 63–79; PULSE 65; O2SAT 97; BMI 45.6
[2023-11-09] MEDS: TYLENOL 650 MG PO (00:18)
--- NOTE | 2023-11-09 07:35 | W.PN.HOSP.TC ---
Today's Communication/Plan
-
IV Lasix. Lower extremity wound care. PT OT eval.
Assessment / Plan
Assessment / Plan
Physical exam:
General: Acutely ill. Obese. No acute distress.
HEENT: Normocephalic, Atraumatic and Moist Mucous Membranes
Respiratory: Clear to Auscultation; Negative Wheezes, Rales or Rhonchi
Cardiac: Regular Rhythm and S1/S2
GI: Soft, Nontender and Nondistended
Skin: Bilateral lower extremity edema, bilateral venous stasis changes and weeping ulcerations on both legs. Lymphedema present
Musculoskeletal: No Clubbing, No Cyanosis and No Edema
Neuro: Awake, Alert and Oriented
Psych: Calm
A/P:
#Acute on Chronic Peripheral edema 2/2 Chronic diastolic CHF/immobility/lack of compressive dressings
# Chronic bilateral leg venous stasis dermatitis
WBC 8.7, afebrile, nontoxic appearance, WBC 9.3 today. I agree with no signs of infection.
122 kg > 109 kg 08/13/2023(baseline appears to be 108 to 110 kg) WT gain 13kg/28.6 lbs in 2 months
-IV Ancef given in ER will hold as do not suspect infection. Continue to hold off on antibiotics.
-IV Lasix 40 mg now then 40 mg daily(PRIVATE BANKER Lasix 40 mg daily, spironolactone 12.5 p.o. daily). Continue Lasix 40 m IV daily.
-Wound care for compressive dressings
PT/Ot /case mgmt consult
#CKD 3B
Creat 1.6-->1.7 appears near baseline. Continue to monitor while diurese.
-Follow BMP
#Recurrent falls history
#Hx of vertigo
-Fall precautions
PT/OT eval
#History E. coli UTI September 2022
was Treated with IV Rocephin
-No Current symptoms
#HTN-benign
- cont Diltiazem 240 mg daily, metoprolol succinate 100 mg daily 8 PM, hydralazine 10 mg p.o. 3 times daily, amlodipine 10 mg daily
#GERD
-Continue Tums daily as needed
#HLD
-Continue Crestor 20 mg daily
#Anxiety/depression
-Continue Zoloft 100 mg p.m.
#Insomnia
-Continue mirtazapine 7.5 mg at bedtime, alprazolam 0.5 mg at bedtime
Melatonin 5 mg at bedtime as needed although son states she does not take this
#COVID-19 infection August 2023
#Chronic low back pain
-Lidoderm patch daily
-Tramadol 50 mg every 12 hours as needed moderate pain, Tylenol 650 mg p.o. every 6 hours mild pain
#Morbid obesity due to excess calorie consumption
-Weight loss recommended, healthy heart diet
#Chronic ambulatory dysfunction
- uses walker at baseline
DVT prophylaxis
Subcu Lovenox
Full code
Anticipated Discharge: 24 - 48 hours
Subjective/Interval History
-
Date of Service: November 09, 2023
Patient denies worsening shortness of breath. Edema in the legs present and having compression stockings now. Afebrile.
Objective Data
-
Labs:
Laboratory Results
11/09/23
07:33
WBC Pending
Hgb Pending
Hct Pending
Plt Count Pending
Sodium Pending
Potassium Pending
Chloride Pending
Carbon Dioxide Pending
BUN Pending
Creatinine Pending
Glucose Pending
Calcium Pending
Total Bilirubin Pending
AST Pending
ALT Pending
Alkaline Phosphatase Pending
Vital Signs:
Vital Signs
Temp Pulse Resp BP Pulse Ox
98.8 F 73 17 133/64 93
11/09/23 03:31 11/09/23 03:31 11/09/23 03:31 11/09/23 03:31 11/09/23 03:31
I&O
11/08/23 11/09/23 11/10/23
06:59 06:59 06:59
Intake Total 480 / 480
Output Total 2450 / 2450
Balance -1969 / -1969
[2023-11-09 07:59] LABS: % Basophils 0.5 % (0-2); % Eosinophils 1.5 % (0-6); % Immature Granulocytes 0.9 % (0-0.5); % Lymphocytes 23.1 % (20.5-51.1); % Monocytes 9.2 % (1.7-9.3); % Neutrophils 64.8 % (42.2-75.2); Absolute Basophils 0.1 10^3/uL (0-0.2); Absolute Eosinophils 0.1 10^3/uL (0-0.7); Absolute Immature Granulocytes 0.1 10^3/uL (0-0.05); Absolute Lymphocytes 2.2 10^3/uL (1.2-3.4); Absolute Monocytes 0.9 10^3/uL (0.1-0.6); Hematocrit 35.2 % (37.0-47.0); Hemoglobin 11.7 g/dL (12.0-16.0); Mean Corp Hgb Conc. 33.2 g/dL (33.0-37.0); Mean Corpuscular Hgb 29.8 pg (27.0-31.0); Mean Corpuscular Volume 89.6 fL (81.0-99.0); Mean Platelet Volume 10.1 fL (7.4-10.4); Nucleated Red Blood Cells % 0 %; Platelet Count 201 10^3/uL (130-400); Red Blood Cell Count 3.93 10^6/uL (4.20-5.40); Red Cell Dist. Width 14.5 % (11.5-14.5); White Blood Cell Count 9.3 10^3/uL (4.8-10.8)
[2023-11-09 08:35] LABS: ALT (SGPT) < 10 U/L (0-35); AST (SGOT) 18 U/L (14-36); Albumin 3.2 g/dl (3.5-5.0); Alkaline Phosphatase 73 U/L (38-126); Blood Urea Nitrogen 46 mg/dl (7-17); Calcium 10.8 mg/dl (8.4-10.2); Carbon Dioxide 21 mmol/L (22-30); Chloride 108 mmol/L (98-107); Estimated Creatinine Clearance 30 ml/min; Glucose 95 mg/dl (70-99); Potassium 4.3 mmol/L (3.5-5.1); Sodium 136 mmol/L (135-145); eGFR 29.39
[2023-11-09] MEDS: APRESOLINE 25 MG PO ×3 (09:30→23:08)
[2023-11-09] MEDS: LIDOCAINE 4% PATCH 1 PATCH TOPICAL (09:31)
[2023-11-09] MEDS: LASIX 40 MG IV (09:31)
[2023-11-09] MEDS: FLUSH (NSS) 2 FLUSH IV (09:31)
[2023-11-09] MEDS: TOPROL XL 100 MG PO ×2 (09:33→19:48)
[2023-11-09] MEDS: VITAMIN D3 (cholecalciferol) 25 MCG PO (09:33)
[2023-11-09] MEDS: LOW STRENGTH ASPIRIN 81 MG PO (09:33)
[2023-11-09] MEDS: NORVASC 10 MG PO (09:33)
[2023-11-09] MEDS: ZOLOFT 100 MG PO (09:33)
--- NOTE | 2023-11-09 11:23 | CM ---
Patient seen bedside, on phone with son Dalton, patient ended phone call to conduct initial assessment. Patient reports she resides at [facility], has a walker and wheelchair, does receive PT there. Patient confirms [facility] in past, per
previous CM documentation, patient also history with [facility]. Patient confirms PCP Renee Bruno, pharmacy [facility] in [place].
CM left message for patients nurse, Arianne, at [facility], to obtain patients PLOF. CM will continue to follow for discharge planning needs.
Plan; watch for PT/OT evals, return to [facility] vs SNF recommendations.
--- NOTE | 2023-11-09 12:07 | WOUNDNOTE ---
L ANTERIOR LOWER LEG
--- NOTE | 2023-11-09 12:08 | WOUNDNOTE ---
L MEDIAL POSTERIOR LOWER LEG
--- NOTE | 2023-11-09 12:08 | WOUNDNOTE ---
POSTERIOR LOWER LEGS
--- NOTE | 2023-11-09 12:09 | WOUNDNOTE ---
ALIVIA RN note: Patient admitted with lymphedema.
See H&P for complete history. Patient [place] [facility]
PMH: Ambulates with walker to wheelchair, UTI, venous stasis, lumbar laminectomy, bilateral knee replacement, vertigo, CKD3b, HTN, anxiety, depression, morbid obesity, falls.
Wound Location and type/assessment: Patient known to service from previous admissions. Bilateral LE stasis dermatitis with weeping patches of skin, L>R. +2-3 bilateral leg edema. Pedal pulses palpable, skin warm and dry. Turned patient with
assistance, sacrum and heels are intact.
Appetite: good.
Pressure redistribution devices in place: VersaFeesheh Accumax. Turning schedule enforced.
Plan: Today applied adaptic and dry dressings to legs with knee high deena wraps. Will order mineral oil to start tomorrow. Pillows placed under calves. Will confirm orders with hospitalist and updated nurse Tess.
Care plan to be updated and will follow as needed.
[2023-11-09] MEDS: LOVENOX 40 MG SC (17:57)
[2023-11-09] MEDS: CRESTOR 20 MG PO (19:48)
[2023-11-09] MEDS: DESENEX/MITRAZOL/ZEASORB 1 APPLIC TOPICAL (19:49)
[2023-11-09] MEDS: ULTRAM 50 MG PO (21:01)
[2023-11-09] MEDS: XANAX 0.5 MG PO (23:09)
[2023-11-10] VITALS (7 sets, daily range): BP systolic 149–189; BP diastolic 58–83; BMI 44.5
[2023-11-10 07:38] LABS: ALT (SGPT) < 10 U/L (0-35); AST (SGOT) 19 U/L (14-36); Albumin 3.2 g/dl (3.5-5.0); Alkaline Phosphatase 78 U/L (38-126); Blood Urea Nitrogen 45 mg/dl (7-17); Calcium 10.6 mg/dl (8.4-10.2); Carbon Dioxide 26 mmol/L (22-30); Chloride 103 mmol/L (98-107); Estimated Creatinine Clearance 34 ml/min; Glucose 97 mg/dl (70-99); Potassium 4.3 mmol/L (3.5-5.1); Sodium 133 mmol/L (135-145); Total Bilirubin 1.1 mg/dl (0.2-1.3); eGFR 34.15
[2023-11-10 07:41] LABS: % Basophils 0.5 % (0-2); % Eosinophils 2.4 % (0-6); % Immature Granulocytes 0.8 % (0-0.5); % Lymphocytes 22.2 % (20.5-51.1); % Neutrophils 65.1 % (42.2-75.2); Absolute Basophils 0.1 10^3/uL (0-0.2); Absolute Eosinophils 0.2 10^3/uL (0-0.7); Absolute Immature Granulocytes 0.1 10^3/uL (0-0.05); Absolute Lymphocytes 2.3 10^3/uL (1.2-3.4); Absolute Monocytes 0.9 10^3/uL (0.1-0.6); Absolute Neutrophils 6.6 10^3/uL (1.4-6.5); Hematocrit 35.6 % (37.0-47.0); Mean Corp Hgb Conc. 33.7 g/dL (33.0-37.0); Mean Corpuscular Hgb 29.9 pg (27.0-31.0); Mean Corpuscular Volume 88.8 fL (81.0-99.0); Mean Platelet Volume 10.5 fL (7.4-10.4); Nucleated Red Blood Cells % 0 %; Platelet Count 205 10^3/uL (130-400); Red Blood Cell Count 4.01 10^6/uL (4.20-5.40); Red Cell Dist. Width 14.2 % (11.5-14.5); White Blood Cell Count 10.2 10^3/uL (4.8-10.8)
[2023-11-10] MEDS: LIDOCAINE 4% PATCH 1 PATCH TOPICAL (09:10)
[2023-11-10] MEDS: TOPROL XL 100 MG PO ×2 (09:11→20:34)
[2023-11-10] MEDS: DESENEX/MITRAZOL/ZEASORB 1 APPLIC TOPICAL ×2 (09:11→20:35)
[2023-11-10] MEDS: LASIX 40 MG IV (09:12)
[2023-11-10] MEDS: NORVASC 10 MG PO (09:12)
[2023-11-10] MEDS: HYDROPHOR 1 APPLIC TOPICAL (09:12)
[2023-11-10] MEDS: VITAMIN D3 (cholecalciferol) 25 MCG PO (09:12)
[2023-11-10] MEDS: LOW STRENGTH ASPIRIN 81 MG PO (09:12)
[2023-11-10] MEDS: ZOLOFT 100 MG PO (09:12)
[2023-11-10] MEDS: APRESOLINE 25 MG PO ×3 (09:12→23:57)
--- NOTE | 2023-11-10 10:51 | W.PN.HOSP.TC ---
Today's Communication/Plan
-
Continue with compression therapy
Echocardiogram
IV Lasix
Monitor creatinine
Assessment / Plan
Assessment / Plan
Physical exam:
General: Acutely ill. Obese. No acute distress.
HEENT: Normocephalic, Atraumatic and Moist Mucous Membranes
Respiratory: Clear to Auscultation; Negative Wheezes, Rales or Rhonchi
Cardiac: Regular Rhythm and S1/S2
GI: Soft, Nontender and Nondistended
Skin: Bilateral lower extremity edema, bilateral venous stasis changes and weeping ulcerations on both legs. Lymphedema present
Musculoskeletal: No Clubbing, No Cyanosis and No Edema
Neuro: Awake, Alert and Oriented
Psych: Calm
A/P:
#Acute on Chronic Peripheral edema 2/2 Chronic diastolic CHF/immobility/lack of compressive dressings
# Chronic bilateral leg venous stasis dermatitis
122 kg > 109 kg 08/13/2023(baseline appears to be 108 to 110 kg) WT gain 13kg/28.6 lbs in 2 months
-IV Ancef given in ER will hold as do not suspect infection. Continue to hold off on antibiotics.
-IV Lasix 40 mg now then 40 mg daily(IMPREGNATOR AND DRIER Lasix 40 mg daily, spironolactone 12.5 p.o. daily). Continue Lasix 40 m IV daily.
-Wound care for compressive dressings
PT/Ot /case mgmt consult
-ECHO pending
#CKD 3B
Creat 1.6-->1.7 appears near baseline. Continue to monitor while diurese.
-Follow BMP
#Recurrent falls history
#Hx of vertigo
-Fall precautions
PT/OT eval
#History E. coli UTI September 2022
was Treated with IV Rocephin
-No Current symptoms
#HTN-benign
- cont Diltiazem 240 mg daily, metoprolol succinate 100 mg daily 8 PM, hydralazine 10 mg p.o. 3 times daily, amlodipine 10 mg daily
#GERD
-Continue Tums daily as needed
#HLD
-Continue Crestor 20 mg daily
#Anxiety/depression
-Continue Zoloft 100 mg p.m.
#Insomnia
-Continue mirtazapine 7.5 mg at bedtime, alprazolam 0.5 mg at bedtime
Melatonin 5 mg at bedtime as needed although son states she does not take this
#COVID-19 infection August 2023
#Chronic low back pain
-Lidoderm patch daily
-Tramadol 50 mg every 12 hours as needed moderate pain, Tylenol 650 mg p.o. every 6 hours mild pain
#Morbid obesity due to excess calorie consumption
-Weight loss recommended, healthy heart diet
#Chronic ambulatory dysfunction
- uses walker at baseline
DVT prophylaxis
Subcu Lovenox
Full code
Anticipated Discharge: > 48 hours
Subjective/Interval History
-
Date of Service: November 10, 2023
Remains with severe lower extremity edema
Losing weight with diuretics
states feeling tired and sick
Objective Data
-
Labs:
Laboratory Results
11/10/23
06:41
WBC 10.2
Hgb 12.0
Hct 35.6 L
Plt Count 205
Sodium 133 L
Potassium 4.3
Chloride 103
Carbon Dioxide 26
BUN 45 H
Creatinine 1.5 H
Glucose 97
Calcium 10.6 H
Total Bilirubin 1.1
AST 19
ALT < 10
Alkaline Phosphatase 78
Vital Signs:
Vital Signs
Temp Pulse Resp BP Pulse Ox
98.2 F 66 20 174/77 92
11/10/23 07:37 11/10/23 09:11 11/10/23 07:37 11/10/23 09:11 11/10/23 07:37
I&O
11/09/23 11/10/23 11/11/23
06:59 06:59 06:59
Intake Total 480 / 480 1380 / 1380
Output Total 2450 / 2450 4350 / 4350
Balance -1969 / -1970 -2970 / -2970
Data Reviewed
-
Total Time Spent with Patient (in minutes): 55
--- NOTE | 2023-11-10 11:37 | CM ---
CM spoke with both ANETTE/Arianne and Jovani at [facility]
Pt is a PCU resident
She is normally independent with ambulation short distances with use of a WW
AxO 2-3x
She is pushed in a WC for longer distances
Staff assist with bathing and dressing
Preferred providers are [facility]
Clinicals reviewed with Jovani and faxed to [phone]
May consider return to PCU with PT/OT improvement
Requested rehab be arranged if pt unable to return back
DON will likely do an onsite assessment prior to dc to determine safety for return to [facility]
Call to son with update
He is in agreement with SNF referrals
PAS[facility] completed and referrals sent to [facility], [facility], and [facility]
Discharge Disposition - return to [facility] with [facility] vs SNF
[2023-11-10] MEDS: LOVENOX 40 MG SC (17:01)
[2023-11-10] MEDS: TYLENOL 650 MG PO (20:44)
[2023-11-10] MEDS: CRESTOR 20 MG PO (20:59)
[2023-11-11] MEDS: XANAX 0.5 MG PO ×2 (01:15→23:30)
[2023-11-11 03:13] VITALS: BP 159/65
[2023-11-11] MEDS: TYLENOL 650 MG PO ×2 (04:22→20:50)
[2023-11-11 06:00] VITALS: BMI 44.0
[2023-11-11 06:51] LABS: % Basophils 0.6 % (0-2); % Eosinophils 2.7 % (0-6); % Immature Granulocytes 0.9 % (0-0.5); % Lymphocytes 22.6 % (20.5-51.1); % Monocytes 9.7 % (1.7-9.3); % Neutrophils 63.5 % (42.2-75.2); Absolute Basophils 0.1 10^3/uL (0-0.2); Absolute Eosinophils 0.3 10^3/uL (0-0.7); Absolute Immature Granulocytes 0.1 10^3/uL (0-0.05); Absolute Lymphocytes 2.4 10^3/uL (1.2-3.4); Absolute Neutrophils 6.7 10^3/uL (1.4-6.5); Hematocrit 37.8 % (37.0-47.0); Hemoglobin 12.5 g/dL (12.0-16.0); Mean Corp Hgb Conc. 33.1 g/dL (33.0-37.0); Mean Corpuscular Hgb 29.5 pg (27.0-31.0); Mean Corpuscular Volume 89.2 fL (81.0-99.0); Mean Platelet Volume 10.1 fL (7.4-10.4); Nucleated Red Blood Cells % 0 %; Platelet Count 205 10^3/uL (130-400); Red Blood Cell Count 4.24 10^6/uL (4.20-5.40); White Blood Cell Count 10.5 10^3/uL (4.8-10.8)
[2023-11-11 07:17] LABS: ALT (SGPT) < 10 U/L (0-35); AST (SGOT) 19 U/L (14-36); Albumin 3.2 g/dl (3.5-5.0); Alkaline Phosphatase 84 U/L (38-126); Blood Urea Nitrogen 48 mg/dl (7-17); Calcium 10.4 mg/dl (8.4-10.2); Carbon Dioxide 28 mmol/L (22-30); Chloride 100 mmol/L (98-107); Estimated Creatinine Clearance 30 ml/min; Glucose 97 mg/dl (70-99); Potassium 3.9 mmol/L (3.5-5.1); Sodium 133 mmol/L (135-145); Total Bilirubin 1.2 mg/dl (0.2-1.3); eGFR 29.39
[2023-11-11 07:25] VITALS: BP 137/82
[2023-11-11] MEDS: LOW STRENGTH ASPIRIN 81 MG PO (09:46)
[2023-11-11] MEDS: NORVASC 10 MG PO (09:46)
[2023-11-11] MEDS: TOPROL XL 100 MG PO ×2 (09:46→20:16)
[2023-11-11] MEDS: ZOLOFT 100 MG PO (09:46)
[2023-11-11] MEDS: VITAMIN D3 (cholecalciferol) 25 MCG PO (09:46)
[2023-11-11] MEDS: APRESOLINE 25 MG PO ×3 (09:46→23:27)
[2023-11-11] MEDS: LASIX 40 MG IV (09:47)
[2023-11-11] MEDS: HYDROPHOR 1 APPLIC TOPICAL (09:47)
[2023-11-11] MEDS: DESENEX/MITRAZOL/ZEASORB 1 APPLIC TOPICAL ×2 (09:48→20:17)
[2023-11-11] MEDS: LIDOCAINE 4% PATCH TOPICAL (09:48)
--- NOTE | 2023-11-11 10:30 | W.PN.HOSP.TC ---
Today's Communication/Plan
-
Continue with IV Lasix for additional 24 hours
Losing weight
Case management start disposition process
Continue with Kings wrap
Assessment / Plan
Assessment / Plan
Physical exam:
General: Acutely ill. Obese. No acute distress.
HEENT: Normocephalic, Atraumatic and Moist Mucous Membranes
Respiratory: Clear to Auscultation; Negative Wheezes, Rales or Rhonchi
Cardiac: Regular Rhythm and S1/S2
GI: Soft, Nontender and Nondistended
Skin: Bilateral lower extremity edema, bilateral venous stasis changes and weeping ulcerations on both legs. Lymphedema present
Musculoskeletal: No Clubbing, No Cyanosis and No Edema
Neuro: Awake, Alert and Oriented
Psych: Calm
A/P:
#Acute on Chronic Peripheral edema 2/2 Chronic diastolic CHF/immobility/lack of compressive dressings/discontinuation of diuretics
# Chronic bilateral leg venous stasis dermatitis
122 kg > 109 kg 08/13/2023(baseline appears to be 108 to 110 kg) WT gain 13kg/28.6 lbs in 2 months
-IV Ancef given in ER will hold as do not suspect infection. Continue to hold off on antibiotics.
-IV Lasix 40 mg now then 40 mg daily(BUSINESS ANALYST Lasix 40 mg daily, spironolactone 12.5 p.o. daily-not on home med list). Continue Lasix 40 m IV daily.
-Wound care for compressive dressings
-PT/Ot /case mgmt consult
-ECHO EF of 55 to 60%. Normal regional wall motion. Mild LVH. Normal biventricular size and function with no significant valvular disease. Compared to echo no significant change
#CKD 3B
Creat 1.6-->1.7 appears near baseline. Continue to monitor while diurese.
-Follow BMP
#Recurrent falls history
#Hx of vertigo
-Fall precautions
PT/OT eval
#History E. coli UTI September 2022
was Treated with IV Rocephin
-No Current symptoms
#HTN-benign
- cont Diltiazem,metoprolol succinate 100 mg daily, hydralazine, amlodipine,
#GERD
-Continue Tums daily as needed
#HLD
-Continue Crestor 20 mg daily
#Anxiety/depression
-Continue Zoloft 100 mg p.m.
#Insomnia
-Continue mirtazapine 7.5 mg at bedtime, alprazolam 0.5 mg at bedtime
Melatonin 5 mg at bedtime as needed although son states she does not take this
#COVID-19 infection August 2023
#Chronic low back pain
-Lidoderm patch daily
-Tramadol 50 mg every 12 hours as needed moderate pain, Tylenol 650 mg p.o. every 6 hours mild pain
#Morbid obesity due to excess calorie consumption
-Weight loss recommended, healthy heart diet
#Chronic ambulatory dysfunction
- uses walker at baseline
DVT prophylaxis
Subcu Lovenox
Full code
PT/OT-
Anticipated Discharge: Within 24 hours
Subjective/Interval History
-
Date of Service: November 11, 2023
Remains with good urinary output
Edema improving
Objective Data
-
Labs:
Laboratory Results
11/11/23
06:10
WBC 10.5
Hgb 12.5
Hct 37.8
Plt Count 205
Sodium 133 L
Potassium 3.9
Chloride 100
Carbon Dioxide 28
BUN 48 H
Creatinine 1.7 H
Glucose 97
Calcium 10.4 H
Total Bilirubin 1.2
AST 19
ALT < 10
Alkaline Phosphatase 84
Vital Signs:
Vital Signs
Temp Pulse Resp BP Pulse Ox
98.1 F 57 17 137/82 96
11/11/23 07:25 11/11/23 09:46 11/11/23 07:25 11/11/23 09:46 11/11/23 07:25
I&O
11/10/23 11/11/23 11/12/23
06:59 06:59 06:59
Intake Total 1380 / 1380 1320 / 1320
Output Total 4350 / 4350 1775 / 1775
Balance -2970 / -2970 -455 / -455
Data Reviewed
-
Total Time Spent with Patient (in minutes): 55
[2023-11-11 11:25] VITALS: BP 149/65
[2023-11-11 15:25] VITALS: BP 160/79
[2023-11-11] MEDS: ULTRAM 50 MG PO (15:32)
--- NOTE | 2023-11-11 16:23 | CM ---
met with patient who is sating 96% on ra,cont iv lasix for next 24 hours,therapy has recommended skilled rehab.[facility] has accepted patient.le compression dressings,i have spoken with brigida who wants to return to [facility] instead of
going to rehab.i have spoken to maryan flores who will not accept patient back to [facility] until she goes to skilled rehab first.floor nurse and attending updated.plan is for probable discharge to snf tomorrow.i left [facility] for daughter analisa.
[2023-11-11] MEDS: LOVENOX 40 MG SC (17:19)
[2023-11-11] MEDS: CRESTOR 20 MG PO (20:18)
[2023-11-11 23:33] VITALS: BP 149/60
--- NOTE | 2023-11-12 03:03 | PTCARENOTE ---
Patient incontinent of urine. Max assist of 2 with turning and incontinence care. Patient verbally assaulting staff during care. 'You're stupid, nurse Pavel.' Care provided, bed alarm on, call adrian in reach. Plan of care continues.
[2023-11-12 06:00] VITALS: BMI 42.9
[2023-11-12 07:50] VITALS: BP 176/76
[2023-11-12 08:06] LABS: Blood Urea Nitrogen 43 mg/dl (7-17); Calcium 10.5 mg/dl (8.4-10.2); Carbon Dioxide 29 mmol/L (22-30); Chloride 99 mmol/L (98-107); Estimated Creatinine Clearance 33 ml/min; Glucose 105 mg/dl (70-99); Magnesium 1.7 mg/dl (1.6-2.3); Potassium 3.8 mmol/L (3.5-5.1); Sodium 133 mmol/L (135-145); eGFR 34.15
[2023-11-12] MEDS: TOPROL XL 100 MG PO (08:08)
[2023-11-12] MEDS: LASIX 40 MG IV (08:09)
[2023-11-12] MEDS: NORVASC 10 MG PO (08:09)
[2023-11-12] MEDS: APRESOLINE 25 MG PO ×2 (08:09→16:51)
[2023-11-12] MEDS: ZOLOFT 100 MG PO (08:09)
[2023-11-12] MEDS: VITAMIN D3 (cholecalciferol) 25 MCG PO (08:09)
[2023-11-12] MEDS: LOW STRENGTH ASPIRIN 81 MG PO (08:09)
[2023-11-12] MEDS: DESENEX/MITRAZOL/ZEASORB 1 APPLIC TOPICAL (08:10)
[2023-11-12] MEDS: HYDROPHOR 1 APPLIC TOPICAL (08:10)
[2023-11-12] MEDS: LIDOCAINE 4% PATCH 1 PATCH TOPICAL (08:17)
--- NOTE | 2023-11-12 10:40 | W.PN.HOSP.TC ---
Today's Communication/Plan
-
po lasix
Start disposition efforts
Assessment / Plan
Assessment / Plan
Physical exam:
General: Acutely ill. Obese. No acute distress.
HEENT: Normocephalic, Atraumatic and Moist Mucous Membranes
Respiratory: Clear to Auscultation; Negative Wheezes, Rales or Rhonchi
Cardiac: Regular Rhythm and S1/S2
GI: Soft, Nontender and Nondistended
Skin: Bilateral lower extremity edema, bilateral venous stasis changes and weeping ulcerations on both legs. Lymphedema present significantly improved
Musculoskeletal: No Clubbing, No Cyanosis and No Edema
Neuro: Awake, Alert and Oriented
Psych: Calm
A/P:
#Acute on Chronic Peripheral edema 2/2 acute on Chronic diastolic CHF/immobility/lack of compressive dressings/discontinuation of diuretics
# Chronic bilateral leg venous stasis dermatitis
-Significant weight loss and improvement in LE edema.
-IV Lasix 40 mg now then 40 mg daily(OUTSOLE CASER Lasix 40 mg daily, spironolactone 12.5 p.o. daily-not on home med list). Switch to 40 mg p.o. Lasix daily
-Wound care for compressive dressings
-PT/Ot /case mgmt consult
-ECHO EF of 55 to 60%. Normal regional wall motion. Mild LVH. Normal biventricular size and function with no significant valvular disease. Compared to echo no significant change
#CKD 3B
Creat appears near baseline. Continue to monitor while diurese.
-Follow BMP
#Recurrent falls history
#Hx of vertigo
-Fall precautions
PT/OT eval
#History E. coli UTI September 2022
was Treated with IV Rocephin
-No Current symptoms
#HTN-benign
- cont Diltiazem,metoprolol succinate 100 mg daily, hydralazine, amlodipine,
#GERD
-Continue Tums daily as needed
#HLD
-Continue Crestor 20 mg daily
#Anxiety/depression
-Continue Zoloft 100 mg p.m.
#Insomnia
-Continue mirtazapine 7.5 mg at bedtime, alprazolam 0.5 mg at bedtime
#COVID-19 infection August 2023
#Chronic low back pain
-Lidoderm patch daily
-Tramadol 50 mg every 12 hours as needed moderate pain, Tylenol 650 mg p.o. every 6 hours mild pain
#Morbid obesity due to excess calorie consumption
-Weight loss recommended, healthy heart diet
#Chronic ambulatory dysfunction
- uses walker at baseline
DVT prophylaxis
Subcu Lovenox
Full code
PT/OT-SNF.
More than 30 minutes spent in discharge including
Final examination of the patient
Summarizing hospital stay
Instructions for continuing care to all relevant caregivers
Preparation of discharge records, prescriptions, and referral forms
Total time spent (in minutes): 52
Anticipated Discharge: Today
Subjective/Interval History
-
Date of Service: November 12, 2023
states improvement in lower extremity edema
Objective Data
-
Labs:
Laboratory Results
11/12/23
06:43
Sodium 133 L
Potassium 3.8
Chloride 99
Carbon Dioxide 29
BUN 43 H
Creatinine 1.5 H
Glucose 105 H
Calcium 10.5 H
Vital Signs:
Vital Signs
Temp Pulse Resp BP Pulse Ox
98.1 F 66 16 176/76 93
11/12/23 07:50 11/12/23 08:08 11/12/23 07:50 11/12/23 08:08 11/12/23 08:00
I&O
11/11/23 11/12/23 11/13/23
06:59 06:59 06:59
Intake Total 1320 / 1320 960 / 960
Output Total 1775 / 1775 250 / 250
Balance -455 / -455 710 / 710
--- NOTE | 2023-11-12 12:29 | W.DCSUMMARY ---
Discharge Summary
Discharge Data
Date of Admission: 11/08/23
Date of Discharge: 11/12/23
-
Pending Results: No
Hospital Course
83 female past medical history of CKD, primary hypertension, chronic HFpEF, chronic lymphedema, morbid obesity due to excess calories, anxiety, depression, insomnia, chronic low back pain who is presented with worsening of lower extremity edema.
Patient was started on IV Lasix. Patient lost significant amount of weight with diuresis. Patient lost approximately 12 to 13 kg. Of note patient was admitted 3 months ago and during that hospitalization patient was recommended to be on Lasix 40
mg and Aldactone for history of congestive heart failure. Lasix was not seen on her home medication list upon admission. Patient with significant improvement in lower extremity edema. Patient was seen by wound care and Kings wrap. Patient was seen
by physical and Occupational Therapy and recommending alf facility prior to going back to assisted living facility.
Discharge Plan
-
Patient Disposition: Skilled Nursing/SNF
Discharge Diagnosis/Procedures: Acute on Chronic Peripheral edema 2/2 Chronic diastolic CHF/immobility/lack of compressive dressings/discontinuation of diuretics
Condition: Fair
Diet: 2 Gram Sodium and Restrict fluids to 48 oz
Activity: With assistance
Driving Restrictions: Not until seen by your Dr
Blood Work: BMP in 1 week via primary doctor.
Specialty Instructions: Weigh Daily- Call MD for wt gain/loss 3 lbs overnight/5 lbs in 1 week
Activity Restrictions/Additional Instructions:
Wound Care Instructions
Legs: clean with soap and water, adaptic, (alginate for increased drainage), abd pad and kerlix daily and prn drainage.
mineral oil to legs and feet daily
Kings wraps knee high daily or equivalent compression stockings, Can remove at bedtime.
leg elevation when sitting
Follow up at wound care center call for an appointment.
Referrals:
Renee Bruno, DO [Family Provider] - in less than 1 week
Prescriptions:
New
furosemide [Lasix] 40 mg tablet
40 mg PO DAILY Qty: 30 0RF
Continued
aspirin 81 mg Tablet,Chewable
81 mg PO DAILY
sertraline 100 mg Tablet
100 mg PO DAILY
cholecalciferol (vitamin D3) 25 mcg (1,000 unit) Tablet
25 mcg PO DAILY
tramadol 50 mg Tablet
50 mg PO Q12H PRN (Reason: moderate pain)
amlodipine 10 mg Tablet
10 mg PO DAILY Qty: 0 0RF
white petrolatum [Hydrophor] 42 % Ointment
1 applic topical DAILY Qty: 0 0RF
Patient Comments:
11/08/2023: applyto bilateral legs
doxycycline hyclate 100 mg Capsule
100 mg PO BID
lidocaine [AsperFlex (lidocaine)] 4 % Adhesive Patch,Medicated
1 patch TOPICAL DAILY
metoprolol succinate 50 mg Tablet Extended Release 24 Hr
100 mg PO BID
psyllium Packet
1 packet PO Q12H PRN (Reason: constipation)
lidocaine 4 % Cream
1 applic TOPICAL DAILY
hydralazine 25 mg Tablet
25 mg PO Q8H
alprazolam 0.5 mg Tablet
0.5 mg PO HS PRN (Reason: anxiety)
acetaminophen 325 mg tablet
650 mg PO Q6H PRN (Reason: mild pain/fever)
rosuvastatin 20 mg tablet
20 mg PO HS
Discontinued
melatonin 5 mg Tablet
5 mg PO HS Qty: 0 0RF
Discharge Orders:
Discharge Patient (As Directed); Ordered 11/12/23
Ordered By: Mekhi Noonan
Discharge Date and Time
Print Language: PASHTO
--- NOTE | 2023-11-12 14:24 | CM ---
met with patient who told me she wants to return to her [facility].i explained that they are not able to take patient because she needs short term rehab.patient told me to call her son nicole. nicole that he is fine with patient going to [facility]
today.i explained medicare letter to patient and she signed imm letter.i also told patient son was okay with discharge to facility.
phone number for report is [phone] and fax [phone].transport sceduled for 7:45 pm,called [facility] and she told me it is okay to send patient.
[2023-11-12 15:12] VITALS: BP 146/76
--- NOTE | 2023-11-12 16:01 | W.HF.CON ---
Heart Failure
- LV Function
Left ventricular function study result: LV Ejection fraction >40%
Ejection Fraction Percentage: 55-6
- ARNI
Patient already on ARNI: No
Heart Failure ARNI Not Indicated: LV Ejection Fraction >/= 40%
- ACEI/ARB
Patient already on ACEI/ARB: No
Heart Failure ACEI/ARB Not Indicated: LV Ejection Fraction > 40%
- Beta Rikki
Patient already on Evidence Based Beta Rikki: Yes
- Mineralocorticord Receptor Antagonist
Patient already on MRA: No
Heart Failure MRA Not Indicated: LV Ejection Fraction > 40%
- SGLT-2 Inhibitor
Patient already on SGLT-2 Inhibitor: No
Heart Failure SGLT-2 Inhibitor Not Indicated: LV Ejection Fraction >40%
- NYHA CHF Classification
NYHA CHF Classification Level: Class III - Symptoms w/ min exertion, interferes w/ nml daily activity
- ACC/AHA Stage
ACC/AHA Stage: Stage C: Symptomatic Heart Failure
[2023-11-12] MEDS: LOVENOX 40 MG SC (17:37)
== END 2023-11-12 19:45 | DRG 291 ==
LOC: 4 EAST ACU 21:08
PROVIDERS: Clinical Nurse Specialist Family Health; Physician Assistant; ADMITTING PHYSICIAN Internal Medicine; ATTENDING PHYSICIAN Hospitalist; EMERGENCY PHYSICIAN Emergency Medicine; FAMILY PHYSICIAN Hospitalist
DX: I13.0 Hypertensive heart and chronic kidney disease with heart failure and stage 1 through stage 4 chronic kidney disease, or unspecified chronic kidney disease (principal); I50.33 Acute on chronic diastolic (congestive) heart failure; Z68.41 Body mass index [BMI] 40.0-44.9, adult; I87.2 Venous insufficiency (chronic) (peripheral); I89.0 Lymphedema, not elsewhere classified; N18.32 Chronic kidney disease, stage 3b; K21.9 Gastro-esophageal reflux disease without esophagitis; E78.00 Pure hypercholesterolemia, unspecified; E66.01 Morbid (severe) obesity due to excess calories; I83.012 Varicose veins of right lower extremity with ulcer of calf; I83.022 Varicose veins of left lower extremity with ulcer of calf
CPT/HCPCS: 80048; 80053; 83735; 83880; 85025; 87040; 87070; 87077; 87186; 87205; 93306; 97163; 97167; 97530; 99285

== ENCOUNTER → 2023-11-15 10:24 | Outpatient (REF) | payer OTHER, MEDICARE, SELFPAY ==
[2023-11-15 10:51] LABS: Hematocrit 39.1 % (37.0-47.0); Hemoglobin 12.6 g/dL (12.0-16.0); Mean Corp Hgb Conc. 32.2 g/dL (33.0-37.0); Mean Corpuscular Hgb 29.4 pg (27.0-31.0); Mean Corpuscular Volume 91.4 fL (81.0-99.0); Mean Platelet Volume 10.8 fL (7.4-10.4); Platelet Count 248 10^3/uL (130-400); Red Blood Cell Count 4.28 10^6/uL (4.20-5.40); Red Cell Dist. Width 13.8 % (11.5-14.5); White Blood Cell Count 12.8 10^3/uL (4.8-10.8)
[2023-11-15 11:39] LABS: Blood Urea Nitrogen 42 mg/dl (7-17); Calcium 10.5 mg/dl (8.4-10.2); Carbon Dioxide 31 mmol/L (22-30); Chloride 99 mmol/L (98-107); Glucose 100 mg/dl (70-99); Magnesium 1.7 mg/dl (1.6-2.3); Potassium 3.8 mmol/L (3.5-5.1); Sodium 133 mmol/L (135-145); eGFR 27.44
== END ==
LOC: OLABWHC 10:24
PROVIDERS: ATTENDING PHYSICIAN Internal Medicine
DX: I10 Essential (primary) hypertension (principal); E66.9 Obesity, unspecified; K21.9 Gastro-esophageal reflux disease without esophagitis; E78.5 Hyperlipidemia, unspecified
CPT/HCPCS: 36415; 80048; 83735; 85027

== ENCOUNTER → 2023-11-17 10:28 | Outpatient (REF) | payer OTHER, MEDICARE, SELFPAY ==
[2023-11-17 13:48] LABS: Urine Albumin 1+ (Neg - Trace); Urine Bilirubin Negative (Negative); Urine Character Clear (Clear); Urine Color Yellow; Urine Glucose Negative (Negative); Urine Ketone Negative (Negative); Urine Leukocyte Negative (Negative); Urine Nitrite Negative (Negative); Urine Occult Blood Negative (Negative); Urine Specific Gravity 1.015 (<1.030); Urine Urobilinogen Negative (Neg - 1+)
[2023-11-17 14:03] LABS: Urine Calcium Oxalate Crystals Seen; Urine Squamous Cell >30 /LPF (Few)
[2023-11-17 14:04] LABS: Urine Bacteria Few (Negative); Urine Red Blood Cell None Seen /HPF (0-2)
== END ==
LOC: OLABWHC 10:28
PROVIDERS: ATTENDING PHYSICIAN Internal Medicine
DX: N39.0 Urinary tract infection, site not specified (principal)
CPT/HCPCS: 81003; 81015; 87086

== ENCOUNTER → 2023-11-19 02:30 | Outpatient (REF) | payer OTHER, MEDICARE, SELFPAY ==
[2023-11-19 11:45] LABS: Urine Albumin 1+ (Neg - Trace); Urine Bilirubin Negative (Negative); Urine Character Clear (Clear); Urine Color Yellow; Urine Glucose Negative (Negative); Urine Ketone Negative (Negative); Urine Leukocyte Negative (Negative); Urine Nitrite Negative (Negative); Urine Occult Blood Negative (Negative); Urine Urobilinogen Negative (Neg - 1+)
[2023-11-19 12:41] LABS: Urine Squamous Cell 26-30 /LPF (Few)
[2023-11-19 12:42] LABS: Urine Red Blood Cell 0-2 /HPF (0-2)
== END ==
LOC: OLABWHC 02:30
PROVIDERS: ATTENDING PHYSICIAN Family Medicine
DX: I50.33 Acute on chronic diastolic (congestive) heart failure (principal); I87.2 Venous insufficiency (chronic) (peripheral); N18.32 Chronic kidney disease, stage 3b
CPT/HCPCS: 81003; 81015

== ENCOUNTER → 2023-11-22 11:06 | Outpatient (REF) | payer OTHER, MEDICARE, SELFPAY ==
[2023-11-22 11:34] LABS: % Basophils 0.9 % (0-2); % Eosinophils 1.6 % (0-6); % Immature Granulocytes 1.7 % (0-0.5); % Lymphocytes 23.9 % (20.5-51.1); % Neutrophils 64.9 % (42.2-75.2); Absolute Basophils 0.1 10^3/uL (0-0.2); Absolute Eosinophils 0.2 10^3/uL (0-0.7); Absolute Immature Granulocytes 0.2 10^3/uL (0-0.05); Absolute Lymphocytes 3.1 10^3/uL (1.2-3.4); Absolute Monocytes 0.9 10^3/uL (0.1-0.6); Absolute Neutrophils 8.3 10^3/uL (1.4-6.5); Hematocrit 37.7 % (37.0-47.0); Hemoglobin 12.3 g/dL (12.0-16.0); Mean Corp Hgb Conc. 32.6 g/dL (33.0-37.0); Mean Corpuscular Hgb 29.5 pg (27.0-31.0); Mean Corpuscular Volume 90.4 fL (81.0-99.0); Mean Platelet Volume 10.9 fL (7.4-10.4); Nucleated Red Blood Cells % 0 %; Platelet Count 278 10^3/uL (130-400); Red Blood Cell Count 4.17 10^6/uL (4.20-5.40); Red Cell Dist. Width 13.9 % (11.5-14.5); White Blood Cell Count 12.8 10^3/uL (4.8-10.8)
[2023-11-22 11:51] LABS: Blood Urea Nitrogen 47 mg/dl (7-17); Calcium 10.5 mg/dl (8.4-10.2); Carbon Dioxide 25 mmol/L (22-30); Chloride 108 mmol/L (98-107); Glucose 119 mg/dl (70-99); Magnesium 1.7 mg/dl (1.6-2.3); Potassium 4.1 mmol/L (3.5-5.1); Sodium 140 mmol/L (135-145); eGFR 34.15
== END ==
LOC: OLABWHC 11:06
PROVIDERS: ATTENDING PHYSICIAN Internal Medicine
DX: I10 Essential (primary) hypertension (principal); I89.0 Lymphedema, not elsewhere classified; N18.32 Chronic kidney disease, stage 3b
CPT/HCPCS: 36415; 80048; 83735; 85025